=== PATIENT | female | born 1960 | race Caucasian/White ===

== ENCOUNTER 2016-12-21 09:33 | Emergency (ER) | payer OTHER, BC ==
[2016-12-21] MEDS ORDERED: IBUPROFEN 600 MG TABLET (FP) PO ONE (09:40)
[2016-12-21 09:43] VITALS: BP 149/99; PULSE 76; TEMP 98.5; BMI 41.5
--- NOTE | 2016-12-21 09:45 | PDOC ---
History of Present Illness - General Chief Complaint: Injury Stated Complaint: LEFT LEG PAIN S/P FALL X 5 DAYS AGO Time Seen by Provider: 12/21/16 09:39 History Source: Patient Exam Limitations: No Limitations - History of Present Illness Initial Comments: 12/21/16 09:47 56 year old female with past medical history of asthma presents with left knee pain x 1 week. The patient had recently been on vacation in [place]. Was walking down stairs when she missed a step. She felt onto both her knees. Denies other injuries. Pt has been ambulatory since last week. Reports pain in right knee and bruising, but that had improved. However, pt continues to report discomfort in left knee, particularly in certain twisting movements. Denies numbness, weakness. Past History - Past Medical History Allergies/Adverse Reactions: Allergies Allergy/AdvReac Type Severity Reaction Status Date / Time No Known Allergies Allergy Verified 12/21/16 09:43 Home Medications: Ambulatory Orders Budesonide/Formeterol Fumarate [SYMBICORT 80/4.5mcg -] 1 inh PO DAILY 12/21/16 Review of Systems - Review of Systems Able to Perform ROS?: Yes Comments:: 12/21/16 09:49 GENERAL/CONSTITUTIONAL: No fever, weakness. HEAD, EYES, EARS, NOSE AND THROAT: No change in vision. No ear pain or discharge. No sore throat. CARDIOVASCULAR: No chest pain or shortness of breath. RESPIRATORY: No cough, wheezing, or hemoptysis. GASTROINTESTINAL: No abdominal pain, nausea, vomiting, diarrhea, or decreased PO intolerance. GENITOURINARY: No dysuria, frequency, or change in urination. MUSCULOSKELETAL: +left knee pain SKIN: No rash NEUROLOGIC: No headache, vertigo, loss of consciousness, or change in strength/ sensation. ENDOCRINE: No increased thirst. No abnormal weight change. HEMATOLOGIC/LYMPHATIC: No anemia, easy bleeding, or history of blood clots. ALLERGIC/IMMUNOLOGIC: No hives or skin allergy. *Physical Exam - Physical Exam Comments: 12/21/16 09:49 GENERAL: Awake, alert, and fully oriented, in no acute distress. HEAD: No signs of trauma EYES: PERRLA, EOMI, sclera anicteric, conjunctiva clear ABDOMEN: Soft, nontender, normoactive bowel sounds. No guarding, no rebound. No masses EXTREMITIES: Normal range of motion, no edema. No clubbing or cyanosis. No cords, erythema, or tenderness Gait with mild antalgic gait. Sensation intact throughout. mild TTP tibial plateau region. Varus/valgus stress negative. negative anterior/posterior drawer test. Some discomfort elicited in knee with certain inversion and eversion movements of left knee NEUROLOGICAL: Cranial nerves II through XII grossly intact. Normal speech, normal gait SKIN: Warm, Dry, normal turgor, no rashes or lesions noted. ED Treatment Course - RADIOLOGY Radiology Studies Ordered: Category Date Time Status KNEE 3 POS-LEFT [RAD] Stat Radiology 12/21/16 09:39 Ordered Medical Decision Making - Medical Decision Making 12/21/16 09:50 Likely knee sprain. Knee xray to r/o fracture. Pt ambulatory for the last week. If xray negative, will RAINA wrap. RICE therapy. Weight bearing as tolerated. Follow up with orthopedics for likely PT and possible MRI as an outpatient. 12/21/16 10:26 Xray reviewed: There is some mild articular surface irregularity along the medial facet of the patella with question of small calcific fragments in this region on the sunrise view. There is also question of a small subchondral lucency in the medial trochlea. Findings may reflect osteochondral injury. I had discussed the option of a possible knee immobilizer and crutches. However, pt is concerned that she was having difficulty coordinating with a cane. Given risk of falling, and since the patient has been ambulatory for a week already, RAINA wrap was applied and patient was placed on weight bearing as tolerated. They will go make an appointment with DR. Lester office. Copy of xray report given to the patient. I discussed the physical exam findings, ancillary test results and final diagnoses with the patient. I answered all of the patient's questions. The patient was satisfied with the care received and felt comfortable with the discharge plan and treatment plan. The patient will call their primary care physician within 24 hours to arrange follow-up and will return to the Emergency Department with any new, persistant or worsening symptoms. *DC/Admit/Observation/Transfer Diagnosis at time of Disposition: Knee pain, left Qualifiers: Chronicity: acute Qualified Code(s): M25.562 - Pain in left knee - Discharge Dispostion Disposition: HOME Condition at time of disposition: Stable - Referrals Referrals: Anand Lester MD [Staff Physician] - - Patient Instructions Printed Discharge Instructions: DI for Knee Pain Additional Instructions: Take 600 mg ibuprofen every 6 to 8 hours as needed for pain. Elevate the leg as much as you can. Ice as needed. RAINA wrap. Follow up with orthopedics. Take the copy of the xray and bring it to your orthopedist.
== END 2016-12-21 10:37 | disposition home or self-care (01) ==
LOC: FER 09:33
DX: M25.562 Pain in left knee (principal); J45.909 Unspecified asthma, uncomplicated; W10.8XXA Fall (on) (from) other stairs and steps, initial encounter; Y93.89 Activity, other specified; Y92.89 Other specified places as the place of occurrence of the external cause
CPT/HCPCS: 73562-TC-LT; 99282-25

== ENCOUNTER 2017-03-02 08:05 | Day surgery (SDC) | payer OTHER, BC ==
[2017-03-01 13:54] VITALS: BMI 41.2
[2017-03-02] MEDS ORDERED: PROPOFOL 20 ML ONE ×3 (08:44)
[2017-03-02] MEDS ORDERED: LIDOCAINE HCL/PF 2% SDV 5ML VIAL ONE (08:44)
[2017-03-02] MEDS ORDERED: ALBUTEROL SO4 6.7 GM HFA INHALER IH ONE (09:02)
[2017-03-02 09:53] VITALS: TEMP 98.3
[2017-03-02 10:16] VITALS: PULSE 84
[2017-03-02 11:07] VITALS: BP 134/60
== END 2017-03-02 11:07 | disposition home or self-care (01) ==
LOC: JASU-ENDO 08:05
PROVIDERS: ATTEND Internal Medicine Gastroenterology
PROC: 0DJD8ZZ Inspection of Lower Intestinal Tract, Via Natural or Artificial Opening Endoscopic (ICD-10-PCS; principal; 2017-03-02 09:00)
DX: Z12.11 Encounter for screening for malignant neoplasm of colon (principal); K64.8 Other hemorrhoids

== ENCOUNTER 2017-03-03 05:25 | Day surgery (SDC) | payer OTHER, BC ==
[2017-02-24 19:00] VITALS: BMI 41.2
--- NOTE | 2017-02-25 11:12 | HP ---
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 History Source: Patient Limitations to Obtaining History: No Limitations - Past Medical History Pulmonary: Yes: Asthma Gastrointestinal: Yes: Other (achalasia) - Past Surgical History Past Surgical History: Yes: Hysterectomy Additional Past Surgical History: esophageal dilatation x 2 pilonidal cyst excision myomectomy - Smoking History Smoking history: Former smoker Have you smoked in the past 12 months: No If you are a former smoker, when did you quit?: 2011 - Alcohol/Substance Use Hx Alcohol Use: Yes (SOCIALLY) Home Medications - Allergies Allergies/Adverse Reactions: Allergies Allergy/AdvReac Type Severity Reaction Status Date / Time No Known Allergies Allergy Verified 12/21/16 09:43 - Home Medications Home Medications: Ambulatory Orders Budesonide/Formeterol Fumarate [SYMBICORT 80/4.5mcg -] 1 inh PO DAILY 12/21/16 Albuterol Sulfate [Proair Respiclick] 90 mcg IH PRN PRN 02/24/17 Family Disease History - Family Disease History Family Disease History: CA: Grandparent (breast cancer 60s), Father (colon cancer at 86) Other Family History: paternal GM breast cancer 50s. maternal GF colon cancer 86 Review of Systems - Review of Systems Constitutional: reports: No Symptoms Cardiovascular: reports: No Symptoms Respiratory: reports: No Symptoms Physical Examination Constitutional: Yes: Well Nourished, Calm Breast(s): Yes: Other (Ptotic D cup breasts with ecchymosis noted at core bx site. Left upper inner palpable density measuring about 2 cm. No other suspicious masses or adenopathy noted bilaterally.) Problem List - Problems (1) Breast cancer, left Code(s): C50.912 - MALIGNANT NEOPLASM OF UNSPECIFIED SITE OF LEFT FEMALE BREAST Qualifiers: Breast location: upper inner quadrant of breast Patient sex: female Assessment/Plan Plan: infusaport placement
[2017-03-03] MEDS ORDERED: PALONOSETRON HCL 0.25 MG in SODIUM CHLORIDE 50 ML IVPB ONE (10:00)
[2017-03-03] MEDS ORDERED: SODIUM CHLORIDE 500 ML IV ONE ×2 (10:00)
[2017-03-03] MEDS ORDERED: FOSAPREPITANT DIMEGLUMINE 150 MG in SODIUM CHLORIDE 150 ML IVPB ONE (10:00)
[2017-03-03] MEDS ORDERED: DEXAMETHASONE INJECTION 10 MG in SODIUM CHLORIDE 50 ML IVPB ONE (10:00)
[2017-03-03 10:08] LABS: BASOPHIL 0.7 % (0-2.0); EOSINOPHIL 3.2 % (0-4.5); MCH 28.1 pg (25.7-33.7); MCHC 33.7 g/dl (32.0-36.0); MEAN CELL VOLUME 83.5 fl (80-96); MEAN PLT VOLUME 8.7 fl (7.5-11.1); PLATELET COUNT 184 K/MM3 (134-434); RDW 14.3 % (11.6-15.6)
[2017-03-03 10:27] LABS: ALBUMIN 3.8 g/dl (3.4-5.0); ALK PHOS 73 U/L (45-117); ANION GAP 6 (8-16); BILIRUBIN,TOTAL 0.5 mg/dL (0.2-1.0); CO2 30 mmol/L (21-32); CREATININE 0.7 mg/dL (0.55-1.02); GLUCOSE,RANDOM 112 mg/dL (74-106); MAGNESIUM 2.5 mg/dL (1.8-2.4); SGOT/AST 21 U/L (15-37); SGPT/ALT 20 U/L (12-78); TOT PROT 6.9 g/dl (6.4-8.2)
[2017-03-03] MEDS ORDERED: DOXORUBICIN HCL IV ONE (10:30)
[2017-03-03] MEDS ORDERED: SODIUM CHLORIDE IV ONE (10:30)
[2017-03-03] MEDS ORDERED: CYCLOPHOSPHAMIDE IVPB ONE ×2 (10:45)
[2017-03-03] MEDS ORDERED: SODIUM CHLORIDE IVPB ONE ×2 (10:45)
[2017-03-03] MEDS ORDERED: LIDOCAINE HCL 1%, 10 MG/ML (20ML VIAL) ONE ×2 (11:07→12:56)
[2017-03-03] MEDS ORDERED: KETOROLAC TROMETHAMINE 30 MG/1 ML VIAL IVPUSH ONE (11:16)
[2017-03-03] MEDS ORDERED: ONDANSETRON 4 MG/2 ML VIAL IVPB PRN (11:16)
[2017-03-03] MEDS ORDERED: DEXTROSE 5%-0.45% SALINE 1,000 ML IV SCH (11:30)
[2017-03-03] MEDS ORDERED: MIDAZOLAM HCL 2 MG/2 ML SINGLE DOSE VIAL ONE (11:36)
[2017-03-03] MEDS ORDERED: PROPOFOL 20 ML ONE ×3 (11:36→12:33)
[2017-03-03] MEDS ORDERED: SUCCINYLCHOLINE CHLORIDE 200 MG/10 ML VIAL ONE (11:37)
[2017-03-03] MEDS ORDERED: DEXAMETHASONE SOD PHOSPHATE 4 MG/1 ML VIAL ONE (11:53)
[2017-03-03] MEDS ORDERED: ceFAZolin SODIUM 1 GM VIAL IVPB ONE (11:56)
[2017-03-03] MEDS ORDERED: SODIUM CHLORIDE 250 ML IV ONE (12:00)
[2017-03-03] MEDS ORDERED: LIDOCAINE HCL 1%, 10 MG/ML (20ML VIAL) IJ ONE (12:58)
[2017-03-03] MEDS ORDERED: KETOROLAC TROMETHAMINE 30 MG/1 ML VIAL ONE (13:58)
[2017-03-03 19:28] VITALS: TEMP 98.3
[2017-03-03 20:38] VITALS: BP 127/75; PULSE 66
--- NOTE | 2017-03-04 13:24 | OP ---
DATE OF OPERATION: 03/03/2017 PREOPERATIVE DIAGNOSIS: Left breast cancer. POSTOPERATIVE DIAGNOSIS: Left breast cancer, upper inner quadrant location. ANESTHESIA: Local with IV sedation. PRIMARY SURGEON: Paty Vivar MD SINGER SONGWRITER: CHRISTINA Mcdonough COMPLICATIONS: There were no complications. PROCEDURE: Insertion of a right internal jugular single-lumen port-a-cath for intravenous chemotherapy. DESCRIPTION OF PROCEDURE: Briefly, the patient is a 56-year-old G-1, P-1 postmenopausal white female with [place]i, Cam[place]onian, and Maltese descent. She has a family history with her maternal grandmother and paternal grandmother who had breast cancer. Her father had colon cancer. The patient was found to have a palpable mass in the upper inner aspect of the left breast, and mammography and ultrasound performed in Jan, 2017, showed a 2.1-cm highly suspicious density in the upper inner aspect of the left breast with a suspicious axillary lymph node. Core biopsy of the breast mass showed a poorly differentiated triple negative invasive duct cancer with a proliferative index of 40%. Axillary lymph node was biopsied and was positive. The patient underwent a MRI showing the mass in the left breast and suspicious lymph node. There were other bilateral densities, but directed ultrasound showed these other areas to be benign. The patient was advised to seek medical oncology evaluation and was a candidate for neoadjuvant chemotherapy. She was advised to have a port-a-cath placed to begin chemotherapy. The patient was brought in to [facility] to ambulatory surgery on March 03, 2017. She did have a slight cold and had had a colonoscopy the day before. She was felt to be afebrile and stable for the procedure, and on speaking to the medical oncologist, she wanted to start chemotherapy the same day. The patient was thus brought into the operating room after signing informed consent and site verification was made. She laid down on the OR table in the supine position. Venodynes were placed on the lower extremities. She received a gram of Ancef prior to incision. She underwent IV sedation. The right upper chest wall and neck were sterilely prepped and draped in the usual fashion. Her right arm was tucked at her side. She had a rolled sheet placed under her midline spine. Once she was properly anesthetized, 1% lidocaine was given directly underneath the right clavicle, and multiple attempts to access the right subclavian vein were unsuccessful. We used the intraoperative ultrasound, could not really see the vein well, and it is likely due to some dehydration from her being n.p.o. for her colonoscopy the day before, now for this surgery today. We were easily able to see the internal jugular vein, however, and so, we used the internal jugular vein approach, and the right internal jugular vein was accessed under ultrasound guidance, and a wire was placed into the superior vena cava under fluoroscopy. The wire was clipped to the drape. At this point, the upper right chest wall was anesthetized again with 1% lidocaine, and a 3-cm incision was made just below the right clavicle, and an infraclavicular pocket was fashioned. Hemostasis was achieved. The catheter was then tunneled from the infraclavicular pocket up to the exit side of the wire from the skin and the lower right neck. The port-a-cath chamber was placed into the infraclavicular pocket after being attached to the port-a-cath catheter and was secured in place using two separate 2-0 Prolene sutures. At this point, the introducer with the dilator was placed over the wire under fluoroscopy without difficulty, and the dilator was removed. The catheter was threaded down to the tear-away sheath, and the tear-away sheath was torn away leaving the catheter in good position in the superior vena cava. There was excellent blood return from the port-a-cath chamber. It was flushed with dilute heparin at 10 units per mL. At this point, all the wounds were closed using interrupted 3-0 deep dermal Vicryl suture and a running 4-0 subcuticular Biosyn suture to close the skin. Mastisol and Steri-Strips were applied over the wounds. The port-a-cath chamber was then accessed with the Arora needle and had good blood return and was flushed with 1.5 mL of concentrated heparin at 1000 units per mL. The patient tolerated the procedure well, was awake and alert, brought to the post-anesthesia care unit in stable condition. All sponge and needle counts were correct at the end of the case, and estimated blood loss was minimal. We did do a chest x-ray in the post-anesthesia care unit showing no pneumohemothorax and line was in good position. It can be used same day, and she will be transferred up to the outpatient oncology floor when she is fully recovered to start her first cycle of chemotherapy. The patient should follow up in the office in one week for formal wound pathology check. PATY VIVAR M.D. [id number]
== END 2017-03-03 20:47 | disposition home or self-care (01) ==
LOC: JASU-SURG 05:25 → J7W 15:05 → JASU-SURG 20:47
PROVIDERS: ATTEND Internal Medicine Hematology & Oncology
PROC: B518ZZA Fluoroscopy of Superior Vena Cava, Guidance (ICD-10-PCS; 2017-03-03)
PROC: 02HV33Z Insertion of Infusion Device into Superior Vena Cava, Percutaneous Approach (ICD-10-PCS; principal; 2017-03-03 11:30)
DX: C50.212 Malignant neoplasm of upper-inner quadrant of left female breast (principal); Z80.3 Family history of malignant neoplasm of breast
CPT/HCPCS: 36415; 71010-TC; 76000-TC; 80053; 83735; 84134; 85025; 86480; 94760; 96360; 96361; 96367; 96375; 96413; 96417; J1453; J1644; J2469; J9070

== ENCOUNTER 2017-03-04 18:19 | Day surgery (SDC) | payer OTHER, BC ==
[~2017-03-04 18:19] MED LIST: PEGFILGRASTIM 6 MG/0.6 ML DISP.SYRIN SQ ONE
[2017-03-04 18:43] VITALS: BP 132/73; PULSE 75; TEMP 98.8; BMI 40.5
== END 2017-03-04 19:09 | disposition home or self-care (01) ==
LOC: JONCNONCHE 18:19 → J7W 18:20 → JONCNONCHE 19:09
PROVIDERS: ATTEND Internal Medicine Hematology & Oncology
PROC: 3E013GC Introduction of Other Therapeutic Substance into Subcutaneous Tissue, Percutaneous Approach (ICD-10-PCS; principal; 2017-03-04)
DX: C50.212 Malignant neoplasm of upper-inner quadrant of left female breast (principal); Z80.3 Family history of malignant neoplasm of breast
CPT/HCPCS: 96372; J2505

== ENCOUNTER 2017-03-08 07:53 | Inpatient (IN) | payer OTHER, BC ==
[2017-03-08 07:58] VITALS: BMI 41.2
--- NOTE | 2017-03-08 08:18 | PDOC ---
History of Present Illness - General Chief Complaint: Shortness of Breath Stated Complaint: SOB History Source: Patient Exam Limitations: No Limitations - History of Present Illness Initial Comments: 03/08/17 10:15 This is a 56 yo F with PMH of Breast CA s/p chemo port placement and jan dose chemo on and Asthma (on daily symbicort and albuterol), who presents to ED with sob. She had uri symptoms last sat including dry cough and some nasal congestion. after her first chemo on she had 2 doses of dexamethasone and felt better but after the last dose developed increased sob, wheezing and mild throat pain. she denies f/c, chest pain h/a, dizziness, palpitations, hemoptysis , abd pain, diarrhea, constipation, n/v, melena, hematochezia. Pulse ox 93% on RA PCP Dr Song Onc: Dr Ch 03/08/17 10:34 03/08/17 10:43 Past History - Travel Traveled outside of the country in the last 30 days: No Close contact w/someone who was outside of country & ill: No - Past Medical History Allergies/Adverse Reactions: Allergies Allergy/AdvReac Type Severity Reaction Status Date / Time No Known Allergies Allergy Verified 03/08/17 07:58 Home Medications: Ambulatory Orders Budesonide/Formeterol Fumarate [SYMBICORT 80/4.5mcg -] 1 inh PO DAILY 12/21/16 Loratadine [Claritin] 10 mg PO DAILY 03/01/17 Albuterol Sulfate [Proventil HFA Inhaler -] 1 - 2 inh PO TID PRN 03/03/17 Anemia: No Asthma: Yes Cancer: Yes (BREAST) Cardiac Disorders: No CVA: No COPD: No CHF: No Dementia: No Diabetes: No GI Disorders: Yes (ACCHALASIA) Disorders: No HTN: No Hypercholesterolemia: No Liver Disease: No Seizures: No Thyroid Disease: No - Surgical History Abdominal Surgery: Yes (ESOPHAGEAL DIALATATION) Appendectomy: No Cardiac Surgery: No Cholecystectomy: No Lung Surgery: No Neurologic Surgery: No Orthopedic Surgery: No - Psycho/Social/Smoking Cessation Hx Anxiety: No Suicidal Ideation: No Smoking History: Former smoker Have you smoked in the past 12 months: No If you are a former smoker, when did you quit?: 15 YEARS AGO Information on smoking cessation initiated: No Hx Alcohol Use: No Drug/Substance Use Hx: No Substance Use Type: None Hx Substance Use Treatment: No Review of Systems - Review of Systems Able to Perform ROS?: Yes Is the patient limited Nauruan proficient: No Constitutional: No: Chills, Fever HEENTM: Yes: Nose Congestion, Throat Pain. No: Blurred Vision Respiratory: Yes: Cough, Shortness of Breath, Wheezing. No: Productive cough Cardiac (ROS): No: Chest Pain, Edema, Lightheadedness, Palpitations, Syncope, Chest Tightness ABD/GI: No: Constipated, Diarrhea, Nausea, Vomiting, Abdominal cramping, Tarry Stools : No: Dysuria, Flank Pain Musculoskeletal: No: Back Pain, Joint Pain Integumentary: No: Bruising, Pruritus, Rash Neurological: No: Headache, Numbness, Paresthesia Psychiatric: No: Anxiety, Depression Endocrine: No: Excessive Sweating, Increased Urine, Change in Weight Hematologic/Lymphatic: No: Anemia, Blood Clots, Easy Bleeding, Easy Bruising All Other Systems: Reviewed and Negative *Physical Exam - Vital Signs Last Vital Signs Temp Pulse Resp BP Pulse Ox 98.1 F 71 18 133/79 93 L 03/08/17 07:54 03/08/17 07:54 03/08/17 07:54 03/08/17 07:54 03/08/17 07:54 - Physical Exam Comments: 03/08/17 10:35 GENERAL: NAD AAOx3 HEENT: PERRLA EOMI sclera anicteric, conjunctiva clear. CV: RRR s1s2 PULM diffuse wheezes L>R, restricted air entry GI: nondistended, soft, nontender, no mass, normoactive bowel sounds NEURO: CN grossly intact SKIN: no lesions Heart Score/ECG Review #1 General ECG Interpretation: Sinus Rhythm, Normal Rate, Normal Intervals, No acute ischemic changes ED Treatment Course - LABORATORY CBC & Chemistry Diagram: 03/08/17 09:10 03/08/17 09:10 Medical Decision Making - Medical Decision Making 03/08/17 10:36 Patient presents with clinical picture most consistent with asthma exacerbation , r/o PNA, bronchitis, acute chest with neutopenia. PE unlikley given no chest pain and no tachycardia sepsis workup initiated per conversation with Dr Ch CXR ordered, EKG Started on 2L NC, diuonebs, symbicort, 125 IV solumedrol 03/08/17 10:39 WBC 13.5 Neutrophils 93.5 Started on Levaquin 03/08/17 10:[address] Song, will place patient in obs. 03/08/17 10:52 03/08/17 11:35 CXR no change from prior 03/08/17 11:35 cmp unremarkable. UA 1+ leuk est *DC/Admit/Observation/Transfer Diagnosis at time of Disposition: Breast cancer, left, Asthma exacerbation - Discharge Dispostion Admit: Yes - Referrals
[2017-03-08] MEDS ORDERED: BUDESONIDE/FORMETEROL FUMARATE 160/4.5 mcg INHALER IH ONE (08:34)
[2017-03-08] MEDS ORDERED: ALBUTEROL SO4 2.5/IPRATROPIUM 0.5 INH SOL 3 ML VIAL.NEB. NEB ONE ×2 (08:34→08:45)
[2017-03-08] MEDS ORDERED: SODIUM CHLORIDE 1,000 ML IV ONE (08:46)
--- NOTE | 2017-03-08 09:07 | PDOC ---
Attending Attestation - Resident Resident Name: Michelle Little - ED Attending Attestation I have performed the following: I have examined & evaluated the patient, The case was reviewed & discussed with the resident, I agree w/resident's findings & plan, Exceptions are as noted - HPI HPI: 03/08/17 09:03 56-year-old female with history of mild intermittent asthma, breast cancer status post first round of chemotherapy 5 days ago presents with persistent/ worsening of upper respiratory infectious symptoms. URI symptoms of dry cough and congestion began about one week ago, had her chemotherapy 5 days ago and feels that since then her chest congestion has slightly worsened, her cough has become more persistent, so she presents for evaluation after speaking with Dr. Ch. MAXIMUM TEMPERATURE 99.5 at home, distant smoking history quitting 15 years ago, no baseline anemia. - Physicial Exam PE: 03/08/17 09:06 O2 sat 93% on room air, afebrile. Generally well-appearing, speaking full sentences, in no acute general or respiratory distress Bibasilar rhonchi with inspiratory and expiratory wheezing, otherwise good air entry bilaterally - Medical Decision Making 03/08/17 09:06 Patient seen and evaluated with the resident. I agree with the overall evaluation, assessment, and management with the following summary of visit: 56-year-old female status post first round of chemotherapy for breast cancer, history of asthma presents with worsening URI symptoms. Presentation seems most consistent with asthma exacerbation, possible underlying pneumonia. Rule out neutropenia, lower suspicion for PE. Case discussed with Dr. Ch sepsis workup initiated nebulizers, cxr Per Dr. Ch, will likely start on abx Will discuss dispo with Dr. Flynn 03/08/17 10:44 Not neutropenic. Feels better after nebs. Received abx, admitted to Dr. Flynn with Dr. Ch consulting.
[2017-03-08 09:51] LABS: VENOUS BLOOD GAS HCO3 29.1 meq/L (19-25); VENOUS PH 7.46 (7.32-7.42)
[2017-03-08 09:59] LABS: URINE APPEARANCE CLEAR; URINE BILIRUBIN NEGATIVE (NEGATIVE); URINE BLOOD NEGATIVE (NEGATIVE); URINE COLOR LTYELLOW; URINE GLUCOSE (UA) NEGATIVE (NEGATIVE); URINE KETONE NEGATIVE (NEGATIVE); URINE NITRITE NEGATIVE (NEGATIVE); URINE PROTEIN NEGATIVE (NEGATIVE); URINE UROBILINOGEN NEGATIVE E.U./dl (0.2-1.0)
[2017-03-08 10:01] LABS: BASOPHIL 0.2 % (0-2.0); EOSINOPHIL 0.4 % (0-4.5); MCHC 33.4 g/dl (32.0-36.0); MEAN CELL VOLUME 83.7 fl (80-96); MEAN PLT VOLUME 8.9 fl (7.5-11.1); NEUTROPHILS 93.5 % (42.8-82.8); PLATELET COUNT 160 K/MM3 (134-434); WHITE BLOOD COUNT 13.5 K/mm3 (4.0-10.0)
[2017-03-08 10:02] LABS: URINE LEUK ESTERASE 1+ (NEGATIVE)
[2017-03-08] MEDS ORDERED: LEVOFLOXACIN 750 MG IVPB 150 ML IVPB ONE ×2 (10:14→11:44)
[2017-03-08 10:16] LABS: URINE MUCUS RARE; URINE RBC 1 /hpf (0-3); URINE WBC 3 /hpf (3-5)
[2017-03-08 10:17] LABS: ALBUMIN 3.8 g/dl (3.4-5.0); ANION GAP 10 (8-16); BILIRUBIN,TOTAL 0.8 mg/dL (0.2-1.0); CALCIUM 8.3 mg/dL (8.5-10.1); CO2 27 mmol/L (21-32); COCKROFT - GAULT 185.9205; CREATININE 0.6 mg/dL (0.55-1.02); GLUCOSE,RANDOM 97 mg/dL (74-106); SGOT/AST 12 U/L (15-37); SGPT/ALT 22 U/L (12-78); TOT PROT 6.8 g/dl (6.4-8.2)
[2017-03-08 10:18] LABS: ALK PHOS 91 U/L (45-117)
[2017-03-08 10:20] LABS: TROPONIN I < 0.02 ng/ml (0.00-0.05)
[2017-03-08] MEDS ORDERED: methylPREDNISolone NA SUCC 125 MG/2 ML VIAL IVPB ONE (10:42)
--- NOTE | 2017-03-08 10:47 | EKG ---
Test Reason : Blood Pressure : / mmHG Vent. Rate : 075 BPM Atrial Rate : 075 BPM P-R Int : 158 ms QRS Dur : 090 ms QT Int : 418 ms P-R-T Axes : 053 001 022 degrees QTc Int : 466 ms NORMAL SINUS RHYTHM NORMAL ECG WHEN COMPARED WITH ECG OF 24-FEB-2017 17:39, NO SIGNIFICANT CHANGE WAS FOUND Confirmed by GIRISH TREJO MD ([id number]) on 03/08/2017 10:47:22 AM Referred By: Confirmed By:GIRISH TREJO MD
[2017-03-08 11:08] LABS: INR 0.99 (0.82-1.09); PROTHROMBIN TIME (PATIENT) 10.9 SEC (9.98-11.88)
[2017-03-08 11:10] LABS: ACTIVATED PTT 28.5 SECONDS (26.9-34.4)
[2017-03-08] MEDS ORDERED: ACETAMINOPHEN 325 MG TABLET (FP) PO PRN (14:13)
--- NOTE | 2017-03-08 14:14 | HP ---
Admitting History and Physical - Primary Care Physician PCP: Quentin Gibson - Admission Chief Complaint: shortness of breath History of Present Illness: 56yo female with h/o asthma, breast ca s/p 1st chemotherapy session on Mar 03 who presents with worsening shortness of breath x 1 day. She had been placed on decadron along with her chemotherapy but the decadron was discontinued 2 days ago. She reports increasing shortness of breath, chest tightness, wheezing typical of her asthma. She has been hospitalized in the past for her asthma but never intubated. Her best peak flow is around 400. No fevers, chills or sweats. She does report sick contacts at home but denies any recent travel. History Source: Patient, Medical Record Limitations to Obtaining History: No Limitations - Past Medical History Pulmonary: Yes: Asthma Gastrointestinal: Yes: Other (achalasia) - Past Surgical History Past Surgical History: Yes: Hysterectomy Additional Past Surgical History: port placement - Smoking History Smoking history: Former smoker Have you smoked in the past 12 months: No If you are a former smoker, when did you quit?: 15 YEARS AGO - Alcohol/Substance Use Hx Alcohol Use: No Home Medications - Allergies Allergies/Adverse Reactions: Allergies Allergy/AdvReac Type Severity Reaction Status Date / Time No Known Allergies Allergy Verified 03/08/17 07:58 - Home Medications Home Medications: Ambulatory Orders Budesonide/Formeterol Fumarate [SYMBICORT 80/4.5mcg -] 1 inh PO DAILY 12/21/16 Loratadine [Claritin] 10 mg PO DAILY 03/01/17 Albuterol Sulfate [Proventil HFA Inhaler -] 1 - 2 inh PO TID PRN 03/03/17 Family Disease History - Family Disease History Family Disease History: CA: Grandparent (breast cancer 60s), Father (colon cancer at 86) Review of Systems - Review of Systems Constitutional: denies: Chills, Fever Eyes: denies: Recent Change in Vision HENT: denies: Nasal Congestion, Throat Pain Neck: denies: Stiffness, Tenderness Cardiovascular: reports: Shortness of Breath. denies: Chest Pain, Edema, Palpitations Respiratory: reports: Cough, SOB on Exertion, Wheezing. denies: Hemoptysis Gastrointestinal: denies: Abdominal Pain, Nausea, Vomiting Genitourinary: denies: Dysuria, Hematuria Neurological: denies: Dizziness, Headache Endocrine: denies: Unexplained Weight Loss Physical Examination Vital Signs: Vital Signs Temperature 98.1 F 03/08/17 07:54 Pulse Rate 75 03/08/17 08:50 Respiratory Rate 18 03/08/17 07:54 Blood Pressure 133/79 03/08/17 07:54 O2 Sat by Pulse Oximetry (%) 97 03/08/17 08:50 Constitutional: Yes: Calm Eyes: Yes: Conjunctiva Clear, EOM Intact HENT: Yes: Atraumatic, Normocephalic Neck: Yes: Supple, Trachea Midline Cardiovascular: Yes: Regular Rate and Rhythm Respiratory: Yes: Diminished (distant), Wheezes (scattered) Gastrointestinal: Yes: Normal Bowel Sounds, Soft. No: Tenderness Edema: No Neurological: Yes: Alert, Oriented Imaging - Results Chest X-ray: Report Reviewed, Image Reviewed Problem List - Problems (1) Asthma exacerbation Code(s): J45.901 - UNSPECIFIED ASTHMA WITH (ACUTE) EXACERBATION (2) Breast cancer, left Code(s): C50.912 - MALIGNANT NEOPLASM OF UNSPECIFIED SITE OF LEFT FEMALE BREAST Assessment/Plan Acute Asthma Exacerbation Breast Ca s/p recent chemotherapy - IV medrol - inhaled bronchodilators standing and PRN - O2 as needed - monitor peak flow - empiric antibiotics - DVT prophylaxis - will place in observation Rohith Bright MD
[2017-03-08] MEDS ORDERED: ALBUTEROL SO4 0.083% IH SOL 2.5 MG/3 ML VIAL.NEB. NEB PRN (14:23)
[2017-03-08] MEDS ORDERED: PNEUMOC 13-VAL CONJ-DIP CRM/PF 0.5 ML DISP.SYRIN IM ONE (15:45)
[2017-03-08] MEDS: methylPREDNISolone NA SUCC 40 MG/1 ML VIAL IVPB SCH (17:43)
[2017-03-08] MEDS: ALBUTEROL SO4 2.5/IPRATROPIUM 0.5 INH SOL 3 ML VIAL.NEB. NEB SCH ×2 (18:31→23:30)
[2017-03-09] MEDS: methylPREDNISolone NA SUCC 40 MG/1 ML VIAL IVPB SCH ×3 (02:11→18:02)
[2017-03-09] MEDS: ALBUTEROL SO4 2.5/IPRATROPIUM 0.5 INH SOL 3 ML VIAL.NEB. NEB SCH ×3 (06:40→17:38)
[2017-03-09 08:43] LABS: MCH 28.1 pg (25.7-33.7); MCHC 33.7 g/dl (32.0-36.0); MEAN CELL VOLUME 83.4 fl (80-96); MEAN PLT VOLUME 9.3 fl (7.5-11.1); NEUTROPHILS 95.5 % (42.8-82.8); PLATELET COUNT 152 K/MM3 (134-434); RDW 13.9 % (11.6-15.6); WHITE BLOOD COUNT 5.5 K/mm3 (4.0-10.0)
[2017-03-09 09:03] LABS: CALCIUM 8.3 mg/dL (8.5-10.1); CREATININE 0.5 mg/dL (0.55-1.02); MAGNESIUM 2.4 mg/dL (1.8-2.4); PHOSPHOROUS 2.6 mg/dL (2.5-4.9)
[2017-03-09] MEDS ORDERED: LEVOFLOXACIN 500 MG IVPB 100 ML IVPB ONE (10:00)
[2017-03-09] MEDS: LORATADINE 10 MG TABLET PO SCH (11:13)
[2017-03-09] MEDS: BUDESONIDE/FORMETEROL FUMARATE 80/4.5 mcg INHALER IH SCH (11:19)
--- NOTE | 2017-03-09 13:39 | PN ---
Progress Note (short form) - Note Progress Note: PULMONARY VSS ANICTERIC LEFT BASE CRACKLES S1S2 BS+ NO EDEMA LABS/MEDS/NOTES/IMAGING REVIEWED A/E BRONCHIAL ASTHMA NEWLY DIAGNOSED BREAST CA CONTINUE CURRENT TREATMENT/PLAN CHECK CBC CRYSTAL NOVOA MD
[2017-03-09] MEDS: PANTOPRAZOLE 40 MG TABLET (FP) PO SCH (16:00)
--- NOTE | 2017-03-09 21:33 | CONSULT ---
Consult - text type - Consultation Consultation Note: Patient seen and examined This is a 56 yo F with history of Breast CA stage II, s/p chemo port placement and first dose AC on 03/03, neulasta 03/04, and Asthma (on daily symbicort and albuterol), who presented with sob. She had uri symptoms last sat including dry cough and some nasal congestion. after her first chemo on she had 3 days of dexamethasone and felt better but after the last dose developed increased sob, wheezing and mild throat pain. she denies f/c, chest pain h/a, dizziness, palpitations, hemoptysis, abd pain, diarrhea, constipation , n/v, melena, hematochezia. - Past Medical History Asthma breast cancer --triple perianal fistula Allergies/Adverse Reactions: Allergies Allergy/AdvReac Type Severity Reaction Status Date / Time No Known Allergies Allergy Verified 03/08/17 07:58 Home Medications: Ambulatory Orders Budesonide/Formeterol Fumarate [SYMBICORT 80/4.5mcg -] 1 inh PO DAILY 12/21/16 Loratadine [Claritin] 10 mg PO DAILY 03/01/17 Albuterol Sulfate [Proventil HFA Inhaler -] 1 - 2 inh PO TID PRN 03/03/17 Active Medications Generic Name Dose Route Start Last Admin Trade Name Freq PRN Reason Stop Dose Admin Acetaminophen 650 mg 03/08/17 14:13 Tylenol - PO Q6H PRN FEVER OR PAIN Albuterol Sulfate 1 amp 03/08/17 14:23 Ventolin 0.083% Nebulizer Soln - NEB Q4H PRN SHORT OF BREATH/WHEEZING Albuterol/Ipratropium 1 amp 03/08/17 18:00 03/10/17 12:20 Duoneb - NEB 1 amp QIDR [facility] Administration Budesonide/Formoterol Fumarate 1 puff 03/09/17 10:00 03/10/17 10:13 Symbicort 80/4.5mcg - IH 1 puff DAILY [facility]O Administration Docusate Sodium 100 mg 03/09/17 15:33 03/09/17 21:39 Colace - PO 100 mg BID PRN Administration CONSTIPATION Levofloxacin 100 mls @ 100 mls/hr 03/10/17 10:00 03/10/17 09:57 Levaquin 500 Mg Premixed Ivpb - IVPB 100 mls/hr DAILY [facility] Administration Loratadine 10 mg 03/09/17 10:00 03/10/17 09:57 Claritin - PO 10 mg DAILY [facility] Administration Methylprednisolone Sodium Succinate 30 mg 03/10/17 22:00 Solu-Medrol - IVPB BID C[facility]O Pantoprazole Sodium 40 mg 03/09/17 15:45 03/10/17 09:56 Protonix - PO 40 mg DAILY [facility] Administration Senna 2 tab 03/09/17 15:30 03/09/17 21:39 Senna - PO 2 tab HS PRN Administration CONSTIPATION Zolpidem Tartrate 5 mg 03/09/17 16:04 03/09/17 21:39 Ambien - PO 5 mg HS PRN Administration INSOMNIA - Surgical History Abdominal Surgery: Yes (ESOPHAGEAL DIALATATION) - Psycho/Social/Smoking Cessation Hx Smoking History: Former smoker - Vital Signs Last Vital Signs Temp Pulse Resp BP Pulse Ox 98.1 F 71 18 133/79 93 L 03/08/17 07:54 03/08/17 07:54 03/08/17 07:54 03/08/17 07:54 03/08/17 07:54 - Physical Exam GENERAL: NAD AAOx3 HEENT: PERRLA EOMI sclera anicteric, conjunctiva clear. CV: RRR s1s2 PULM --good air entry. Lt. > rt. base crackles GI: nondistended, soft, nontender, no mass, normoactive bowel sounds NEURO: CN grossly intact SKIN: no lesions A/P 56 y/o patient with h/o triple negative breast cance, stge II, node+, getting neoadjuvant chemotherapy started AC -- C1 D7. s/p neulasta on 03/04 admitted with asthma exacerbation On levaquin/steroids Ramon ANC expected D7-10. currently nl WBC continuing current treatment ambien prn protonix
[2017-03-09] MEDS: ZOLPIDEM TARTRATE 5 MG TABLET PO PRN (21:39)
[2017-03-09] MEDS: DOCUSATE SODIUM 100 MG CAPSULE (FP) PO PRN (21:39)
[2017-03-09] MEDS: SENNOSIDES 8.6MG TABLET (FP) PO PRN (21:39)
[2017-03-10] MEDS: ALBUTEROL SO4 2.5/IPRATROPIUM 0.5 INH SOL 3 ML VIAL.NEB. NEB SCH ×5 (00:04→23:06)
[2017-03-10] MEDS: methylPREDNISolone NA SUCC 40 MG/1 ML VIAL IVPB SCH ×3 (01:05→21:23)
[2017-03-10 08:02] LABS: BASOPHIL 0.1 % (0-2.0); EOSINOPHIL 0.3 % (0-4.5); MCH 27.9 pg (25.7-33.7); MCHC 33.5 g/dl (32.0-36.0); MEAN CELL VOLUME 83.3 fl (80-96); PLATELET COUNT 150 K/MM3 (134-434); RDW 13.9 % (11.6-15.6); WHITE BLOOD COUNT 2.5 K/mm3 (4.0-10.0)
[2017-03-10 08:49] LABS: ALBUMIN 3.6 g/dl (3.4-5.0); ALK PHOS 81 U/L (45-117); ANION GAP 8 (8-16); BILIRUBIN,TOTAL 0.5 mg/dL (0.2-1.0); CALCIUM 8.6 mg/dL (8.5-10.1); CO2 27 mmol/L (21-32); COCKROFT - GAULT 185.9205; CREATININE 0.6 mg/dL (0.55-1.02); GLUCOSE,RANDOM 179 mg/dL (74-106); SGOT/AST 10 U/L (15-37); SGPT/ALT 23 U/L (12-78); TOT PROT 6.7 g/dl (6.4-8.2)
[2017-03-10] MEDS: PANTOPRAZOLE 40 MG TABLET (FP) PO SCH (09:56)
[2017-03-10] MEDS: LORATADINE 10 MG TABLET PO SCH (09:57)
[2017-03-10] MEDS: LEVOFLOXACIN 500 MG IVPB 100 ML IVPB SCH (09:57)
[2017-03-10] MEDS ORDERED: PT OWN MED DRAWER 7, Y5N ONE (10:12)
[2017-03-10] MEDS: BUDESONIDE/FORMETEROL FUMARATE 80/4.5 mcg INHALER IH SCH (10:13)
--- NOTE | 2017-03-10 10:16 | PN ---
Progress Note (short form) - Note Progress Note: Breathing feels better today. Dry cough. No CP. Intake & Output 03/07/17 03/08/17 03/09/17 03/10/17 23:59 23:59 23:59 23:59 Intake Total 890 990 0 Balance 890 990 0 Weight 248 lb Last Vital Signs Temp Pulse Resp BP Pulse Ox 97.8 F 88 20 145/81 96 03/10/17 09:20 03/10/17 09:20 03/10/17 09:20 03/10/17 09:20 03/10/17 03:00 Active Medications Acetaminophen (Tylenol -) 650 mg PO Q6H PRN PRN Reason: FEVER OR PAIN Albuterol Sulfate (Ventolin 0.083% Nebulizer Soln -) 1 amp NEB Q4H PRN PRN Reason: SHORT OF BREATH/WHEEZING Albuterol/Ipratropium (Duoneb -) 1 amp NEB QIDR [facility] Last Admin: 03/10/17 07:01 Dose: 1 amp Budesonide/Formoterol Fumarate (Symbicort 80/4.5mcg -) 1 puff IH DAILY [facility] Last Admin: 03/10/17 10:13 Dose: 1 puff Docusate Sodium (Colace -) 100 mg PO BID PRN PRN Reason: CONSTIPATION Last Admin: 03/09/17 21:39 Dose: 100 mg Levofloxacin (Levaquin 500 Mg Premixed Ivpb -) 100 mls @ 100 mls/hr IVPB DAILY [facility] Last Admin: 03/10/17 09:57 Dose: 100 mls/hr Loratadine (Claritin -) 10 mg PO DAILY [facility] Last Admin: 03/10/17 09:57 Dose: 10 mg Methylprednisolone Sodium Succinate (Solu-Medrol -) 40 mg IVPB Q8H-IV [facility] Last Admin: 03/10/17 09:56 Dose: 40 mg Pantoprazole Sodium (Protonix -) 40 mg PO DAILY [facility] Last Admin: 03/10/17 09:56 Dose: 40 mg Senna (Senna -) 2 tab PO HS PRN PRN Reason: CONSTIPATION Last Admin: 03/09/17 21:39 Dose: 2 tab Zolpidem Tartrate (Ambien -) 5 mg PO HS PRN PRN Reason: INSOMNIA Last Admin: 03/09/17 21:39 Dose: 5 mg Constitutional: Yes: NAD Eyes: Yes: Conjunctiva Clear, EOM Intact HENT: Yes: Atraumatic, Normocephalic Neck: Yes: Supple, Trachea Midline Cardiovascular: Yes: Regular Rate and Rhythm Respiratory: Yes: Few scattered expiratory Wheezes Gastrointestinal: Yes: Normal Bowel Sounds, Soft. No: Tenderness Edema: No Neurological: Yes: Alert, Oriented Laboratory Results - last 24 hr 03/10/17 03/10/17 07:30 07:30 WBC 2.5 L D RBC 4.60 Hgb 12.8 Hct 38.3 MCV 83.3 MCHC 33.5 RDW 13.9 Plt Count 150 MPV 9.0 Neutrophils % 91.0 H Lymphocytes % 7.2 L D Monocytes % 1.4 L D Eosinophils % 0.3 D Basophils % 0.1 D Sodium 138 Potassium 4.5 Chloride 103 Carbon Dioxide 27 Anion Gap 8 BUN 13 Creatinine 0.6 Creat Clearance w eGFR > 60 Random Glucose 179 H Calcium 8.6 Total Bilirubin 0.5 D AST 10 L ALT 23 Alkaline Phosphatase 81 Total Protein 6.7 Albumin 3.6 Problem List - Problems (1) Asthma exacerbation Code(s): J45.901 - UNSPECIFIED ASTHMA WITH (ACUTE) EXACERBATION (2) Breast cancer, left Code(s): C50.912 - MALIGNANT NEOPLASM OF UNSPECIFIED SITE OF LEFT FEMALE BREAST Assessment/Plan Acute Asthma Exacerbation Breast Ca s/p recent chemotherapy - Decrease IV medrol - inhaled bronchodilators standing and PRN - O2 as needed - monitor peak flow - Levaquin - DVT prophylaxis - Likely D/C in AM Dr Tijerina
--- NOTE | 2017-03-10 14:54 | PN ---
Progress Note (short form) - Note Progress Note: Patient seen and examined Feels better Last Vital Signs Temp Pulse Resp BP Pulse Ox 97.5 F L 89 21 147/80 96 03/10/17 14:00 03/10/17 14:00 03/10/17 14:00 03/10/17 14:00 03/10/17 11:00 Cor: RSR, No murmurs, No gallops Lungs: scattered crackles at bases Abd: Soft, Normal bowel sounds, No organomegaly Ext:No significant edema Skin: No rashes, Integument intact Abnormal Lab Results 03/10/17 03/10/17 07:30 07:30 WBC 2.5 L D Neutrophils % 91.0 H Lymphocytes % 7.2 L D Monocytes % 1.4 L D Random Glucose 179 H AST 10 L Active Medications Generic Name Dose Route Start Last Admin Trade Name Freq PRN Reason Stop Dose Admin Acetaminophen 650 mg 03/08/17 14:13 Tylenol - PO Q6H PRN FEVER OR PAIN Albuterol Sulfate 1 amp 03/08/17 14:23 Ventolin 0.083% Nebulizer Soln - NEB Q4H PRN SHORT OF BREATH/WHEEZING Albuterol/Ipratropium 1 amp 03/08/17 18:00 03/10/17 12:20 Duoneb - NEB 1 amp QIDR [facility]IP[facility]O Administration Budesonide/Formoterol Fumarate 1 puff 03/09/17 10:00 03/10/17 10:13 Symbicort 80/4.5mcg - IH 1 puff DAILY [facility]IP[facility]O Administration Docusate Sodium 100 mg 03/09/17 15:33 03/09/17 21:39 Colace - PO 100 mg BID PRN Administration CONSTIPATION Levofloxacin 100 mls @ 100 mls/hr 03/10/17 10:00 03/10/17 09:57 Levaquin 500 Mg Premixed Ivpb - IVPB 100 mls/hr DAILY [facility] Administration Loratadine 10 mg 03/09/17 10:00 03/10/17 09:57 Claritin - PO 10 mg DAILY [facility]IP[facility]O Administration Methylprednisolone Sodium Succinate 30 mg 03/10/17 22:00 Solu-Medrol - IVPB BID C[facility]O Pantoprazole Sodium 40 mg 03/09/17 15:45 03/10/17 09:56 Protonix - PO 40 mg DAILY [facility]IP[facility]O Administration Senna 2 tab 03/09/17 15:30 03/09/17 21:39 Senna - PO 2 tab HS PRN Administration CONSTIPATION Zolpidem Tartrate 5 mg 03/09/17 16:04 03/09/17 21:39 Ambien - PO 5 mg HS PRN Administration INSOMNIA A/P 56 y/o patient with h/o triple negative breast cance, stge II, node+, getting neoadjuvant chemotherapy started AC -- C1 D8. s/p neulasta on 03/04 admitted with asthma exacerbation On levaquin/steroids Ramon ANC expected D7-10. Steroid taper per pulmonary ambien prn protonix
[2017-03-10] MEDS: ZOLPIDEM TARTRATE 5 MG TABLET PO PRN (21:22)
[2017-03-10] MEDS: DOCUSATE SODIUM 100 MG CAPSULE (FP) PO PRN (21:22)
[2017-03-10] MEDS: SENNOSIDES 8.6MG TABLET (FP) PO PRN (21:22)
[2017-03-11] MEDS: ALBUTEROL SO4 2.5/IPRATROPIUM 0.5 INH SOL 3 ML VIAL.NEB. NEB SCH ×3 (06:30→17:10)
[2017-03-11] MEDS: LEVOFLOXACIN 500 MG IVPB 100 ML IVPB SCH (09:09)
[2017-03-11] MEDS: methylPREDNISolone NA SUCC 40 MG/1 ML VIAL IVPB SCH ×2 (09:10→21:39)
[2017-03-11] MEDS: PANTOPRAZOLE 40 MG TABLET (FP) PO SCH (09:10)
[2017-03-11] MEDS: LORATADINE 10 MG TABLET PO SCH (09:11)
[2017-03-11] MEDS: BUDESONIDE/FORMETEROL FUMARATE 80/4.5 mcg INHALER IH SCH (09:12)
[2017-03-11 09:24] LABS: MCH 27.9 pg (25.7-33.7); MCHC 33.6 g/dl (32.0-36.0); MEAN CELL VOLUME 82.9 fl (80-96); MEAN PLT VOLUME 8.7 fl (7.5-11.1); PLATELET COUNT 146 K/MM3 (134-434); RDW 13.8 % (11.6-15.6)
[2017-03-11 09:25] LABS: WHITE BLOOD COUNT 1.2 K/mm3 (4.0-10.0)
[2017-03-11 09:53] LABS: ALBUMIN 3.6 g/dl (3.4-5.0); ANION GAP 10 (8-16); BILIRUBIN,TOTAL 0.6 mg/dL (0.2-1.0); CALCIUM 8.5 mg/dL (8.5-10.1); CO2 29 mmol/L (21-32); CREATININE 0.5 mg/dL (0.55-1.02); GLUCOSE,RANDOM 128 mg/dL (74-106); SGOT/AST 7 U/L (15-37); SGPT/ALT 23 U/L (12-78); TOT PROT 6.7 g/dl (6.4-8.2)
[2017-03-11 09:54] LABS: ALK PHOS 76 U/L (45-117)
[2017-03-11 11:52] LABS: PLATELET ESTIMATE ADEQUATE (NORMAL)
--- NOTE | 2017-03-11 12:33 | PN ---
Progress Note (short form) - Note Progress Note: ID Consult dictated 56 y/o female, recent dx stage II triple negative L breast ca s/pfirst cycyle AC 03/03/17 admitted with acute asthma exacerbation. WBC 1.2. Received neulasta 03/04/17. Afebrile, cultures negative Follow up CXR ordered. Continue Levaquin
--- NOTE | 2017-03-11 14:15 | PN ---
Progress Note, Physician History of Present Illness: pulmonary alert,+ cough,less dyspneic - Current Medication List Current Medications: Active Medications Acetaminophen (Tylenol -) 650 mg PO Q6H PRN PRN Reason: FEVER OR PAIN Albuterol Sulfate (Ventolin 0.083% Nebulizer Soln -) 1 amp NEB Q4H PRN PRN Reason: SHORT OF BREATH/WHEEZING Albuterol/Ipratropium (Duoneb -) 1 amp NEB QIDR [facility] Last Admin: 03/11/17 11:48 Dose: 1 amp Budesonide/Formoterol Fumarate (Symbicort 80/4.5mcg -) 1 puff IH DAILY [facility] Last Admin: 03/11/17 09:12 Dose: 1 puff Docusate Sodium (Colace -) 100 mg PO BID PRN PRN Reason: CONSTIPATION Last Admin: 03/10/17 21:22 Dose: 100 mg Levofloxacin (Levaquin 500 Mg Premixed Ivpb -) 100 mls @ 100 mls/hr IVPB DAILY [facility] Last Admin: 03/11/17 09:09 Dose: 100 mls/hr Loratadine (Claritin -) 10 mg PO DAILY [facility] Last Admin: 03/11/17 09:11 Dose: 10 mg Methylprednisolone Sodium Succinate (Solu-Medrol -) 30 mg IVPB BID [facility] Last Admin: 03/11/17 09:10 Dose: 30 mg Pantoprazole Sodium (Protonix -) 40 mg PO DAILY [facility] Last Admin: 03/11/17 09:10 Dose: 40 mg Senna (Senna -) 2 tab PO HS PRN PRN Reason: CONSTIPATION Last Admin: 03/10/17 21:22 Dose: 2 tab Zolpidem Tartrate (Ambien -) 5 mg PO HS PRN PRN Reason: INSOMNIA Last Admin: 03/10/17 21:22 Dose: 5 mg - Objective Vital Signs: Vital Signs Temperature 98.9 F 03/11/17 10:00 Pulse Rate 67 03/11/17 11:22 Respiratory Rate 18 03/11/17 10:00 Blood Pressure 135/78 03/11/17 10:00 O2 Sat by Pulse Oximetry (%) 94 L 03/11/17 11:22 Constitutional: Yes: Well Nourished, Calm Eyes: Yes: WNL HENT: Yes: Nasal Congestion Neck: Yes: WNL Cardiovascular: Yes: Regular Rate and Rhythm, S1, S2 Respiratory: Yes: Wheezes (scatttereed keith wheezes) Gastrointestinal: Yes: Normal Bowel Sounds, Soft Extremities: Yes: WNL Edema: No Labs: CBC, BMP 03/11/17 08:50 03/11/17 08:50 INR, PTT INR 0.99 (0.82-1.09) 03/08/17 09:10 Problem List - Problems (1) Breast cancer, left Code(s): C50.912 - MALIGNANT NEOPLASM OF UNSPECIFIED SITE OF LEFT FEMALE BREAST (2) Neutropenia Code(s): D70.9 - NEUTROPENIA, UNSPECIFIED Assessment/Plan Problem List - Problems (1) Asthma exacerbation Code(s): J45.901 - UNSPECIFIED ASTHMA WITH (ACUTE) EXACERBATION (2) Breast cancer, left Code(s): C50.912 - MALIGNANT NEOPLASM OF UNSPECIFIED SITE OF LEFT FEMALE BREAST Assessment/Plan Acute Asthma Exacerbation Breast Ca s/p recent chemotherapy Neutropenia - Decrease IV medrol - inhaled bronchodilators standing and PRN - O2 as needed - monitor peak flow - Levaquin - DVT prophylaxis - monitor cbc,wbc DR VILLARREAL
--- NOTE | 2017-03-11 14:46 | CONS ---
DATE OF CONSULTATION: DATE OF DICTATION: 03/11/2017 HISTORY OF PRESENT ILLNESS: A 56-year-old female with a history of recently diagnosed stage 2 triple-negative left breast CA evaluated for bronchitis. The patient was recently diagnosed with breast CA. She had undergone her 1st cycle of chemotherapy (Adriamycin and Cytoxan) on March 03, 2017. She was admitted to the hospital on March 08, 2017, with increasing shortness of breath, chest tightness, and wheezing. She had developed a dry cough and nasal congestion a few days prior. She was admitted with a diagnosis of acute exacerbation of bronchial asthma. She was treated with inhaled bronchodilators and intravenous corticosteroids. Chest x-ray was negative for acute infiltrate. She was empirically treated with Levaquin for tracheobronchitis, possible pneumonia. Her course has now been complicated by worsening leukopenia and neutropenia. She has remained afebrile on steroids. At the present time, she reports feeling well. She has no focal complaints. She denies any chest pain, shortness of breath, cough, sputum production, or wheezing. She has occasional white sputum production. She denies any ill contacts. She is a former smoker. No recent travel. No recent hospitalizations. She received Neulasta on March 04, 2017. PAST MEDICAL HISTORY: Positive for stage 2 triple-negative left breast CA, node positive, status post 1st cycle of chemotherapy, history of COPD and asthma. PAST SURGICAL HISTORY: Status post port placement and hysterectomy. ALLERGIES: No known allergies. MEDICATIONS: Levaquin, Solu-Medrol, Tylenol, Ventolin, Symbicort, Colace, Protonix. SOCIAL HISTORY: Lives at home with family. Former smoker. SYSTEMS REVIEW: Neurologic: No loss of consciousness, seizure activity, focal weakness. Cardiac: Negative chest pain or palpitations.Respiratory: As per HPI. Gastrointestinal: Negative vomiting or diarrhea. Genitourinary: Negative for urinary tract infection. LABORATORY DATA: White count 1.2, 45 neutrophils, 36 lymphocytes, 5 monocytes, 9 eosinophils, hematocrit 38.0, platelet count 146. Liver enzymes normal. Urinalysis: 3 white cells. Chest x-ray: Negative for acute infiltrate. PHYSICAL EXAMINATION:General: She is awake and alert. She is not acutely toxic appearing. Vital Signs: Temperature 98.9, blood pressure 135/78, pulse 67, regular, respirations 18 per minute. HEENT: Sclerae anicteric. Cardiac: Heart sounds S1, S2. Lungs: Bilateral rhonchi with occasional wheeze. Abdomen: Soft. No tenderness elicited. No mass, rebound, or rigidity. Extremities: Negative for edema. Port Site: No erythema or tenderness. IMPRESSION: 1. Acute exacerbation of bronchial asthma. 2. Chemotherapy-induced leukopenia/neutropenia. 3. Possible tracheobronchitis. RECOMMENDATIONS: Patient is afebrile on steroids. Cultures negative. Suspect white count should come up now 9 days post chemotherapy. Repeat chest x-ray. No new infiltrate, may substitute oral Levaquin next 24 to 48 hours. Will reevaluate should she develop high-grade fever, shaking chills, or worsening clinical condition in the setting of persistent neutropenia. Thank you for the kind referral. KHARI HARDING M.D. [id number]
[2017-03-11] MEDS: ENOXAPARIN NA (PORCINE) 40 MG/0.4 ML DISP.SYRIN SQ SCH (17:16)
--- NOTE | 2017-03-11 19:26 | PN ---
Progress Note (short form) - Note Progress Note: Patient seen and examined Feels well Last Vital Signs Temp Pulse Resp BP Pulse Ox 98.6 F 85 18 142/80 94 L 03/11/17 15:25 03/11/17 15:25 03/11/17 10:00 03/11/17 15:25 03/11/17 11:22 Cor: RSR, No murmurs, No gallops Lungs: scattered crackles at bases Abd: Soft, Normal bowel sounds, No organomegaly Ext:No significant edema Skin: No rashes, Integument intact Abnormal Lab Results 03/11/17 03/11/17 08:50 08:50 WBC 1.2 L* D Eosinophils % 9.0 H D Creatinine 0.5 L Random Glucose 128 H D AST 7 L D Active Medications Generic Name Dose Route Start Last Admin Trade Name Freq PRN Reason Stop Dose Admin Acetaminophen 650 mg 03/08/17 14:13 Tylenol - PO Q6H PRN FEVER OR PAIN Albuterol Sulfate 1 amp 03/08/17 14:23 Ventolin 0.083% Nebulizer Soln - NEB Q4H PRN SHORT OF BREATH/WHEEZING Albuterol/Ipratropium 1 amp 03/08/17 18:00 03/11/17 17:10 Duoneb - NEB 1 amp QIDR [facility] Administration Budesonide/Formoterol Fumarate 2 puff 03/11/17 22:00 Symbicort 160/4.5mcg - IH BID [facility] Docusate Sodium 100 mg 03/09/17 15:33 03/10/17 21:22 Colace - PO 100 mg BID PRN Administration CONSTIPATION Enoxaparin Sodium 40 mg 03/11/17 16:00 03/11/17 17:16 Lovenox - SQ 40 mg DAILY [facility] Administration Levofloxacin 100 mls @ 100 mls/hr 03/10/17 10:00 03/11/17 09:09 Levaquin 500 Mg Premixed Ivpb - IVPB 100 mls/hr DAILY [facility] Administration Loratadine 10 mg 03/09/17 10:00 03/11/17 09:11 Claritin - PO 10 mg DAILY [facility] Administration Methylprednisolone Sodium Succinate 20 mg 03/11/17 14:16 Solu-Medrol - IVPB BID [facility] Pantoprazole Sodium 40 mg 03/09/17 15:45 03/11/17 09:10 Protonix - PO 40 mg DAILY [facility] Administration Senna 2 tab 03/09/17 15:30 03/10/17 21:22 Senna - PO 2 tab HS PRN Administration CONSTIPATION Zolpidem Tartrate 5 mg 03/09/17 16:04 03/10/17 21:22 Ambien - PO 5 mg HS PRN Administration INSOMNIA A/P 56 y/o patient with h/o triple negative breast cance, stge II, node+, getting neoadjuvant chemotherapy started AC -- C1 D9. s/p neulasta on 03/04 admitted with asthma exacerbation On levaquin/steroids Ramon ANC expected D7-10. Today--1.2 Continue levaqion Switch to broader spectrum if T> 100.4 or any other change in sttus discussed with ID team Steroid taper per pulmonary ambien prn protonix
[2017-03-11] MEDS: ZOLPIDEM TARTRATE 5 MG TABLET PO PRN (21:40)
[2017-03-11] MEDS: BUDESONIDE/FORMETEROL FUMARATE 160/4.5 mcg INHALER IH SCH (21:50)
[2017-03-12] MEDS: ALBUTEROL SO4 2.5/IPRATROPIUM 0.5 INH SOL 3 ML VIAL.NEB. NEB SCH ×4 (00:12→18:34)
[2017-03-12 08:11] LABS: MCH 28.1 pg (25.7-33.7); MCHC 33.7 g/dl (32.0-36.0); MEAN CELL VOLUME 83.3 fl (80-96); MEAN PLT VOLUME 8.6 fl (7.5-11.1); PLATELET COUNT 129 K/MM3 (134-434); RDW 13.5 % (11.6-15.6)
[2017-03-12 08:28] LABS: WHITE BLOOD COUNT 0.6 K/mm3 (4.0-10.0)
[2017-03-12 08:56] LABS: ALBUMIN 3.6 g/dl (3.4-5.0); ANION GAP 11 (8-16); CALCIUM 8.4 mg/dL (8.5-10.1); CO2 27 mmol/L (21-32); GLUCOSE,RANDOM 135 mg/dL (74-106)
[2017-03-12 09:00] LABS: ALK PHOS 78 U/L (45-117); BILIRUBIN,TOTAL 0.6 mg/dL (0.2-1.0); CREATININE 0.6 mg/dL (0.55-1.02); SGOT/AST 12 U/L (15-37); SGPT/ALT 29 U/L (12-78); TOT PROT 6.8 g/dl (6.4-8.2)
[2017-03-12] MEDS: PANTOPRAZOLE 40 MG TABLET (FP) PO SCH (09:29)
[2017-03-12] MEDS: ENOXAPARIN NA (PORCINE) 40 MG/0.4 ML DISP.SYRIN SQ SCH (09:29)
[2017-03-12] MEDS: LEVOFLOXACIN 500 MG IVPB 100 ML IVPB SCH (09:30)
[2017-03-12] MEDS: methylPREDNISolone NA SUCC 40 MG/1 ML VIAL IVPB SCH ×2 (09:30→21:52)
[2017-03-12] MEDS: BUDESONIDE/FORMETEROL FUMARATE 160/4.5 mcg INHALER IH SCH ×2 (09:31→21:52)
[2017-03-12 10:20] LABS: PLATELET ESTIMATE ADEQUATE (NORMAL)
--- NOTE | 2017-03-12 12:26 | PN ---
Progress Note (short form) - Note Progress Note: Oncology follow-up note S: Patient with no complaints when visited today. Does not have any pain or SOB. Last Vital Signs Temp Pulse Resp BP Pulse Ox 98.8 F 84 18 145/77 96 03/12/17 09:04 03/12/17 09:04 03/12/17 09:04 03/12/17 09:04 03/12/17 11:00 Physical exam Cor: RSR, No murmurs, No gallops Lungs: scattered crackles at bases Abd: Soft, Normal bowel sounds, No organomegaly Ext:No significant edema Skin: No rashes, Integument intact Current Medications Generic Name Dose Route Start Last Admin Trade Name Freq PRN Reason Stop Dose Admin Acetaminophen 650 mg 03/08/17 14:13 Tylenol - PO Q6H PRN FEVER OR PAIN Albuterol Sulfate 1 amp 03/08/17 14:23 Ventolin 0.083% Nebulizer Soln - NEB Q4H PRN SHORT OF BREATH/WHEEZING Albuterol/Ipratropium 1 amp 03/08/17 18:00 03/12/17 12:04 Duoneb - NEB 1 amp QIDR [facility] Administration Budesonide/Formoterol Fumarate 2 puff 03/11/17 22:00 03/12/17 09:31 Symbicort 160/4.5mcg - IH 2 puff BID [facility] Administration Docusate Sodium 100 mg 03/09/17 15:33 03/10/17 21:22 Colace - PO 100 mg BID PRN Administration CONSTIPATION Enoxaparin Sodium 40 mg 03/11/17 16:00 03/12/17 09:29 Lovenox - SQ 40 mg DAILY [facility] Administration Levofloxacin 100 mls @ 100 mls/hr 03/10/17 10:00 03/12/17 09:30 Levaquin 500 Mg Premixed Ivpb - IVPB 100 mls/hr DAILY [facility] Administration Methylprednisolone Sodium Succinate 20 mg 03/11/17 14:16 03/12/17 09:30 Solu-Medrol - IVPB 20 mg BID [facility]O Administration Pantoprazole Sodium 40 mg 03/09/17 15:45 03/12/17 09:29 Protonix - PO 40 mg DAILY [facility] Administration Senna 2 tab 03/09/17 15:30 03/10/17 21:22 Senna - PO 2 tab HS PRN Administration CONSTIPATION Zolpidem Tartrate 5 mg 03/09/17 16:04 03/11/17 21:40 Ambien - PO 5 mg HS PRN Administration INSOMNIA CBC, BMP 03/12/17 06:40 03/12/17 06:40 A/P 56 y/o patient with h/o triple negative breast cancer, stge II, node+, getting neoadjuvant chemotherapy started AC -- C1 D9. s/p neulasta on 03/04 admitted with asthma exacerbation, she is well controlled on current meds On levaquin/steroids Kenna ANC expected D7-10. Today--0.6 Explained to her that we would like to keep her through her [facility] inpatient Continue levaquin Switch to broader spectrum if T> 100.4 or any other change in vitals Steroid taper per pulmonary ambien prn protonix
--- NOTE | 2017-03-12 13:23 | PN ---
Progress Note, Physician History of Present Illness: pulmonary] alert,nad,-sob,-cough - Current Medication List Current Medications: Active Medications Acetaminophen (Tylenol -) 650 mg PO Q6H PRN PRN Reason: FEVER OR PAIN Albuterol Sulfate (Ventolin 0.083% Nebulizer Soln -) 1 amp NEB Q4H PRN PRN Reason: SHORT OF BREATH/WHEEZING Albuterol/Ipratropium (Duoneb -) 1 amp NEB QIDR [facility] Last Admin: 03/12/17 12:04 Dose: 1 amp Budesonide/Formoterol Fumarate (Symbicort 160/4.5mcg -) 2 puff IH BID [facility] Last Admin: 03/12/17 09:31 Dose: 2 puff Docusate Sodium (Colace -) 100 mg PO BID PRN PRN Reason: CONSTIPATION Last Admin: 03/10/17 21:22 Dose: 100 mg Enoxaparin Sodium (Lovenox -) 40 mg SQ DAILY [facility] Last Admin: 03/12/17 09:29 Dose: 40 mg Levofloxacin (Levaquin 500 Mg Premixed Ivpb -) 100 mls @ 100 mls/hr IVPB DAILY [facility] Last Admin: 03/12/17 09:30 Dose: 100 mls/hr Methylprednisolone Sodium Succinate (Solu-Medrol -) 20 mg IVPB BID [facility] Last Admin: 03/12/17 09:30 Dose: 20 mg Pantoprazole Sodium (Protonix -) 40 mg PO DAILY [facility] Last Admin: 03/12/17 09:29 Dose: 40 mg Senna (Senna -) 2 tab PO HS PRN PRN Reason: CONSTIPATION Last Admin: 03/10/17 21:22 Dose: 2 tab Zolpidem Tartrate (Ambien -) 5 mg PO HS PRN PRN Reason: INSOMNIA Last Admin: 03/11/17 21:40 Dose: 5 mg - Objective Vital Signs: Vital Signs Temperature 98.8 F 03/12/17 09:04 Pulse Rate 84 03/12/17 09:04 Respiratory Rate 18 03/12/17 09:04 Blood Pressure 145/77 03/12/17 09:04 O2 Sat by Pulse Oximetry (%) 96 03/12/17 11:00 Constitutional: Yes: Well Nourished, Calm Eyes: Yes: WNL HENT: Yes: WNL Neck: Yes: WNL Cardiovascular: Yes: Regular Rate and Rhythm, S1, S2 Respiratory: Yes: Rales (bibasialr crackles) Gastrointestinal: Yes: Normal Bowel Sounds, Soft Extremities: Yes: WNL Edema: No Labs: CBC, BMP 03/12/17 06:40 03/12/17 06:40 INR, PTT INR 0.99 (0.82-1.09) 03/08/17 09:10 - ....Imaging Chest X-ray: Report Reviewed, Image Reviewed (LINEAR ATELECTASIS LEFT BASE) Problem List - Problems (1) Breast cancer, left Code(s): C50.912 - MALIGNANT NEOPLASM OF UNSPECIFIED SITE OF LEFT FEMALE BREAST (2) Neutropenia Code(s): D70.9 - NEUTROPENIA, UNSPECIFIED Assessment/Plan Problem List - Problems (1) Asthma exacerbation Code(s): J45.901 - UNSPECIFIED ASTHMA WITH (ACUTE) EXACERBATION (2) Breast cancer, left Code(s): C50.912 - MALIGNANT NEOPLASM OF UNSPECIFIED SITE OF LEFT FEMALE BREAST Assessment/Plan Acute Asthma Exacerbation Breast Ca s/p recent chemotherapy Neutropenia - taper IV medrol - inhaled bronchodilators standing and PRN - O2 as needed - monitor peak flow - Levaquin - DVT prophylaxis - monitor cbc,wbc DR VILLARREAL
[2017-03-12] MEDS: ZOLPIDEM TARTRATE 5 MG TABLET PO PRN (22:23)
[2017-03-13] MEDS: ALBUTEROL SO4 2.5/IPRATROPIUM 0.5 INH SOL 3 ML VIAL.NEB. NEB SCH ×3 (00:05→11:43)
[2017-03-13 08:26] LABS: MCH 28.1 pg (25.7-33.7); MCHC 34.1 g/dl (32.0-36.0); MEAN CELL VOLUME 82.2 fl (80-96); MEAN PLT VOLUME 8.8 fl (7.5-11.1); PLATELET COUNT 135 K/MM3 (134-434); RDW 13.6 % (11.6-15.6)
[2017-03-13 08:40] LABS: WHITE BLOOD COUNT 1.1 K/mm3 (4.0-10.0)
[2017-03-13 08:42] LABS: ALBUMIN 3.5 g/dl (3.4-5.0); ANION GAP 10 (8-16); CALCIUM 8.5 mg/dL (8.5-10.1); CO2 28 mmol/L (21-32); GLUCOSE,RANDOM 113 mg/dL (74-106)
[2017-03-13 08:45] LABS: ALK PHOS 72 U/L (45-117); BILIRUBIN,TOTAL 0.7 mg/dL (0.2-1.0); CREATININE 0.5 mg/dL (0.55-1.02); SGOT/AST 14 U/L (15-37); SGPT/ALT 35 U/L (12-78); TOT PROT 6.5 g/dl (6.4-8.2)
[2017-03-13] MEDS ORDERED: PT OWN MED DRAWER 7, Y5N ONE (09:10)
[2017-03-13] MEDS: PANTOPRAZOLE 40 MG TABLET (FP) PO SCH (09:20)
[2017-03-13] MEDS: methylPREDNISolone NA SUCC 40 MG/1 ML VIAL IVPB SCH ×2 (09:21→22:27)
[2017-03-13] MEDS: BUDESONIDE/FORMETEROL FUMARATE 160/4.5 mcg INHALER IH SCH ×2 (09:23→22:28)
[2017-03-13] MEDS: LEVOFLOXACIN 500 MG IVPB 100 ML IVPB SCH (09:23)
[2017-03-13] MEDS: ENOXAPARIN NA (PORCINE) 40 MG/0.4 ML DISP.SYRIN SQ SCH (09:23)
--- NOTE | 2017-03-13 09:51 | PN ---
Progress Note, Physician Chief Complaint: ID No respiratory complaints Dysphagia but no thrush ([place]al[place]) - Current Medication List Current Medications: Active Medications Acetaminophen (Tylenol -) 650 mg PO Q6H PRN PRN Reason: FEVER OR PAIN Albuterol Sulfate (Ventolin 0.083% Nebulizer Soln -) 1 amp NEB Q4H PRN PRN Reason: SHORT OF BREATH/WHEEZING Albuterol/Ipratropium (Duoneb -) 1 amp NEB QIDR [facility] Last Admin: 03/13/17 06:58 Dose: Not Given Budesonide/Formoterol Fumarate (Symbicort 160/4.5mcg -) 2 puff IH BID [facility] Last Admin: 03/13/17 09:23 Dose: 2 puff Docusate Sodium (Colace -) 100 mg PO BID PRN PRN Reason: CONSTIPATION Last Admin: 03/10/17 21:22 Dose: 100 mg Enoxaparin Sodium (Lovenox -) 40 mg SQ DAILY [facility] Last Admin: 03/13/17 09:23 Dose: 40 mg Levofloxacin (Levaquin 500 Mg Premixed Ivpb -) 100 mls @ 100 mls/hr IVPB DAILY [facility] Last Admin: 03/13/17 09:23 Dose: 100 mls/hr Methylprednisolone Sodium Succinate (Solu-Medrol -) 15 mg IVPB BID [facility] Last Admin: 03/13/17 09:21 Dose: 15 mg Pantoprazole Sodium (Protonix -) 40 mg PO DAILY [facility] Last Admin: 03/13/17 09:20 Dose: 40 mg Senna (Senna -) 2 tab PO HS PRN PRN Reason: CONSTIPATION Last Admin: 03/10/17 21:22 Dose: 2 tab Zolpidem Tartrate (Ambien -) 5 mg PO HS PRN PRN Reason: INSOMNIA Last Admin: 03/12/17 22:23 Dose: 5 mg - Objective Vital Signs: Vital Signs Temperature 98.8 F 03/13/17 08:00 Pulse Rate 87 03/13/17 08:00 Respiratory Rate 18 03/13/17 08:00 Blood Pressure 132/85 03/13/17 08:00 O2 Sat by Pulse Oximetry (%) 96 03/12/17 11:00 Constitutional: Yes: Well Nourished, No Distress HENT: Yes: WNL, Atraumatic. No: Thrush Neck: Yes: WNL, Supple Cardiovascular: Yes: Regular Rate and Rhythm, S1, S2. No: Murmur Respiratory: Yes: WNL, Regular, CTA Bilaterally Gastrointestinal: Yes: WNL, Normal Bowel Sounds, Soft. No: Tenderness Labs: CBC, BMP 03/13/17 06:30 03/13/17 06:30 INR, PTT INR 0.99 (0.82-1.09) 03/08/17 09:10 Assessment/Plan Microbiology 03/10/17 01:10 Urine - Urine Clean Catch Urine Culture - Final 03/08/17 09:10 Blood - Peripheral Venous Blood Culture - Preliminary NO GROWTH OBTAINED AFTER 96 HOURS, INCUBATION TO CONTINUE FOR 1 DAYS. 03/08/17 09:10 Blood - Peripheral Venous Blood Culture - Preliminary NO GROWTH OBTAINED AFTER 96 HOURS, INCUBATION TO CONTINUE FOR 1 DAYS. Laboratory Tests 03/13/17 03/13/17 06:30 06:30 WBC 1.1 L* D Hgb 12.7 Hct 37.3 Plt Count 135 BUN 11 Creatinine 0.5 L Creat Clearance w eGFR > 60 Assessment Breast CA Neutropenia Asthma Plan Can stop antibiotics today Miriam MARADIAGA
[2017-03-13 10:02] LABS: PLATELET ESTIMATE ADEQUATE (NORMAL)
--- NOTE | 2017-03-13 10:55 | PN ---
Progress Note (short form) - Note Progress Note: Oncology follow-up note S: Patient with no complaints when visited today. Does not have any pain or SOB. Last Vital Signs Temp Pulse Resp BP Pulse Ox 98.8 F 89 18 132/85 94 L 03/13/17 08:00 03/13/17 09:35 03/13/17 08:00 03/13/17 08:00 03/13/17 09:35 Physical exam Cor: RSR, No murmurs, No gallops Lungs: scattered crackles at bases Abd: Soft, Normal bowel sounds, No organomegaly Ext:No significant edema Skin: No rashes, Integument intact CBC, BMP 03/13/17 06:30 03/13/17 06:30 Current Medications Generic Name Dose Route Start Last Admin Trade Name Freq PRN Reason Stop Dose Admin Acetaminophen 650 mg 03/08/17 14:13 Tylenol - PO Q6H PRN FEVER OR PAIN Albuterol Sulfate 1 amp 03/08/17 14:23 Ventolin 0.083% Nebulizer Soln - NEB Q4H PRN SHORT OF BREATH/WHEEZING Albuterol/Ipratropium 1 amp 03/08/17 18:00 03/13/17 06:58 Duoneb - NEB Not Given QIDR [facility] Budesonide/Formoterol Fumarate 2 puff 03/11/17 22:00 03/13/17 09:23 Symbicort 160/4.5mcg - IH 2 puff BID [facility] Administration Docusate Sodium 100 mg 03/09/17 15:33 03/10/17 21:22 Colace - PO 100 mg BID PRN Administration CONSTIPATION Enoxaparin Sodium 40 mg 03/11/17 16:00 03/13/17 09:23 Lovenox - SQ 40 mg DAILY [facility] Administration Methylprednisolone Sodium Succinate 15 mg 03/12/17 14:07 03/13/17 09:21 Solu-Medrol - IVPB 15 mg BID [facility] Administration Pantoprazole Sodium 40 mg 03/09/17 15:45 03/13/17 09:20 Protonix - PO 40 mg DAILY [facility] Administration Senna 2 tab 03/09/17 15:30 03/10/17 21:22 Senna - PO 2 tab HS PRN Administration CONSTIPATION Zolpidem Tartrate 5 mg 03/09/17 16:04 03/12/17 22:23 Ambien - PO 5 mg HS PRN Administration INSOMNIA A/P 56 y/o patient with h/o triple negative breast cancer, stage II, node+, getting neoadjuvant chemotherapy started AC -- C1 D9. s/p neulasta on 03/04 admitted with asthma exacerbation, she is well controlled on current meds Antibiotics stopped today, steroid taper Ramon ANC expected D7-10. Today--WBC is 1.1, counts are improving She can be discharged tomorrow if stable and counts continue to improve Steroid taper per pulmonary ambien prn protonix
--- NOTE | 2017-03-13 13:28 | PN ---
Progress Note, Physician History of Present Illness: pulmonary alert,no distress,noted to have more wheezing today,c/o throat discomfort when using nebs - Current Medication List Current Medications: Active Medications Acetaminophen (Tylenol -) 650 mg PO Q6H PRN PRN Reason: FEVER OR PAIN Albuterol Sulfate (Ventolin 0.083% Nebulizer Soln -) 1 amp NEB Q4H PRN PRN Reason: SHORT OF BREATH/WHEEZING Albuterol/Ipratropium (Duoneb -) 1 amp NEB QIDR [facility] Last Admin: 03/13/17 11:43 Dose: Not Given Budesonide/Formoterol Fumarate (Symbicort 160/4.5mcg -) 2 puff IH BID [facility] Last Admin: 03/13/17 09:23 Dose: 2 puff Docusate Sodium (Colace -) 100 mg PO BID PRN PRN Reason: CONSTIPATION Last Admin: 03/10/17 21:22 Dose: 100 mg Enoxaparin Sodium (Lovenox -) 40 mg SQ DAILY [facility] Last Admin: 03/13/17 09:23 Dose: 40 mg Methylprednisolone Sodium Succinate (Solu-Medrol -) 15 mg IVPB BID [facility] Last Admin: 03/13/17 09:21 Dose: 15 mg Pantoprazole Sodium (Protonix -) 40 mg PO DAILY [facility] Last Admin: 03/13/17 09:20 Dose: 40 mg Senna (Senna -) 2 tab PO HS PRN PRN Reason: CONSTIPATION Last Admin: 03/10/17 21:22 Dose: 2 tab Zolpidem Tartrate (Ambien -) 5 mg PO HS PRN PRN Reason: INSOMNIA Last Admin: 03/12/17 22:23 Dose: 5 mg - Objective Vital Signs: Vital Signs Temperature 98.8 F 03/13/17 08:00 Pulse Rate 89 03/13/17 09:35 Respiratory Rate 18 03/13/17 08:00 Blood Pressure 132/85 03/13/17 08:00 O2 Sat by Pulse Oximetry (%) 95 03/13/17 10:00 Constitutional: Yes: Well Nourished, Calm Eyes: Yes: WNL HENT: Yes: WNL Neck: Yes: WNL Cardiovascular: Yes: Regular Rate and Rhythm, S1, S2 Respiratory: Yes: Rales (bilateral crackles 1/3 up,increased bilateral wheezes) , Wheezes Gastrointestinal: Yes: Normal Bowel Sounds, Soft Extremities: Yes: WNL Edema: No Labs: CBC, BMP 03/13/17 06:30 03/13/17 06:30 INR, PTT INR 0.99 (0.82-1.09) 03/08/17 09:10 Problem List - Problems (1) Breast cancer, left Code(s): C50.912 - MALIGNANT NEOPLASM OF UNSPECIFIED SITE OF LEFT FEMALE BREAST (2) Neutropenia Code(s): D70.9 - NEUTROPENIA, UNSPECIFIED Assessment/Plan Problem List - Problems (1) Asthma exacerbation Code(s): J45.901 - UNSPECIFIED ASTHMA WITH (ACUTE) EXACERBATION (2) Breast cancer, left Code(s): C50.912 - MALIGNANT NEOPLASM OF UNSPECIFIED SITE OF LEFT FEMALE BREAST Assessment/Plan Acute Asthma Exacerbation Breast Ca s/p recent chemotherapy Neutropenia - IV medrol - inhaled bronchodilators standing and PRN - O2 as needed - monitor peak flow - DVT prophylaxis - monitor cbc,wbc DR VILLARREAL
[2017-03-13] MEDS ORDERED: ALBUTEROL SO4 6.7 GM HFA INHALER IH PRN (13:29)
[2017-03-13] MEDS: TIOTROPIUM BROMIDE 18 MCG/INH (DEVICE W/ 5 CAPSULES) IH SCH (16:21)
[2017-03-13] MEDS: ZOLPIDEM TARTRATE 5 MG TABLET PO PRN (22:28)
[2017-03-14 09:58] LABS: MCHC 34.1 g/dl (32.0-36.0); MEAN CELL VOLUME 82.1 fl (80-96); MEAN PLT VOLUME 8.1 fl (7.5-11.1); PLATELET COUNT 138 K/MM3 (134-434); RDW 13.5 % (11.6-15.6)
[2017-03-14 10:03] LABS: WHITE BLOOD COUNT 1.7 K/mm3 (4.0-10.0)
[2017-03-14] MEDS ORDERED: PT OWN MED DRAWER 7, Y5N ONE (10:19)
[2017-03-14] MEDS: ENOXAPARIN NA (PORCINE) 40 MG/0.4 ML DISP.SYRIN SQ SCH (10:23)
[2017-03-14] MEDS: PANTOPRAZOLE 40 MG TABLET (FP) PO SCH (10:23)
[2017-03-14] MEDS: methylPREDNISolone NA SUCC 40 MG/1 ML VIAL IVPB SCH (10:24)
[2017-03-14] MEDS: BUDESONIDE/FORMETEROL FUMARATE 160/4.5 mcg INHALER IH SCH (10:24)
[2017-03-14] MEDS: TIOTROPIUM BROMIDE 18 MCG/INH (DEVICE W/ 5 CAPSULES) IH SCH (10:25)
[2017-03-14 10:26] LABS: ALBUMIN 3.4 g/dl (3.4-5.0); ALK PHOS 79 U/L (45-117); ANION GAP 11 (8-16); BILIRUBIN,TOTAL 0.5 mg/dL (0.2-1.0); CALCIUM 8.5 mg/dL (8.5-10.1); CO2 29 mmol/L (21-32); CREATININE 0.7 mg/dL (0.55-1.02); GLUCOSE,RANDOM 160 mg/dL (74-106); SGOT/AST 17 U/L (15-37); SGPT/ALT 50 U/L (12-78); TOT PROT 6.7 g/dl (6.4-8.2)
[2017-03-14 14:19] LABS: PLATELET COMMENT2 NO CLOTTING DETECTED; PLATELET ESTIMATE SLT DECREASED (NORMAL)
[2017-03-14] MEDS ORDERED: LEVOFLOXACIN 500 MG TABLET (FP) PO ONE ×2 (14:45→15:45)
[2017-03-14 14:47] VITALS: BP 118/73; PULSE 75; TEMP 98.7
--- NOTE | 2017-03-14 14:50 | PN ---
Progress Note (short form) - Note Progress Note: Patient seen and examined Feels well Last Vital Signs Temp Pulse Resp BP Pulse Ox 98.7 F 75 18 118/73 94 L 03/14/17 14:46 03/14/17 14:46 03/14/17 09:00 03/14/17 14:46 03/14/17 11:25 Cor: RSR, No murmurs, No gallops Lungs: scattered crackles at bases Abd: Soft, Normal bowel sounds, No organomegaly Ext:No significant edema Skin: No rashes, Integument intact Abnormal Lab Results 03/14/17 03/14/17 09:40 09:40 WBC 1.7 L* D Neutrophils % 29.0 L D Monocytes % 16.0 H Band Neutrophils 12.0 H D Chloride 97 L Random Glucose 160 H D Active Medications Generic Name Dose Route Start Last Admin Trade Name Freq PRN Reason Stop Dose Admin Acetaminophen 650 mg 03/08/17 14:13 Tylenol - PO Q6H PRN FEVER OR PAIN Albuterol Sulfate 1 amp 03/08/17 14:23 Ventolin 0.083% Nebulizer Soln - NEB Q4H PRN SHORT OF BREATH/WHEEZING Albuterol Sulfate 2 puff 03/13/17 13:29 Ventolin Hfa Inhaler - IH Q4H PRN SHORT OF BREATH/WHEEZING Budesonide/Formoterol Fumarate 2 puff 03/11/17 22:00 03/14/17 10:24 Symbicort 160/4.5mcg - IH 2 puff BID [facility] Administration Docusate Sodium 100 mg 03/09/17 15:33 03/10/17 21:22 Colace - PO 100 mg BID PRN Administration CONSTIPATION Enoxaparin Sodium 40 mg 03/11/17 16:00 03/14/17 10:23 Lovenox - SQ 40 mg DAILY [facility] Administration Levofloxacin 500 mg 03/14/17 14:45 Levaquin - PO 03/14/17 14:46 ONCE ONE Methylprednisolone Sodium Succinate 15 mg 03/12/17 14:07 03/14/17 10:24 Solu-Medrol - IVPB 15 mg BID [facility] Administration Pantoprazole Sodium 40 mg 03/09/17 15:45 03/14/17 10:23 Protonix - PO 40 mg DAILY [facility] Administration Senna 2 tab 03/09/17 15:30 03/10/17 21:22 Senna - PO 2 tab HS PRN Administration CONSTIPATION Tiotropium [place] 1 puff 03/13/17 13:30 03/14/17 10:25 Spiriva - IH 1 puff DAILY [facility] Administration Zolpidem Tartrate 5 mg 03/09/17 16:04 03/13/17 22:28 Ambien - PO 5 mg HS PRN Administration INSOMNIA A/P 56 y/o patient with h/o triple negative breast cance, stge II, node+, getting neoadjuvant chemotherapy started AC -- C1 D12. s/p neulasta on 03/04 admitted with asthma exacerbation On levaquin/steroids Ramon ANC was 0.6 Today--1.7 WBC is increasing --- ANC today is > 500 ---- 697 Pulmonary f/u regarding steroid taper ID team to f/u , also regarding indeterminate PPD d/c planning
--- NOTE | 2017-03-14 15:24 | PN ---
Progress Note, Physician History of Present Illness: Feeling well Occasional cough No c/o dyspnea or chest pain Afebrile WBC 1.7 29N 12B ANC approx 700 - Current Medication List Current Medications: Active Medications Acetaminophen (Tylenol -) 650 mg PO Q6H PRN PRN Reason: FEVER OR PAIN Albuterol Sulfate (Ventolin 0.083% Nebulizer Soln -) 1 amp NEB Q4H PRN PRN Reason: SHORT OF BREATH/WHEEZING Albuterol Sulfate (Ventolin Hfa Inhaler -) 2 puff IH Q4H PRN PRN Reason: SHORT OF BREATH/WHEEZING Budesonide/Formoterol Fumarate (Symbicort 160/4.5mcg -) 2 puff IH BID [facility] Last Admin: 03/14/17 10:24 Dose: 2 puff Docusate Sodium (Colace -) 100 mg PO BID PRN PRN Reason: CONSTIPATION Last Admin: 03/10/17 21:22 Dose: 100 mg Enoxaparin Sodium (Lovenox -) 40 mg SQ DAILY [facility] Last Admin: 03/14/17 10:23 Dose: 40 mg Methylprednisolone Sodium Succinate (Solu-Medrol -) 15 mg IVPB BID [facility] Last Admin: 03/14/17 10:24 Dose: 15 mg Pantoprazole Sodium (Protonix -) 40 mg PO DAILY [facility] Last Admin: 03/14/17 10:23 Dose: 40 mg Senna (Senna -) 2 tab PO HS PRN PRN Reason: CONSTIPATION Last Admin: 03/10/17 21:22 Dose: 2 tab Tiotropium [place] (Spiriva -) 1 puff IH DAILY [facility] Last Admin: 03/14/17 10:25 Dose: 1 puff Zolpidem Tartrate (Ambien -) 5 mg PO HS PRN PRN Reason: INSOMNIA Last Admin: 03/13/17 22:28 Dose: 5 mg - Objective Vital Signs: Vital Signs Temperature 98.7 F 03/14/17 14:46 Pulse Rate 75 03/14/17 14:46 Respiratory Rate 18 03/14/17 09:00 Blood Pressure 118/73 03/14/17 14:46 O2 Sat by Pulse Oximetry (%) 94 L 03/14/17 11:25 Constitutional: Yes: No Distress Eyes: Yes: Conjunctiva Clear Cardiovascular: Yes: Regular Rate and Rhythm, S1, S2 Respiratory: Yes: CTA Bilaterally Gastrointestinal: Yes: Normal Bowel Sounds, Soft. No: Tenderness Labs: CBC, BMP 03/14/17 09:40 03/14/17 09:40 INR, PTT INR 0.99 (0.82-1.09) 03/08/17 09:10 Assessment/Plan Acute exacerbation Asthma- improved Chemotherapy-induced neutropenia Day #7 levaquin OK for discharge on po levaquin x 3d
--- NOTE | 2017-03-14 15:54 | PN ---
Progress Note (short form) - Note Progress Note: PULMONARY VSS ANICTERIC LEFT BASE CRACKLES S1S2 BS+ NO EDEMA LABS/MEDS/NOTES/IMAGING REVIEWED A/E BRONCHIAL ASTHMA NEWLY DIAGNOSED BREAST CA WILL CONTINUE ANTIBIOTICS AN OUTPATIENT Amari NOVOA MD
== END 2017-03-14 18:19 | disposition home or self-care (01) | DRG 203 ==
LOC: JER 07:53 → JERBED 10:45 → J6S 14:54 → OBSVTOIN 03-09 14:44 → J6S 03-12 11:38
PROVIDERS: ADMIT Specialist; ATTEND Specialist
DX: J45.901 Unspecified asthma with (acute) exacerbation (principal); K22.8 Other specified diseases of esophagus; C50.912 Malignant neoplasm of unspecified site of left female breast; Z87.891 Personal history of nicotine dependence; D70.2 Other drug-induced agranulocytosis; T45.1X5A Adverse effect of antineoplastic and immunosuppressive drugs, initial encounter
CPT/HCPCS: 36415; 71010-TC; 71020-TC; 80048; 80053; 81003; 81015; 82550; 82803; 83605; 83735; 84100; 84484; 85025; 85610; 85730; 86850; 86900; 86901; 87040; 87086; 90670; 93005; 93010; 94010; 94150; 94640; 99285-25; G0378

== ENCOUNTER 2017-03-24 07:53 | Day surgery (SDC) | payer OTHER, BC ==
[~2017-03-24 07:53] MED LIST changes: +CYCLOPHOSPHAMIDE IVPB ONE; +DEXAMETHASONE INJECTION 10 MG in SODIUM CHLORIDE 50 ML IVPB ONE; +DOXORUBICIN HCL IV ONE; +FOSAPREPITANT DIMEGLUMINE 150 MG in SODIUM CHLORIDE 150 ML IVPB ONE; +PALONOSETRON HCL 0.25 MG in SODIUM CHLORIDE 50 ML IVPB ONE; -PEGFILGRASTIM 6 MG/0.6 ML DISP.SYRIN SQ ONE; +SODIUM CHLORIDE 250 ML IV ONE; +SODIUM CHLORIDE 500 ML IV ONE; +SODIUM CHLORIDE IV ONE; +SODIUM CHLORIDE IVPB ONE
[2017-03-24] MEDS ORDERED: PALONOSETRON HCL 0.25 MG in SODIUM CHLORIDE 50 ML IVPB ONE (10:00)
[2017-03-24] MEDS ORDERED: SODIUM CHLORIDE 500 ML IV ONE (10:00)
[2017-03-24] MEDS ORDERED: DEXAMETHASONE INJECTION 10 MG in SODIUM CHLORIDE 50 ML IVPB ONE (10:00)
[2017-03-24] MEDS ORDERED: FOSAPREPITANT DIMEGLUMINE 150 MG in SODIUM CHLORIDE 150 ML IVPB ONE (10:00)
[2017-03-24] MEDS ORDERED: SODIUM CHLORIDE IV ONE (10:30)
[2017-03-24] MEDS ORDERED: DOXORUBICIN HCL IV ONE (10:30)
[2017-03-24 10:35] LABS: MCH 27.9 pg (25.7-33.7); MCHC 33.2 g/dl (32.0-36.0); MEAN CELL VOLUME 84.1 fl (80-96); MEAN PLT VOLUME 7.9 fl (7.5-11.1); PLATELET COUNT 296 K/MM3 (134-434); RDW 14.2 % (11.6-15.6); WHITE BLOOD COUNT 8.1 K/mm3 (4.0-10.0)
[2017-03-24] MEDS ORDERED: SODIUM CHLORIDE IVPB ONE (10:45)
[2017-03-24] MEDS ORDERED: CYCLOPHOSPHAMIDE IVPB ONE ×2 (10:45→12:30)
[2017-03-24 10:59] LABS: ALBUMIN 3.4 g/dl (3.4-5.0); ALK PHOS 83 U/L (45-117); ANION GAP 9 (8-16); BILIRUBIN,DIRECT 0.1 mg/dL (0.0-0.2); BILIRUBIN,TOTAL 0.3 mg/dL (0.2-1.0); CALCIUM 8.9 mg/dL (8.5-10.1); CO2 31 mmol/L (21-32); CREATININE 0.5 mg/dL (0.55-1.02); GLUCOSE,RANDOM 136 mg/dL (74-106); MAGNESIUM 2.1 mg/dL (1.8-2.4); SGOT/AST 16 U/L (15-37); SGPT/ALT 42 U/L (12-78); TOT PROT 6.2 g/dl (6.4-8.2)
[2017-03-24 11:14] LABS: METAMYELOCYTE 2 % (0-2); PLATELET ESTIMATE ADEQUATE (NORMAL)
[2017-03-24] MEDS ORDERED: SODIUM CHLORIDE 250 ML IV ONE (11:15)
[2017-03-24] MEDS ORDERED: PORTA CATH FLUSH 10 ML IVPUSH ONE (12:07)
[2017-03-24] MEDS ORDERED: [UNRECOGNIZED DRUG - OTHER] IVPB ONE (12:30)
[2017-03-24 16:43] VITALS: TEMP 98.8
[2017-03-24 18:00] VITALS: BP 134/75; PULSE 85
== END 2017-03-24 18:33 | disposition home or self-care (01) ==
LOC: JONCCHEMO 07:53 → J7W 11:43 → JONCCHEMO 18:33
PROVIDERS: ATTEND Internal Medicine Hematology & Oncology
PROC: 3E04305 Introduction of Other Antineoplastic into Central Vein, Percutaneous Approach (ICD-10-PCS; principal; 2017-03-24)
PROC: 3E043GC Introduction of Other Therapeutic Substance into Central Vein, Percutaneous Approach (ICD-10-PCS; 2017-03-24)
PROC: 3E0437Z Introduction of Electrolytic and Water Balance Substance into Central Vein, Percutaneous Approach (ICD-10-PCS; 2017-03-24)
DX: Z51.11 Encounter for antineoplastic chemotherapy (principal); C50.212 Malignant neoplasm of upper-inner quadrant of left female breast; J45.909 Unspecified asthma, uncomplicated; E66.9 Obesity, unspecified; Z68.41 Body mass index [BMI] 40.0-44.9, adult
CPT/HCPCS: 96361; 96367; 96375; 96413; 96417; J9000; J9070; 36415; 80053; 80076; 83735; 85025; J1453; J2469

== ENCOUNTER 2017-03-25 16:58 | Day surgery (SDC) | payer OTHER, BC ==
[~2017-03-25 16:58] MED LIST changes: -CYCLOPHOSPHAMIDE IVPB ONE; -DEXAMETHASONE INJECTION 10 MG in SODIUM CHLORIDE 50 ML IVPB ONE; -DOXORUBICIN HCL IV ONE; -FOSAPREPITANT DIMEGLUMINE 150 MG in SODIUM CHLORIDE 150 ML IVPB ONE; -PALONOSETRON HCL 0.25 MG in SODIUM CHLORIDE 50 ML IVPB ONE; +PEGFILGRASTIM 6 MG/0.6 ML DISP.SYRIN SQ ONE; -SODIUM CHLORIDE 250 ML IV ONE; -SODIUM CHLORIDE 500 ML IV ONE; -SODIUM CHLORIDE IV ONE; -SODIUM CHLORIDE IVPB ONE
[2017-03-25 17:16] VITALS: BP 124/66; PULSE 84; TEMP 98.6
== END 2017-03-25 17:57 | disposition home or self-care (01) ==
LOC: JONCNONCHE 16:58 → J7W 16:58 → JONCNONCHE 17:57
PROVIDERS: ATTEND Internal Medicine Hematology & Oncology
PROC: 3E013GC Introduction of Other Therapeutic Substance into Subcutaneous Tissue, Percutaneous Approach (ICD-10-PCS; principal; 2017-03-25)
DX: C50.919 Malignant neoplasm of unspecified site of unspecified female breast (principal)
CPT/HCPCS: 96372; 96401; J2505

== ENCOUNTER 2017-04-07 07:22 | Day surgery (SDC) | payer OTHER ==
[2017-04-07] MEDS ORDERED: SODIUM CHLORIDE 500 ML IV ONE (10:00)
[2017-04-07] MEDS ORDERED: PALONOSETRON HCL 0.25 MG in SODIUM CHLORIDE 50 ML IVPB ONE (10:00)
[2017-04-07] MEDS ORDERED: FOSAPREPITANT DIMEGLUMINE 150 MG in SODIUM CHLORIDE 150 ML IVPB ONE (10:00)
[2017-04-07] MEDS ORDERED: DEXAMETHASONE INJECTION 10 MG in SODIUM CHLORIDE 50 ML IVPB ONE (10:00)
[2017-04-07] MEDS ORDERED: SODIUM CHLORIDE IV ONE ×2 (10:30→14:30)
[2017-04-07] MEDS ORDERED: DOXORUBICIN HCL IV ONE ×2 (10:30→14:30)
[2017-04-07] MEDS ORDERED: CYCLOPHOSPHAMIDE IVPB ONE ×2 (10:45→15:00)
[2017-04-07] MEDS ORDERED: SODIUM CHLORIDE IVPB ONE ×2 (10:45→15:00)
[2017-04-07] MEDS ORDERED: SODIUM CHLORIDE 250 ML IV ONE (11:15)
[2017-04-07] MEDS ORDERED: PORTA CATH FLUSH 10 ML IVPUSH ONE (12:19)
[2017-04-07 17:17] VITALS: BP 144/89; PULSE 83; TEMP 98.2
== END 2017-04-07 18:29 | disposition home or self-care (01) ==
LOC: JONCCHEMO 07:22 → J7W 11:57 → JONCCHEMO 18:29
PROVIDERS: ATTEND Internal Medicine Hematology & Oncology
PROC: 3E04305 Introduction of Other Antineoplastic into Central Vein, Percutaneous Approach (ICD-10-PCS; principal; 2017-04-07)
PROC: 3E043GC Introduction of Other Therapeutic Substance into Central Vein, Percutaneous Approach (ICD-10-PCS; 2017-04-07)
PROC: 3E0437Z Introduction of Electrolytic and Water Balance Substance into Central Vein, Percutaneous Approach (ICD-10-PCS; 2017-04-07)
DX: Z51.11 Encounter for antineoplastic chemotherapy (principal); C50.919 Malignant neoplasm of unspecified site of unspecified female breast
CPT/HCPCS: 96367; 96375; 96413; 96417; J9000; J9070; J1453; J2469

== ENCOUNTER 2017-04-09 07:19 | Day surgery (SDC) | payer OTHER ==
[~2017-04-09 07:19] MED LIST changes: +SODIUM CHLORIDE 250 ML IV STA
[2017-04-09] MEDS ORDERED: amLODIPine BESYLATE 5 MG TABLET (FP) PO PRN (07:55)
[2017-04-09] MEDS ORDERED: PEGFILGRASTIM 6 MG/0.6 ML DISP.SYRIN SQ ONE (08:30)
[2017-04-09 09:08] VITALS: BP 133/78; PULSE 65; TEMP 98.1
== END 2017-04-09 10:42 | disposition home or self-care (01) ==
LOC: JONCNONCHE 07:19 → J7W 07:20 → JONCNONCHE 10:42
PROVIDERS: ATTEND Internal Medicine Hematology & Oncology
PROC: 3E013GC Introduction of Other Therapeutic Substance into Subcutaneous Tissue, Percutaneous Approach (ICD-10-PCS; principal; 2017-04-09)
DX: C50.919 Malignant neoplasm of unspecified site of unspecified female breast (principal)
CPT/HCPCS: 96372; 96401; J2505

== ENCOUNTER 2017-04-21 07:46 | Day surgery (SDC) | payer OTHER, BC ==
[2017-04-21] MEDS ORDERED: SODIUM CHLORIDE 250 ML IV ONE ×2 (08:00→10:30)
[2017-04-21] MEDS ORDERED: PALONOSETRON HCL 0.25 MG in SODIUM CHLORIDE 50 ML IVPB ONE (08:30)
[2017-04-21] MEDS ORDERED: FOSAPREPITANT DIMEGLUMINE 150 MG in SODIUM CHLORIDE 145 ML IVPB ONE (08:30)
[2017-04-21] MEDS ORDERED: DEXAMETHASONE INJECTION 10 MG in SODIUM CHLORIDE 50 ML IVPB ONE (08:30)
[2017-04-21] MEDS ORDERED: SODIUM CHLORIDE IV ONE (09:00)
[2017-04-21] MEDS ORDERED: DOXORUBICIN HCL IV ONE (09:00)
[2017-04-21] MEDS ORDERED: CYCLOPHOSPHAMIDE IVPB ONE (10:00)
[2017-04-21] MEDS ORDERED: SODIUM CHLORIDE IVPB ONE (10:00)
[2017-04-21 10:11] VITALS: BP 120/84; PULSE 98; TEMP 98.5
== END 2017-04-21 19:54 | disposition home or self-care (01) ==
LOC: JONCCHEMO 07:46 → J7W 11:28 → JONCCHEMO 19:54
PROVIDERS: ATTEND Internal Medicine Hematology & Oncology
DX: Z51.11 Encounter for antineoplastic chemotherapy (principal); C50.919 Malignant neoplasm of unspecified site of unspecified female breast
CPT/HCPCS: 96361; 96367; 96375; 96413; 96417; J1453; J2469; J9070

== ENCOUNTER 2017-04-22 16:21 | Day surgery (SDC) | payer OTHER ==
[~2017-04-22 16:21] MED LIST changes: -SODIUM CHLORIDE 250 ML IV STA
[2017-04-22 17:15] VITALS: BP 140/85; PULSE 99; TEMP 98.9
== END 2017-04-22 18:55 | disposition home or self-care (01) ==
LOC: JONCNONCHE 16:21 → J7W 16:23 → JONCNONCHE 18:55
PROVIDERS: ATTEND Internal Medicine Hematology & Oncology
PROC: 3E013GC Introduction of Other Therapeutic Substance into Subcutaneous Tissue, Percutaneous Approach (ICD-10-PCS; principal; 2017-04-22)
DX: C50.919 Malignant neoplasm of unspecified site of unspecified female breast (principal)
CPT/HCPCS: 96372; 96401; J2505

== ENCOUNTER 2017-05-05 07:43 | Day surgery (SDC) | payer OTHER, BC ==
[2017-05-05] MEDS ORDERED: DIPHENHYDRAMINE IVPB ONE (10:00)
[2017-05-05] MEDS ORDERED: ONDANSETRON IVPB ONE (10:00)
[2017-05-05] MEDS ORDERED: RANITIDINE IVPB ONE (10:00)
[2017-05-05] MEDS ORDERED: [UNRECOGNIZED DRUG - OTHER] IVPB ONE (10:00)
[2017-05-05] MEDS ORDERED: SODIUM CHLORIDE 500 ML IV ONE (10:00)
[2017-05-05] MEDS ORDERED: DEXAMETHASONE INJECTION 20 MG in SODIUM CHLORIDE 50 ML IVPB ONE (10:00)
[2017-05-05 10:23] LABS: BASOPHIL 0.5 % (0-2.0); EOSINOPHIL 0.1 % (0-4.5); MCH 28.7 pg (25.7-33.7); MEAN CELL VOLUME 84.6 fl (80-96); MEAN PLT VOLUME 8.8 fl (7.5-11.1); NEUTROPHILS 65.1 % (42.8-82.8); PLATELET COUNT 210 K/MM3 (134-434); RDW 17.4 % (11.6-15.6); WHITE BLOOD COUNT 4.5 K/mm3 (4.0-10.0)
[2017-05-05] MEDS ORDERED: SODIUM CHLORIDE IVPB ONE (10:30)
[2017-05-05] MEDS ORDERED: PACLITAXEL IVPB ONE (10:30)
[2017-05-05 10:51] LABS: ALBUMIN 3.3 g/dl (3.4-5.0); ALK PHOS 107 U/L (45-117); ANION GAP 11 (8-16); BILIRUBIN,DIRECT 0.1 mg/dL (0.0-0.2); BILIRUBIN,TOTAL 0.4 mg/dL (0.2-1.0); CALCIUM 8.7 mg/dL (8.5-10.1); CO2 26 mmol/L (21-32); CREATININE 0.5 mg/dL (0.55-1.02); GLUCOSE,RANDOM 170 mg/dL (74-106); SGOT/AST 8 U/L (15-37); SGPT/ALT 22 U/L (12-78); TOT PROT 6.3 g/dl (6.4-8.2)
[2017-05-05] MEDS ORDERED: BACITRACIN 15 GM TUBE TOPICAL OINTMENT TP SCH (12:45)
--- NOTE | 2017-05-05 13:26 | PN ---
Progress Note (short form) - Note Progress Note: ID Full note dictated and discussed Selected Entries 05/05/17 10:14 Temperature 98.1 F Pulse Rate 108 H Respiratory 18 Rate Blood Pressure 156/80 Pilonodal sinus clear anal fistula by history ALso hemmorroid no perirectal cellulitis Laboratory Tests 05/05/17 10:00 WBC 4.5 Hgb 9.6 L D Hct 28.4 L Plt Count 210 D No evidence perirectal infection Miriam MARADIAGA Problem List - Problems (1) Breast cancer, left Code(s): C50.912 - MALIGNANT NEOPLASM OF UNSPECIFIED SITE OF LEFT FEMALE BREAST (2) Anal fistula Code(s): K60.3 - ANAL FISTULA
--- NOTE | 2017-05-05 13:59 | CONS ---
DATE OF CONSULTATION: DATE OF DICTATION: 05/05/2017 HISTORY OF PRESENT ILLNESS: This is a 56-year-old female whom I am asked to see at the request of Dr. Jing Billingsley for evaluation of possible perirectal infection. Patient has a known history of breast cancer and has been treated currently with chemotherapy in anticipation ultimately of having a mastectomy. She has a long history of a pilonidal cyst which underwent surgical repair years ago. She has also been followed for some time for an anal fistula by Dr. Correa but no history of inflammatory bowel disease, diarrhea, or other systemic complaints. Most recently, in the last week or 2 she noted that she had for the 1st time a hemorrhoid which she has been treating with conservative treatment with topical corticosteroids and warm compresses. She is currently getting chemotherapy and I am asked to see her to make sure there is no active rectal/perirectal infection. She denies any fever or chills and is otherwise in her usual state of good health. PAST MEDICAL HISTORY: Includes breast cancer. Denies history of diabetes. CURRENT MEDICATIONS: Include dexamethasone. ALLERGIES: None known. SOCIAL HISTORY: . Recent travel to [place] earlier in spring. Nonsmoker. No alcohol, substance abuse. FAMILY HISTORY: Noncontributory. REVIEW OF SYSTEMS: All systems reviewed and noncontributory. PHYSICAL EXAMINATION: General: She was a pleasant woman in no acute distress. Vital Signs: Temperature 98.1, pulse 108, blood pressure 156/80, respiration 18. Neck: Supple. Chest: Symmetrical with a Port-A-Cath. Lungs: Clear. Heart: S1, S2, regular rhythm. No murmur. Abdomen: Soft, nontender. No organomegaly. Rectal: Reveals evidence of hemorrhoids, perirectal fistula with no perirectal cellulitis or abscess evident. Pilonidal cyst sinus evident in the lower spine. LABORATORY DATA: White count 4.5, hemoglobin 9.6, platelets 210,000. BUN 9, creatinine 0.5. ASSESSMENT: No evidence of active perirectal infection despite history of chronic anal fistula and recent hemorrhoids. RECOMMENDATIONS: As discussed with Dr. Billingsley, the patient requires no further intervention at this time and no indication for antibiotics at the current time. TIFFANY MACIAS M.D. [id number]
[2017-05-05 18:15] VITALS: PULSE 93
[2017-05-05 18:17] VITALS: BP 118/72; TEMP 98.8
== END 2017-05-05 18:41 | disposition home or self-care (01) ==
LOC: JONCCHEMO 07:43 → J7W 11:00 → JONCCHEMO 18:41
PROVIDERS: ATTEND Internal Medicine Hematology & Oncology
PROC: 3E04305 Introduction of Other Antineoplastic into Central Vein, Percutaneous Approach (ICD-10-PCS; principal; 2017-05-05)
PROC: 3E043GC Introduction of Other Therapeutic Substance into Central Vein, Percutaneous Approach (ICD-10-PCS; 2017-05-05)
PROC: 3E0437Z Introduction of Electrolytic and Water Balance Substance into Central Vein, Percutaneous Approach (ICD-10-PCS; 2017-05-05)
DX: Z51.11 Encounter for antineoplastic chemotherapy (principal); C50.919 Malignant neoplasm of unspecified site of unspecified female breast; E66.9 Obesity, unspecified; Z68.41 Body mass index [BMI] 40.0-44.9, adult
CPT/HCPCS: 96367; 96375; 96413; 96415; J9267; 36415; 80053; 80076; 83735; 85025

== ENCOUNTER 2017-05-12 08:00 | Inpatient (IN) | payer OTHER, BC ==
[2017-05-12] MEDS ORDERED: SODIUM CHLORIDE 500 ML IV ONE (10:00)
[2017-05-12] MEDS ORDERED: RANITIDINE IVPB ONE (10:00)
[2017-05-12] MEDS ORDERED: ONDANSETRON IVPB ONE (10:00)
[2017-05-12] MEDS ORDERED: DEXAMETHASONE INJECTION 20 MG in SODIUM CHLORIDE 50 ML IVPB ONE (10:00)
[2017-05-12] MEDS ORDERED: DIPHENHYDRAMINE IVPB ONE (10:00)
[2017-05-12] MEDS ORDERED: [UNRECOGNIZED DRUG - OTHER] IVPB ONE (10:00)
[2017-05-12] MEDS ORDERED: PACLITAXEL IVPB ONE (10:30)
[2017-05-12] MEDS ORDERED: SODIUM CHLORIDE IVPB ONE (10:30)
[2017-05-12 10:44] LABS: MCH 28.9 pg (25.7-33.7); MCHC 34.2 g/dl (32.0-36.0); MEAN CELL VOLUME 84.5 fl (80-96); MEAN PLT VOLUME 8.3 fl (7.5-11.1); PLATELET COUNT 349 K/MM3 (134-434); RDW 18.4 % (11.6-15.6)
[2017-05-12 10:55] LABS: URINE APPEARANCE CLEAR; URINE BILIRUBIN NEGATIVE (NEGATIVE); URINE BLOOD NEGATIVE (NEGATIVE); URINE COLOR COLORLESS; URINE GLUCOSE (UA) NEGATIVE (NEGATIVE); URINE KETONE NEGATIVE (NEGATIVE); URINE LEUK ESTERASE NEGATIVE (NEGATIVE); URINE NITRITE NEGATIVE (NEGATIVE); URINE PROTEIN NEGATIVE (NEGATIVE); URINE UROBILINOGEN NEGATIVE mg/dL (0.2-1.0)
[2017-05-12 11:12] LABS: ALBUMIN 3.4 g/dl (3.4-5.0); ALK PHOS 84 U/L (45-117); ANION GAP 10 (8-16); BILIRUBIN,DIRECT 0.2 mg/dL (0.0-0.2); BILIRUBIN,TOTAL 0.5 mg/dL (0.2-1.0); CALCIUM 8.7 mg/dL (8.5-10.1); CO2 26 mmol/L (21-32); CREATININE 0.7 mg/dL (0.55-1.02); GLUCOSE,RANDOM 190 mg/dL (74-106); MAGNESIUM 1.8 mg/dL (1.8-2.4); SGOT/AST 15 U/L (15-37); SGPT/ALT 27 U/L (12-78); TOT PROT 6.3 g/dl (6.4-8.2)
[2017-05-12] MEDS ORDERED: SODIUM CHLORIDE 1,000 ML IV SCH ×2 (12:00→14:28)
[2017-05-12] MEDS ORDERED: TBO-FILGRASTIM 480 MCG/0.8 ML DISP.SYRIN SQ ONE (12:30)
[2017-05-12] MEDS ORDERED: PIPERACILLIN/TAZOB 4.5 GM/100 ML PRE-DOCKED IVPB ONE (12:30)
[2017-05-12] MEDS ORDERED: PIPERACILLIN/TAZOB 4.5 GM 4.5 GM in DEXTROSE 5%-WATER 100 ML IVPB ONE (12:50)
[2017-05-12] MEDS ORDERED: PIPERACILLIN/TAZOBACTAM 4.5 GM VIAL IVPB ONE ×2 (13:01→17:53)
[2017-05-12] MEDS ORDERED: DEXTROSE 5%-WATER 100 ML IVPB ONE ×2 (13:02→17:53)
--- NOTE | 2017-05-12 13:58 | CONSULT ---
Consultation: REQUESTING PROVIDER: CONSULT REQUEST: ID consult HISTORY OF PRESENT ILLNESS: Patient is 56 yo F with left sided breast cancer ( diagnosed in January), was sent by her oncologist prior to receiving her 3rd dose of chemotherapy at [facility]. Her lab work revealed a white blood cell count of 2. She complains of urinary urgency and increased urinary frequency since yesterday without a burning sensation. She had one episode of dark colored urine last night with some chills. She denies dysuria, fever, abdominal pain, diarrhea, headache, n/v, and weight loss. She traveled to [place] this past November. PMH: -Asthma -Obesity -Achalasia -Left sided Breast Cancer Allergies: NKDA Meds: Symbicort BID, Protonix Surgeries: Pilonidal cyst excision, anal fistula repair, hysterectomy, oopherectomy FH: Father- colon cancer Maternal grandmother breast cancer Maternal grandfather- colon cancer SH: denies smoking (quit 15 years ago), denies drinking REVIEW OF SYSTEMS: CONSTITUTIONAL: chills Absent: fever, diaphoresis, generalized weakness, malaise, loss of appetite, weight change HEENT: Absent: rhinorrhea, nasal congestion, throat pain, throat swelling, difficulty swallowing, mouth swelling, ear pain, eye pain, visual changes CARDIOVASCULAR: Absent: chest pain, syncope, palpitations, irregular heart rate, lightheadedness , peripheral edema RESPIRATORY: cough Absent: shortness of breath, dyspnea with exertion, orthopnea, wheezing, stridor , hemoptysis GASTROINTESTINAL: Absent: abdominal pain, abdominal distension, nausea, vomiting, diarrhea, constipation, melena, hematochezia GENITOURINARY: urgency, hesitancy, frequency Absent: dysuria, hematuria, flank pain, genital pain MUSCULOSKELETAL: Absent: myalgia, arthralgia, joint swelling, back pain, neck pain SKIN: Absent: rash, itching, pallor HEMATOLOGIC/IMMUNOLOGIC: Absent: easy bleeding, easy bruising, lymphadenopathy, frequent infections ENDOCRINE: Absent: unexplained weight gain, unexplained weight loss, heat intolerance, cold intolerance NEUROLOGIC: Absent: headache, focal weakness or paresthesias, dizziness, unsteady gait, seizure, mental status changes, bladder or bowel incontinence PSYCHIATRIC: Absent: anxiety, depression, suicidal or homicidal ideation, hallucinations. PHYSICAL EXAMINATION Vital Signs - 24 hr 05/12/17 10:12 Temperature 99.1 F Pulse Rate 101 H Respiratory 16 Rate Blood Pressure 130/72 GENERAL: Awake, alert, and fully oriented, in no acute distress. HEAD: Normal with no signs of trauma. EYES: Pupils equal, round and reactive to light, extraocular movements intact, sclera anicteric, conjunctiva clear. No lid lag. EARS, NOSE, THROAT: Ears normal, nares patent, oropharynx clear without exudates. Moist mucous membranes. NECK: Normal range of motion, supple without lymphadenopathy, JVD, or masses. LUNGS: Breath sounds equal, clear to auscultation bilaterally. No wheezes, and no crackles. No accessory muscle use. HEART: Regular rate and rhythm, normal S1 and S2 without murmur, rub or gallop. ABDOMEN: Soft, nontender, not distended UPPER EXTREMITIES: 2+ pulses, warm, well-perfused. No cyanosis. No clubbing. Cap refill <2 seconds. No peripheral edema. LOWER EXTREMITIES: 2+ pulses, warm, well-perfused. No calf tenderness. B/L Pitting Edema. PSYCHIATRIC: Cooperative. Good eye contact. Appropriate mood and affect. SKIN: Warm, dry, normal turgor, no rashes or lesions noted. Laboratory Results - last 24 hr 05/12/17 05/12/17 05/12/17 10:15 10:15 10:15 WBC 2.0 L D RBC 3.12 L Hgb 9.0 L Hct 26.4 L MCV 84.5 MCH 28.9 MCHC 34.2 RDW 18.4 H Plt Count 349 D MPV 8.3 Neutrophils % Y Lymphocytes % Y Sodium 138 Potassium 3.5 Chloride 102 Carbon Dioxide 26 Anion Gap 10 BUN 5 L D Creatinine 0.7 D Creat Clearance w eGFR > 60 Random Glucose 190 H Calcium 8.7 Magnesium 1.8 Total Bilirubin 0.5 D Direct Bilirubin 0.2 D AST 15 D ALT 27 D Alkaline Phosphatase 84 D Total Protein 6.3 L Albumin 3.4 Urine Color Colorless Urine Appearance Clear Urine pH 6.0 D Urine Protein Negative Urine Glucose (UA) Negative Urine Ketones Negative Urine Blood Negative Urine Nitrite Negative Urine Bilirubin Negative Urine Urobilinogen Negative Ur Leukocyte Esterase Negative Active Medications Generic Name Dose Route Start Last Admin Trade Name Freq PRN Reason Stop Dose Admin Sodium Chloride 1,000 mls @ 75 mls/hr 05/12/17 12:00 05/12/17 13:00 Normal Saline - IV 75 mls/hr ASDIR CIPRIANO Administration Piperacillin Sod/Tazobactam Sod 4.5 gm 05/12/17 18:00 Zosyn 4.5gm Ivpb (Pre-Docked) IVPB Q8H-IV CIPRIANO ASSESSMENT/PLAN: Patient is 56 yo F with left sided breast cancer was sent by her oncologist and admitted because of a white blood cell count of 2, low-grade fever, urinary urgency and increased urinary frequency. 1) Neutropenia/Low Grade fever -suspected UTI -pending blood and urine cultures -Continue IV Antibiotics: Zosyn 4.5gm Q8 Dispo: We will continue to follow the patient. Thank you for this consultative opportunity. Visit type - Emergency Visit Emergency Visit: No - New Patient This patient is new to me today: Yes Date on this admission: 05/12/17 - Critical Care Critical Care patient: No
--- NOTE | 2017-05-12 14:26 | HP ---
Admitting History and Physical - Primary Care Physician PCP: Quentin Gibson - Admission Chief Complaint: fever History of Present Illness: HPI: This is a 56 year old female with pmhx asthma (never intubated) breast ca diagnosed 01/2017 s/p 1st chemotherapy session on Mar 03, completed 4 weeks before taxol. Today she was due for her third round of chemo at 3pm, she went in for labs to Dr. Ch's office and was found to have wbc of 2.0. She was sent to hospital. The patient reported that last night she had an episode of dark colored urine, dysuria, frequency, and chills. She felt a bladder infection was coming and began to increase her PO intake. Currently, she denies symptoms, chest pain, sob, fever, chills. Left Breast cancer, with excision biopsy from Left axillary lymph node. History Source: Patient Limitations to Obtaining History: No Limitations - Past Medical History Pulmonary: Yes: Asthma Gastrointestinal: Yes: Other (achalasia) - Past Surgical History Past Surgical History: Yes: Hysterectomy - Smoking History Smoking history: Former smoker Have you smoked in the past 12 months: No If you are a former smoker, when did you quit?: 15 YEARS AGO - Alcohol/Substance Use Hx Alcohol Use: No History of Substance Use: reports: None - Social History Usual Living Arrangement: Yes: With Spouse ADL: Independent History of Recent Travel: No Home Medications - Allergies Allergies/Adverse Reactions: Allergies Allergy/AdvReac Type Severity Reaction Status Date / Time No Known Allergies Allergy Verified 03/08/17 07:58 - Home Medications Home Medications: Ambulatory Orders Budesonide/Formeterol Fumarate [SYMBICORT 80/4.5mcg -] 1 inh PO DAILY 12/21/16 Loratadine [Claritin] 10 mg PO DAILY 03/01/17 Albuterol Sulfate [Proventil HFA Inhaler -] 1 - 2 inh PO TID PRN 03/03/17 Albuterol 0.083% Nebulizer Kacey [Ventolin 0.083% Nebulizer Soln -] 1 amp NEB Q4H PRN #0 amp 03/14/17 Albuterol 2.5/Ipratropium 0.5 [Duoneb -] 1 amp NEB QIDR amp 03/14/17 Albuterol Sulfate Inhaler - [Ventolin HFA Inhaler -] 2 puff IH Q4H PRN #0 inhaler 03/14/17 Budesonide/Formeterol Fumarate [SYMBICORT 160/4.5mcg -] 2 puff IH BID inhaler 03/14/17 Levofloxacin 500 mg Ivpb [Levaquin 500 mg Premixed Ivpb -] 100 ml IVPB DAILY bag 03/14/17 Sennosides [Senna -] 2 tab PO HS PRN #0 tablet 03/14/17 Tiotropium [place] [Spiriva] 1 puff IH DAILY inh 03/14/17 Compazine 04/09/17 Family Disease History - Family Disease History Family Disease History: CA: Grandparent (breast cancer 60s), Father (colon cancer at 86) Review of Systems - Review of Systems Constitutional: reports: Chills Eyes: reports: No Symptoms HENT: reports: No Symptoms Neck: reports: No Symptoms Cardiovascular: reports: No Symptoms Respiratory: reports: No Symptoms Gastrointestinal: reports: No Symptoms Genitourinary: reports: Dysuria, Frequency Musculoskeletal: reports: No Symptoms Integumentary: reports: No Symptoms Neurological: reports: No Symptoms Endocrine: reports: No Symptoms Hematology/Lymphatic: reports: No Symptoms Psychiatric: reports: No Symptoms Physical Examination Vital Signs: Vital Signs Temperature 99.1 F 05/12/17 10:12 Pulse Rate 101 H 05/12/17 10:12 Respiratory Rate 16 05/12/17 10:12 Blood Pressure 130/72 05/12/17 10:12 O2 Sat by Pulse Oximetry (%) Constitutional: Yes: Well Nourished Eyes: Yes: WNL HENT: Yes: WNL Neck: Yes: WNL Cardiovascular: Yes: Regular Rate and Rhythm, S1, S2, Other (RCW chemo port- CDI ) Respiratory: Yes: Regular, CTA Bilaterally Gastrointestinal: Yes: Normal Bowel Sounds, Soft Renal/: Yes: WNL Labs: CBC, BMP 05/12/17 10:15 05/12/17 10:15 Problem List - Problems (1) Breast cancer, left Code(s): C50.912 - MALIGNANT NEOPLASM OF UNSPECIFIED SITE OF LEFT FEMALE BREAST (2) Neutropenia Code(s): D70.9 - NEUTROPENIA, UNSPECIFIED Assessment/Plan Assessment: 56 year old female with asthma, left breast CA s/p chemo admitted with neutropenic fever. Plan: 1. Sepsis d/t likely UTI as source - Urine and blood cx pending - Stat lactic acid - Increase fluids 100cc/hr - Abx per ID, given x1 dose zosyn, possible cefepime - d/w ID 2. Neutropenic fever - Due to breast CA s/p chemo - X1 dose granix - Oncology seeing 3. Asthma - Symbicort HS - Duonebs prn 4. L breast CA - Chemo on hold 5. DVTppx - Lovenox 40mg daily Visit type - Emergency Visit Emergency Visit: Yes ED Registration Date: 05/12/17 Care time: The patient presented to the Emergency Department on the above date and was hospitalized for further evaluation of their emergent condition. - New Patient This patient is new to me today: Yes Date on this admission: 05/12/17 - Critical Care Critical Care patient: No
[2017-05-12] MEDS ORDERED: ALBUTEROL SO4 2.5/IPRATROPIUM 0.5 INH SOL 3 ML VIAL.NEB. NEB PRN (14:33)
[2017-05-12 14:39] LABS: BASOPHIL (MANUAL) 2 % (0-2.0); NUCLEATED RED BLOOD CELL 1 % (0-0); PLATELET ESTIMATE ADEQUATE
[2017-05-12] MEDS ORDERED: ACETAMINOPHEN 325 MG TABLET (FP) PO PRN (15:42)
[2017-05-12] MEDS ORDERED: ALBUTEROL SO4 6.7 GM HFA INHALER IH PRN ×2 (16:16→16:49)
[2017-05-12] MEDS ORDERED: VANCOMYCIN 1 GRAM (PRE-DOCKED) 250 ML IVPB ONE (16:35)
[2017-05-12] MEDS: ACETAMINOPHEN 325 MG TABLET (FP) PO PRN (16:43)
[2017-05-12] MEDS ORDERED: PIPERACILLIN/TAZOB 4.5 GM/100 ML PRE-DOCKED IVPB SCH (18:00)
[2017-05-12] MEDS: PIPERACILLIN/TAZOB 4.5 GM 4.5 GM in DEXTROSE 5%-WATER 100 ML IVPB SCH (18:24)
--- NOTE | 2017-05-12 19:08 | PN ---
Teaching Attending Note Name of Resident: Johnny Reich ATTENDING PHYSICIAN STATEMENT I saw and evaluated the patient. I reviewed the resident's note and discussed the case with the resident. I agree with the resident's findings and plan as documented. SUBJECTIVE: admitted with urinary urgency, chills last night, and low grade temp of 99 no other complaints recent chemo wbc 2000, diff pending OBJECTIVE: Vital Signs Period Temp Pulse Resp BP Sys/Lerner Pulse Ox Last 24 Hr 99.1 F 101 16 130/72 no thrush no rash port site nontender, no erythema cor-rrr lungs clear abd soft,nt no suprapubic or cvat perirectal area, small hemorrhoid,no erythema or tenderness ext no edema wbc 2000 diff pending ASSESSMENT AND PLAN: neutropenia s/p chemo low grade temp ?UTI check cxray cultures zosyn ordered d/w dr palmer
[2017-05-12 20:15] VITALS: BMI 40.4
[2017-05-12] MEDS: SODIUM CHLORIDE 1,000 ML IV SCH (22:19)
[2017-05-12] MEDS: BUDESONIDE/FORMETEROL FUMARATE 160/4.5 mcg INHALER IH SCH (22:19)
[2017-05-13] MEDS ORDERED: PIPERACILLIN/TAZOBACTAM 4.5 GM VIAL IVPB ONE (00:50)
[2017-05-13] MEDS: ACETAMINOPHEN 325 MG TABLET (FP) PO PRN ×3 (00:55→18:56)
[2017-05-13] MEDS: PIPERACILLIN/TAZOB 4.5 GM 4.5 GM in DEXTROSE 5%-WATER 100 ML IVPB SCH (01:02)
[2017-05-13] MEDS: MEROPENEM 1 GM in DEXTROSE 5%-WATER 100 ML IVPB SCH ×3 (04:43→17:27)
[2017-05-13] MEDS: VANCOMYCIN 1,250 MG in DEXTROSE 5%-WATER - 250 ML IVPB SCH ×2 (06:03→17:30)
[2017-05-13 07:47] LABS: MCH 29.2 pg (25.7-33.7); MCHC 34.7 g/dl (32.0-36.0); MEAN CELL VOLUME 84.2 fl (80-96); MEAN PLT VOLUME 8.3 fl (7.5-11.1); PLATELET COUNT 246 K/MM3 (134-434); RDW 18.8 % (11.6-15.6); WHITE BLOOD COUNT 2.4 K/mm3 (4.0-10.0)
[2017-05-13 08:12] LABS: ALBUMIN 2.9 g/dl (3.4-5.0); ANION GAP 11 (8-16); CO2 26 mmol/L (21-32); CREATININE 0.5 mg/dL (0.55-1.02); GLUCOSE,RANDOM 140 mg/dL (74-106); MAGNESIUM 1.9 mg/dL (1.8-2.4); PHOSPHOROUS 3.4 mg/dL (2.5-4.9); SGOT/AST 9 U/L (15-37); SGPT/ALT 21 U/L (12-78)
[2017-05-13 08:14] LABS: ALK PHOS 68 U/L (45-117); BILIRUBIN,TOTAL 0.6 mg/dL (0.2-1.0); TOT PROT 5.5 g/dl (6.4-8.2)
[2017-05-13] MEDS ORDERED: SODIUM CHLORIDE 500 ML IV STA (09:47)
[2017-05-13] MEDS ORDERED: PT OWN MED DRAWER 7, Y5N ONE (10:08)
[2017-05-13] MEDS: ENOXAPARIN NA (PORCINE) 40 MG/0.4 ML DISP.SYRIN SQ SCH (10:10)
[2017-05-13] MEDS: PANTOPRAZOLE 40 MG TABLET (FP) PO SCH (10:10)
[2017-05-13] MEDS: BUDESONIDE/FORMETEROL FUMARATE 160/4.5 mcg INHALER IH SCH (10:10)
--- NOTE | 2017-05-13 10:29 | PN ---
Physical Exam: SUBJECTIVE: Patient seen and examined. Last night she had a temp of 101.4. She has no new complaints today. She denies cough, diarrhea, abdominal pain, dizziness and SOB. OBJECTIVE: Vital Signs Period Temp Pulse Resp BP Sys/Lerner Pulse Ox Last 24 Hr 99.2 F-101.4 F 93-118 18-20 139-152/79-87 98 GENERAL: The patient is awake, alert, and fully oriented, in no acute distress. HEAD: Normal with no signs of trauma. EYES: PERRL, extraocular movements intact, sclera anicteric, conjunctiva clear. No ptosis. ENT: Ears normal, nares patent, oropharynx clear without exudates, moist mucous membranes. NECK: supple. LUNGS: Breath sounds equal, clear to auscultation bilaterally, no wheezes, no crackles, no accessory muscle use. Heart: Regular rate and rhythm, S1, S2 without murmur, rub or gallop. ABDOMEN: Soft, nontender, nondistended, normoactive bowel sounds, no guarding, no rebound, no hepatosplenomegaly, no masses. EXTREMITIES: 2+ pulses, warm, well-perfused, B/L LE peripheral edema. PSYCH: Normal mood, normal affect. SKIN: Warm, dry, normal turgor, no rashes or lesions noted Laboratory Results - last 24 hr 05/12/17 05/12/17 05/12/17 10:15 10:15 10:15 WBC 2.0 L D RBC 3.12 L Hgb 9.0 L Hct 26.4 L MCV 84.5 MCH 28.9 MCHC 34.2 RDW 18.4 H Plt Count 349 D MPV 8.3 Neutrophils % Y Neutrophils % (Manual) 3 L Band Neuts % (Manual) No Result Required. Lymphocytes % Y Lymphocytes % (Manual) 40 Monocytes % (Manual) 50 H* Eosinophils % (Manual) 1 Basophils % (Manual) 2 Nucleated RBC % 1 H Platelet Estimate Adequate Sodium 138 Potassium 3.5 Chloride 102 Carbon Dioxide 26 Anion Gap 10 BUN 5 L D Creatinine 0.7 D Creat Clearance w eGFR > 60 Random Glucose 190 H Lactic Acid Calcium 8.7 Phosphorus Magnesium 1.8 Total Bilirubin 0.5 D Direct Bilirubin 0.2 D AST 15 D ALT 27 D Alkaline Phosphatase 84 D Total Protein 6.3 L Albumin 3.4 Urine Color Colorless Urine Appearance Clear Urine pH 6.0 D Ur Specific [place] <= 1.005 Urine Protein Negative Urine Glucose (UA) Negative Urine Ketones Negative Urine Blood Negative Urine Nitrite Negative Urine Bilirubin Negative Urine Urobilinogen Negative Ur Leukocyte Esterase Negative 05/12/17 05/12/17 05/13/17 15:30 21:30 06:00 WBC 2.4 L RBC 2.75 L Hgb 8.0 L D Hct 23.2 L MCV 84.2 MCH 29.2 MCHC 34.7 RDW 18.8 H Plt Count 246 D MPV 8.3 Neutrophils % Y Neutrophils % (Manual) Band Neuts % (Manual) Lymphocytes % Y Lymphocytes % (Manual) Monocytes % (Manual) Eosinophils % (Manual) Basophils % (Manual) Nucleated RBC % Platelet Estimate Sodium Potassium Chloride Carbon Dioxide Anion Gap BUN Creatinine Creat Clearance w eGFR Random Glucose Lactic Acid 2.2 H* 1.5 Calcium Phosphorus Magnesium Total Bilirubin Direct Bilirubin AST ALT Alkaline Phosphatase Total Protein Albumin Urine Color Urine Appearance Urine pH Ur Specific [place] Urine Protein Urine Glucose (UA) Urine Ketones Urine Blood Urine Nitrite Urine Bilirubin Urine Urobilinogen Ur Leukocyte Esterase 05/13/17 05/13/17 06:00 06:00 WBC RBC Hgb Hct MCV MCH MCHC RDW Plt Count MPV Neutrophils % Neutrophils % (Manual) Band Neuts % (Manual) Lymphocytes % Lymphocytes % (Manual) Monocytes % (Manual) Eosinophils % (Manual) Basophils % (Manual) Nucleated RBC % Platelet Estimate Sodium 139 Potassium 3.7 Chloride 102 Carbon Dioxide 26 Anion Gap 11 BUN 5 L Creatinine 0.5 L D Creat Clearance w eGFR > 60 Random Glucose 140 H D Lactic Acid 2.1 H* Calcium 8.0 L Phosphorus 3.4 D Magnesium 1.9 Total Bilirubin 0.6 Direct Bilirubin AST 9 L D ALT 21 D Alkaline Phosphatase 68 Total Protein 5.5 L Albumin 2.9 L Urine Color Urine Appearance Urine pH Ur Specific [place] Urine Protein Urine Glucose (UA) Urine Ketones Urine Blood Urine Nitrite Urine Bilirubin Urine Urobilinogen Ur Leukocyte Esterase Active Medications Generic Name Dose Route Start Last Admin Trade Name Freq PRN Reason Stop Dose Admin Acetaminophen 650 mg 05/12/17 16:10 05/13/17 00:55 Tylenol - PO 650 mg Q6H PRN Administration FEVER OR PAIN Albuterol Sulfate 2 puff 05/12/17 16:49 Ventolin Hfa Inhaler - IH Q4H PRN SHORT OF BREATH/WHEEZING Budesonide/Formoterol Fumarate 1 puff 05/12/17 22:00 05/13/17 10:10 Symbicort 160/4.5mcg - IH 1 inhaler BID CIPRIANO Administration Enoxaparin Sodium 40 mg 05/13/17 10:00 05/13/17 10:10 Lovenox - SQ 40 mg DAILY CIPRIANO Administration Sodium Chloride 1,000 mls @ 125 mls/hr 05/12/17 18:48 05/12/17 22:19 Normal Saline - IV 125 mls/hr ASDIR CIPRIANO Administration Vancomycin HCl 1,250 mg/ 250 mls @ 250 mls/hr 05/13/17 06:00 05/13/17 06:03 Dextrose IVPB 250 mls/hr BID@ CIPRIANO Administration Meropenem 1 gm/ Dextrose 100 mls @ 200 mls/hr 05/13/17 03:00 05/13/17 10:10 IVPB 200 mls/hr Q8H-IV CIPRIANO Administration Sodium Chloride 500 mls @ 500 mls/hr 05/13/17 09:47 05/13/17 10:04 Normal Saline - IV 05/13/17 10:46 500 mls/hr ASDIR STA Administration Pantoprazole Sodium 40 mg 05/13/17 10:00 05/13/17 10:10 Protonix - PO 40 mg DAILY CIPRIANO Administration ASSESSMENT/PLAN: Patient is 56 yo F with left sided breast cancer was sent by her oncologist and admitted because of a white blood cell count of 2, low-grade fever, urinary urgency and increased urinary frequency. 1) Neutropenia/Low Grade fever s/p chemo -pending cultures -Continue IV Antibiotics: Meropenem 1 gm (day 1) -Continue Vancomycin - Starting granix daily tomorrow - Oncology seeing Visit type - Emergency Visit Emergency Visit: Yes ED Registration Date: 05/12/17 Care time: The patient presented to the Emergency Department on the above date and was hospitalized for further evaluation of their emergent condition. - New Patient This patient is new to me today: No - Critical Care Critical Care patient: No
[2017-05-13 10:58] LABS: BASOPHIL (MANUAL) 1 % (0-2.0)
[2017-05-13 10:59] LABS: NUCLEATED RED BLOOD CELL 2 % (0-0); PLATELET ESTIMATE ADEQUATE
[2017-05-13] MEDS: SODIUM CHLORIDE 1,000 ML IV SCH ×2 (11:28→19:15)
--- NOTE | 2017-05-13 11:38 | PN ---
Progress Note (short form) - Note Progress Note: Patient seen and examined 56 year old female undergoing chemotherapy with dose dense AC ( adriamycin/ cytoxan) and now receiving taxol therapy. Presents with febrile neutropenia. Remains with chills and fevers. Currently on antibiotics per I.D. Last Vital Signs Temp Pulse Resp BP Pulse Ox 99.5 F 101 H 18 144/87 98 05/13/17 09:00 05/13/17 09:00 05/13/17 09:00 05/13/17 09:00 05/12/17 21:00 ROS -- left sided occipital headache intermittently, no diplopia, epistaxis, dysphagia, chest pain, SOB, dyspnea, cough, GI complaints of nausea, emesis, diarrhea, constipation, no dysuria, hematuria, pyuria, no vaginal bleeding, no calf pain or tenderness, appetite fair. HEENT: AIXA, EOM Intact Oropharynx: No thrush, No mucositis Neck: Supple Nodes: Without adenopathy Breasts: Without masses Cor: RSR, No murmurs, No gallops Lungs: Clear to P&A Abd: Soft, Normal bowel sounds, No organomegaly Ext:No significant edema Skin: No rashes, Integument intact CBC, BMP 05/13/17 06:00 05/13/17 06:00 Current Medications Generic Name Dose Route Start Last Admin Trade Name Freq PRN Reason Stop Dose Admin Acetaminophen 650 mg 05/12/17 16:10 05/13/17 00:55 Tylenol - PO 650 mg Q6H PRN Administration FEVER OR PAIN Albuterol Sulfate 2 puff 05/12/17 16:49 Ventolin Hfa Inhaler - IH Q4H PRN SHORT OF BREATH/WHEEZING Budesonide/Formoterol Fumarate 1 puff 05/12/17 22:00 05/13/17 10:10 Symbicort 160/4.5mcg - IH 1 inhaler BID CIPRIANO Administration Enoxaparin Sodium 40 mg 05/13/17 10:00 05/13/17 10:10 Lovenox - SQ 40 mg DAILY CIPRIANO Administration Sodium Chloride 1,000 mls @ 125 mls/hr 05/12/17 18:48 05/13/17 11:28 Normal Saline - IV 125 mls/hr ASDIR CIPRIANO Administration Vancomycin HCl 1,250 mg/ 250 mls @ 250 mls/hr 05/13/17 06:00 05/13/17 06:03 Dextrose IVPB 250 mls/hr BID@ CIPRIANO Administration Meropenem 1 gm/ Dextrose 100 mls @ 200 mls/hr 05/13/17 03:00 05/13/17 10:10 IVPB 200 mls/hr Q8H-IV CIPRIANO Administration Pantoprazole Sodium 40 mg 05/13/17 10:00 05/13/17 10:10 Protonix - PO 40 mg DAILY CIPRIANO Administration Microbiology 05/12/17 10:15 Urine - Urine Clean Catch Urine Culture - Final NO GROWTH OBTAINED Impression: Febrile neutropenia - Meropenem and vancomycin per I.D. Still with no appreciable PMN's but increase monos noted. Monos ordinarily precede bone marrow production of PMN's . In addition, they are also phagocytic. Anemia- if further fall, will require transfusion therapy . Transfuse for Hb < 8.0 gm Neutropenia - continue with growth factor support Breast ca -under therapy
--- NOTE | 2017-05-13 14:08 | PN ---
Physical Exam: SUBJECTIVE: Patient seen and examined. She has subjective chills or diaphoresis. She has no acute complaints. Events: - Febrile overnight and now OBJECTIVE: Vital Signs Period Temp Pulse Resp BP Sys/Lerner Pulse Ox Last 24 Hr 99.5 F-102.9 F 93-118 18-20 139-157/79-87 98 PE Neuro: alert, awake, cn 2-12intact HEENT: no thrush Pulm: CTAB CV: s1 s2 rrr no mrg Abd: s nt nd +bs Ext: warm, no le edema CBCD WBC 2.4 K/mm3 (4.0-10.0) L 05/13/17 06:00 RBC 2.75 M/mm3 (3.60-5.2) L 05/13/17 06:00 Hgb 8.0 GM/dL (10.7-15.3) L D 05/13/17 06:00 Hct 23.2 % (32.4-45.2) L 05/13/17 06:00 MCV 84.2 fl (80-96) 05/13/17 06:00 MCHC 34.7 g/dl (32.0-36.0) 05/13/17 06:00 RDW 18.8 % (11.6-15.6) H 05/13/17 06:00 Plt Count 246 K/MM3 (134-434) D 05/13/17 06:00 MPV 8.3 fl (7.5-11.1) 05/13/17 06:00 CMP Sodium 139 mmol/L (136-145) 05/13/17 06:00 Potassium 3.7 mmol/L (3.5-5.1) 05/13/17 06:00 Chloride 102 mmol/L (98-107) 05/13/17 06:00 Carbon Dioxide 26 mmol/L (21-32) 05/13/17 06:00 Anion Gap 11 (8-16) 05/13/17 06:00 BUN 5 mg/dL (7-18) L 05/13/17 06:00 Creatinine 0.5 mg/dL (0.55-1.02) L D 05/13/17 06:00 Creat Clearance w eGFR > 60 (>60) 05/13/17 06:00 Calcium 8.0 mg/dL (8.5-10.1) L 05/13/17 06:00 Total Bilirubin 0.6 mg/dL (0.2-1.0) 05/13/17 06:00 AST 9 U/L (15-37) L D 05/13/17 06:00 ALT 21 U/L (12-78) D 05/13/17 06:00 Alkaline Phosphatase 68 U/L (45-117) 05/13/17 06:00 Total Protein 5.5 g/dl (6.4-8.2) L 05/13/17 06:00 Albumin 2.9 g/dl (3.4-5.0) L 05/13/17 06:00 05/13/17 06:00 Lactic Acid 2.1 H* Active Medications Generic Name Dose Route Start Last Admin Trade Name Freq PRN Reason Stop Dose Admin Acetaminophen 650 mg 05/12/17 16:10 05/13/17 13:05 Tylenol - PO 650 mg Q6H PRN Administration FEVER OR PAIN Albuterol Sulfate 2 puff 05/12/17 16:49 Ventolin Hfa Inhaler - IH Q4H PRN SHORT OF BREATH/WHEEZING Budesonide/Formoterol Fumarate 1 puff 05/12/17 22:00 05/13/17 10:10 Symbicort 160/4.5mcg - IH 1 inhaler BID CIPRIANO Administration Enoxaparin Sodium 40 mg 05/13/17 10:00 05/13/17 10:10 Lovenox - SQ 40 mg DAILY CIPRIANO Administration Sodium Chloride 1,000 mls @ 125 mls/hr 05/12/17 18:48 05/13/17 11:28 Normal Saline - IV 125 mls/hr ASDIR CIPRIANO Administration Vancomycin HCl 1,250 mg/ 250 mls @ 250 mls/hr 05/13/17 06:00 05/13/17 06:03 Dextrose IVPB 250 mls/hr BID@ CIPRIANO Administration Meropenem 1 gm/ Dextrose 100 mls @ 200 mls/hr 05/13/17 03:00 05/13/17 10:10 IVPB 200 mls/hr Q8H-IV CIPRIANO Administration Pantoprazole Sodium 40 mg 05/13/17 10:00 05/13/17 10:10 Protonix - PO 40 mg DAILY CIPRIANO Administration Tbo-Filgrastim 480 mcg 05/14/17 10:00 Granix - SQ DAILY CIPRIANO Microbiology 05/12/17 12:15 Blood - Eva Cath Blood Culture - Preliminary NO GROWTH OBTAINED AFTER 24 HOURS, INCUBATION TO CONTINUE FOR 4 DAYS. 05/12/17 12:10 Blood - Peripheral Venous Blood Culture - Preliminary NO GROWTH OBTAINED AFTER 24 HOURS, INCUBATION TO CONTINUE FOR 4 DAYS. 05/12/17 10:15 Urine - Urine Clean Catch Urine Culture - Final NO GROWTH OBTAINED Assessment: 56 year old female with asthma, left breast CA s/p chemo admitted with neutropenic fever. Plan: 1. Sepsis d/t likely UTI as source - Urine and blood cx NGTD - Elevated lactate - Give 500mL bolus now - Run NS 125cc bag open until complete - Repeat LA @1530 - Stop zosyn - Start Meropenem 1gm q8 - Continue vanco 2. Lactic acidosis - See above 2. Neutropenic fever - Due to breast CA s/p chemo - Start granix daily starting tomorrow - Oncology seeing 3. Asthma - Symbicort HS 4. L breast CA - Chemo on hold 5. DVT ppx - Lovenox 40mg daily Problem List - Problems (1) Breast cancer, left Code(s): C50.912 - MALIGNANT NEOPLASM OF UNSPECIFIED SITE OF LEFT FEMALE BREAST (2) Neutropenia Code(s): D70.9 - NEUTROPENIA, UNSPECIFIED Visit type - Emergency Visit Emergency Visit: Yes ED Registration Date: 05/12/17 Care time: The patient presented to the Emergency Department on the above date and was hospitalized for further evaluation of their emergent condition. - New Patient This patient is new to me today: No - Critical Care Critical Care patient: No
--- NOTE | 2017-05-13 16:04 | PN ---
Teaching Attending Note Name of Resident: Johnny Reich ATTENDING PHYSICIAN STATEMENT I saw and evaluated the patient. I reviewed the resident's note and discussed the case with the resident. I agree with the resident's findings and plan as documented. SUBJECTIVE: started having high grade fevers yesterday afternoon- given concern for possible UTI and very low anc- meropenem and vancomycin were started she continues to have fevers no appetite no cough OBJECTIVE: Vital Signs Period Temp Pulse Resp BP Sys/Lerner Pulse Ox Last 24 Hr 99.5 F-102.9 F 93-118 18-20 139-157/79-87 98 no oral lesions cor-rrr lungs clear no rash abd soft,nt no perirectal erythema or discharge ext no edema CBC, BMP 05/13/17 06:00 05/13/17 06:00 anc 24 cxray clear Microbiology 05/12/17 12:15 Blood - Eva Cath Blood Culture - Preliminary NO GROWTH OBTAINED AFTER 24 HOURS, INCUBATION TO CONTINUE FOR 4 DAYS. 05/12/17 12:10 Blood - Peripheral Venous Blood Culture - Preliminary NO GROWTH OBTAINED AFTER 24 HOURS, INCUBATION TO CONTINUE FOR 4 DAYS. 05/12/17 10:15 Urine - Urine Clean Catch Urine Culture - Final NO GROWTH OBTAINED ASSESSMENT AND PLAN: neutropenic fevers-s/p chemo continue vancomycin and meropenem on neupogen f/u labs and cultures in am
[2017-05-13] MEDS: TBO-FILGRASTIM 480 MCG/0.8 ML DISP.SYRIN SQ SCH (18:57)
[2017-05-13] MEDS ORDERED: IBUPROFEN 600 MG TABLET (FP) PO ONE (19:00)
[2017-05-13] MEDS: NYSTATIN POWDER 100,000 UNITS/GM - 15 GM TOPICAL POWDER TP SCH (19:15)
[2017-05-13] MEDS ORDERED: oxyCODONE HCL 5 MG TABLET PO ONE (23:34)
[2017-05-14] MEDS: MEROPENEM 1 GM in DEXTROSE 5%-WATER 100 ML IVPB SCH ×3 (01:07→18:10)
[2017-05-14] MEDS: SODIUM CHLORIDE 1,000 ML IV SCH (04:00)
[2017-05-14] MEDS: VANCOMYCIN 1,250 MG in DEXTROSE 5%-WATER - 250 ML IVPB SCH ×2 (06:36→18:13)
[2017-05-14] MEDS: ACETAMINOPHEN 325 MG TABLET (FP) PO PRN ×3 (07:08→20:28)
[2017-05-14 07:22] LABS: MCH 28.7 pg (25.7-33.7); MCHC 34.4 g/dl (32.0-36.0); MEAN CELL VOLUME 83.5 fl (80-96); MEAN PLT VOLUME 8.7 fl (7.5-11.1); PLATELET COUNT 250 K/MM3 (134-434); RDW 17.9 % (11.6-15.6); WHITE BLOOD COUNT 2.8 K/mm3 (4.0-10.0)
[2017-05-14 07:48] LABS: ALBUMIN 2.8 g/dl (3.4-5.0); ANION GAP 9 (8-16); CALCIUM 8.4 mg/dL (8.5-10.1); CO2 26 mmol/L (21-32); CREATININE 0.5 mg/dL (0.55-1.02); GLUCOSE,RANDOM 168 mg/dL (74-106); MAGNESIUM 1.7 mg/dL (1.8-2.4); SGOT/AST 10 U/L (15-37)
[2017-05-14 07:59] LABS: ALK PHOS 66 U/L (45-117); BILIRUBIN,TOTAL 0.9 mg/dL (0.2-1.0); SGPT/ALT 20 U/L (12-78); TOT PROT 5.6 g/dl (6.4-8.2)
[2017-05-14] MEDS: PANTOPRAZOLE 40 MG TABLET (FP) PO SCH (09:53)
[2017-05-14] MEDS: ENOXAPARIN NA (PORCINE) 40 MG/0.4 ML DISP.SYRIN SQ SCH (09:53)
[2017-05-14] MEDS: TBO-FILGRASTIM 480 MCG/0.8 ML DISP.SYRIN SQ SCH (09:53)
[2017-05-14] MEDS: NYSTATIN POWDER 100,000 UNITS/GM - 15 GM TOPICAL POWDER TP SCH (09:55)
[2017-05-14] MEDS ORDERED: TBO-FILGRASTIM 480 MCG/0.8 ML DISP.SYRIN SQ SCH (10:00)
[2017-05-14] MEDS ORDERED: BUDESONIDE/FORMETEROL FUMARATE 160/4.5 mcg INHALER IH SCH (10:00)
[2017-05-14 11:16] LABS: PLATELET COMMENT2 MOD PLT CLUMPING
[2017-05-14 11:17] LABS: BLAST 2 % (0-0); PLATELET COMMENT3 MOD GIANT PLTS; TOTAL CELLS COUNTED 100
[2017-05-14 11:18] LABS: MICROCYTOSIS 1+; NUCLEATED RED BLOOD CELL 2 % (0-0); POLYCHROMASIA 2+
[2017-05-14 11:19] LABS: TOTAL CELLS COUNTED 100
[2017-05-14] MEDS ORDERED: MAGNESIUM SULF 50% (8.12 MEQ/2 ML-1 GM VIAL) IVPB ONE (13:00)
--- NOTE | 2017-05-14 13:11 | PN ---
Progress Note (short form) - Note Progress Note: PAtient seen and examined feels weak, tired has loss of appetite no urgency/frequency had small bowel movement today Last Vital Signs Temp Pulse Resp BP Pulse Ox 100.1 F H 105 H 18 140/93 98 05/14/17 02:00 05/14/17 02:00 05/14/17 02:00 05/14/17 02:00 05/13/17 21:00 Cor: RSR, No murmurs, No gallops Lungs: Clear to P&A Abd: Soft, Normal bowel sounds, No organomegaly Ext:No significant edema Skin: No rashes, Integument intact Abnormal Lab Results 05/14/17 05/14/17 06:30 06:30 WBC 2.8 L RBC 2.84 L Hgb 8.2 L Hct 23.7 L RDW 17.9 H Neutrophils % (Manual) 2 L Lymphocytes % (Manual) 76 H* D Monocytes % (Manual) 20 H* Blast Cells % (Manual) 2 H Nucleated RBC % 2 H BUN 4 L Creatinine 0.5 L Random Glucose 168 H Calcium 8.4 L Magnesium 1.7 L AST 10 L Total Protein 5.6 L Albumin 2.8 L A/P 56 y/o patient with triple negative, node + breast cancer , s/p ACx4 dose dense , started weekly taxol 05/05, comes in with severe neutropenia, fevers Chemotherapy induced anemia: Transfuse PRBCs given symptomatic anemia Febrile neutropenia --D10 after weekly taxol ANC still low on neupogen On meropenem, vanco decrease IV fluids will follow
[2017-05-14] MEDS ORDERED: SODIUM CHLORIDE 1,000 ML IV SCH (13:27)
--- NOTE | 2017-05-14 16:32 | PN ---
Progress Note (short form) - Note Progress Note: intermittent fevers headache when she has temp small bm earlier today no rectal pain no cold sores Vital Signs Period Temp Pulse Resp BP Sys/Lerner Pulse Ox Last 24 Hr 99.0 F-102.9 F 95-114 18-20 115-145/71-93 98 no oral lesions cor-rrr lungs clear abd soft,nt ext some lesions on inner thighs that are healed skin abscesses per patienet ( old) CBC, BMP 05/14/17 06:30 05/14/17 06:30 Microbiology 05/12/17 12:15 Blood - Eva Cath Blood Culture - Preliminary NO GROWTH OBTAINED AFTER 48 HOURS, INCUBATION TO CONTINUE FOR 3 DAYS. 05/12/17 12:10 Blood - Peripheral Venous Blood Culture - Preliminary NO GROWTH OBTAINED AFTER 48 HOURS, INCUBATION TO CONTINUE FOR 3 DAYS. 05/12/17 10:15 Urine - Urine Clean Catch Urine Culture - Final NO GROWTH OBTAINED a/p profound neutropenia s/p chemo breast cancer continue vanco and meropenem skin lesions and perirectal fissures d/w Dr Ch check vancomycin trough hopefully wbc will recover soon
--- NOTE | 2017-05-14 17:39 | PN ---
Physical Exam: SUBJECTIVE: Patient seen and examined. She complains of fatigue and sinus pain/ BROWNLEE when her fever comes. Also dyspnea on exertion to the bathroom OBJECTIVE: Vital Signs Period Temp Pulse Resp BP Sys/Lerner Pulse Ox Last 24 Hr 99.0 F-102.9 F 95-114 18-20 115-145/71-93 98 PE Neuro: alert, awake, cn 2-12intact Pulm: CTAB CV: s1 s2 rrr nomrg Abd: s nt nd +bs : + hemorrhoids, no bleeding, anal fissure open, no draining, pilonidal cyst removed- non infectious appearing Ext: +1 pitting le edema Laboratory Results - last 24 hr 05/14/17 05/14/17 05/14/17 06:30 06:30 06:30 WBC 2.8 L RBC 2.84 L Hgb 8.2 L Hct 23.7 L MCV 83.5 MCH 28.7 MCHC 34.4 RDW 17.9 H Plt Count 250 MPV 8.7 Neutrophils % Y Neutrophils % (Manual) 2 L Lymphocytes % Y Lymphocytes % (Manual) 76 H* D Monocytes % (Manual) 20 H* Blast Cells % (Manual) 2 H Nucleated RBC % 2 H Platelet Comment Mod plt clumping RBC Morphology Y Polychromasia 2+ Microcytosis 1+ Rouleaux 2+ Sodium 136 Potassium 3.6 Chloride 101 Carbon Dioxide 26 Anion Gap 9 BUN 4 L Creatinine 0.5 L Creat Clearance w eGFR > 60 Random Glucose 168 H Lactic Acid 1.3 Calcium 8.4 L Magnesium 1.7 L Total Bilirubin 0.9 D AST 10 L ALT 20 Alkaline Phosphatase 66 Total Protein 5.6 L Albumin 2.8 L Blood Type Antibody Screen Crossmatch Active Medications Generic Name Dose Route Start Last Admin Trade Name Freq PRN Reason Stop Dose Admin Acetaminophen 650 mg 05/12/17 16:10 05/14/17 13:51 Tylenol - PO 650 mg Q6H PRN Administration FEVER OR PAIN Albuterol Sulfate 2 puff 05/12/17 16:49 Ventolin Hfa Inhaler - IH Q4H PRN SHORT OF BREATH/WHEEZING Budesonide/Formoterol Fumarate 1 puff 05/14/17 10:00 05/14/17 09:55 Symbicort 160/4.5mcg - IH 1 puff DAILY CIP[facility]ANO Administration Enoxaparin Sodium 40 mg 05/13/17 10:00 05/14/17 09:53 Lovenox - SQ 40 mg DAILY C[facility]ANO Administration Vancomycin HCl 1,250 mg/ 250 mls @ 250 mls/hr 05/13/17 06:00 05/14/17 06:36 Dextrose IVPB 250 mls/hr BID@,18 C[facility]ANO Administration Meropenem 1 gm/ Dextrose 100 mls @ 200 mls/hr 05/13/17 03:00 05/14/17 09:53 IVPB 200 mls/hr Q8H-IV CIPRIANO Administration Sodium Chloride 1,000 mls @ 75 mls/hr 05/14/17 13:27 05/14/17 13:44 Normal Saline - IV 75 mls/hr ASDIR C[facility]ANO Administration Nystatin 1 applic 05/13/17 17:00 05/14/17 09:55 Nystop Powder - TP 1 applic DAILY [facility]O Administration Pantoprazole Sodium 40 mg 05/13/17 10:00 05/14/17 09:53 Protonix - PO 40 mg DAILY CIPRIANO Administration Microbiology 05/12/17 12:15 Blood Culture - Preliminary Blood - Eva Cath NO GROWTH OBTAINED AFTER 48 HOURS, INCUBATION TO CONTINUE FOR 3 DAYS. 05/12/17 12:10 Blood Culture - Preliminary Blood - Peripheral Venous NO GROWTH OBTAINED AFTER 48 HOURS, INCUBATION TO CONTINUE FOR 3 DAYS. Assessment: 56 year old female with asthma, left breast CA s/p chemo admitted with neutropenic fever. Plan: 1. Sepsis d/t likely UTI as source - Lactate wnl - Decrease fluids 75cc/hr - Continue vanco, check trough - Continue nadya - ID seeing 2. Lactic acidosis - Resolved 3. Anemia - Transfuse 1uprbc 4. Neutropenic fever - Due to breast CA s/p chemo - Granix daily - Oncology seeing 5. Asthma - Symbicort HS 6. L breast CA - Chemo on hold 7. DVT ppx - Lovenox 40mg daily Problem List - Problems (1) Breast cancer, left Code(s): C50.912 - MALIGNANT NEOPLASM OF UNSPECIFIED SITE OF LEFT FEMALE BREAST (2) Neutropenia Code(s): D70.9 - NEUTROPENIA, UNSPECIFIED Visit type - Emergency Visit Emergency Visit: Yes ED Registration Date: 05/12/17 Care time: The patient presented to the Emergency Department on the above date and was hospitalized for further evaluation of their emergent condition. - New Patient This patient is new to me today: No - Critical Care Critical Care patient: No
[2017-05-14] MEDS ORDERED: PT OWN MED DRAWER 7, Y5N ONE (17:58)
[2017-05-15] MEDS ORDERED: PT OWN MED DRAWER 7, Y5N ONE ×3 (01:02→16:53)
[2017-05-15] MEDS: MEROPENEM 1 GM in DEXTROSE 5%-WATER 100 ML IVPB SCH (01:05)
[2017-05-15] MEDS: ACETAMINOPHEN 325 MG TABLET (FP) PO PRN ×2 (01:22→19:42)
[2017-05-15] MEDS ORDERED: ACETAMINOPHEN 325 MG TABLET (FP) PO ONE (01:30)
[2017-05-15] MEDS ORDERED: dilTIAZem HCL 30 MG TABLET (FP) PO ONE (03:20)
[2017-05-15] MEDS ORDERED: dilTIAZem HCL 50 MG/10 ML - 10 ML VIAL IVPUSH ONE ×2 (05:19→05:54)
--- NOTE | 2017-05-15 05:51 | HOSP ---
Subjective - Review of Symptoms Events since last encounter: Hospitalist Encounter Notified by RN, that the patient's HR [address] Jones, who assessed the patient, she ordered cardizem po, attempted carotid massage, had patient do valsava maneuver, with little improvement, CE ordered and drawn Order placed to transfer patient to Tele Cardiac Consult ordered Patient transferred to Tele, received call from RN, HR 150's, Cardizem IV ordered Will reassess patient, and inform Day Team Cardiovascular: Yes: Chest Pain, Palpitations Physical Examination Vital Signs: Vital Signs Temperature 100.2 F H 05/15/17 04:26 Pulse Rate 166 H 05/15/17 04:26 Respiratory Rate 20 05/15/17 04:26 Blood Pressure 115/77 05/15/17 04:26 O2 Sat by Pulse Oximetry (%) 98 05/13/17 21:00 Labs: CBC, BMP 05/14/17 06:30 05/14/17 06:30
[2017-05-15] MEDS ORDERED: DIGOXIN 0.5 MG/2 ML AMPUL ONE (06:00)
[2017-05-15] MEDS ORDERED: METOPROLOL TARTRATE 5 MG/5 ML VIAL ONE (06:00)
[2017-05-15] MEDS: METOPROLOL TARTRATE 25 MG TABLET (FP) PO SCH ×2 (06:30→21:07)
[2017-05-15] MEDS ORDERED: METOPROLOL TARTRATE 5 MG/5 ML VIAL IVPB ONE (06:30)
[2017-05-15 06:34] LABS: MCH 28.5 pg (25.7-33.7); MCHC 34.3 g/dl (32.0-36.0); MEAN PLT VOLUME 9.1 fl (7.5-11.1); PLATELET COUNT 218 K/MM3 (134-434); RDW 18.4 % (11.6-15.6); WHITE BLOOD COUNT 3.2 K/mm3 (4.0-10.0)
[2017-05-15] MEDS ORDERED: ENOXAPARIN NA (PORCINE) 100 MG/1 ML DISP.SYRIN SQ ONE (06:45)
[2017-05-15] MEDS ORDERED: IBUPROFEN 600 MG TABLET (FP) PO ONE (06:45)
[2017-05-15] MEDS ORDERED: DIGOXIN 0.5 MG/2 ML AMPUL IVPUSH ONE (06:45)
[2017-05-15 06:50] LABS: ALBUMIN 2.6 g/dl (3.4-5.0); ANION GAP 8 (8-16); BILIRUBIN,TOTAL 0.7 mg/dL (0.2-1.0); CALCIUM 7.9 mg/dL (8.5-10.1); CO2 27 mmol/L (21-32); CREATININE 0.4 mg/dL (0.55-1.02); GLUCOSE,RANDOM 172 mg/dL (74-106); SGOT/AST 19 U/L (15-37); SGPT/ALT 17 U/L (12-78); TOT PROT 5.4 g/dl (6.4-8.2)
[2017-05-15 06:51] LABS: ALK PHOS 67 U/L (45-117)
[2017-05-15] MEDS ORDERED: POTASSIUM CHLORIDE ORAL LIQUID 20 MEQ/15 ML PO ONE ×2 (07:32→17:43)
[2017-05-15 07:53] LABS: BASOPHIL (MANUAL) 2 % (0-2.0); METAMYELOCYTE 1 % (0-2); MYELOCYTE 1 % (0-2); TOTAL CELLS COUNTED 100
[2017-05-15 07:54] LABS: PLATELET ESTIMATE ADEQUATE
[2017-05-15] MEDS ORDERED: ALBUTEROL SO4 6.7 GM HFA INHALER IH PRN (08:25)
[2017-05-15] MEDS ORDERED: HYDROCORTISONE SOD SUCCINATE 100 MG/2 ML VIAL IVPB PRN (08:47)
--- NOTE | 2017-05-15 09:31 | PN ---
Progress Note (short form) - Note Progress Note: PULMONARY/CCM Pt seen and examined in the ICU. Transferred down for episode of SVT then atrial flutter/fibrillation, started on cardizem gtt now in sinus rhythm. Denies chest pain, shortness of breath. Remains febrile. Last Vital Signs Temp Pulse Resp BP Pulse Ox 99.1 F 71 20 110/61 99 05/15/17 08:00 05/15/17 08:00 05/15/17 08:00 05/15/17 08:00 05/15/17 08:50 Intake & Output 05/12/17 05/13/17 05/14/17 05/15/17 23:59 23:59 23:59 23:59 Intake Total 1430 64085 3737.5 Output Total 200 3 Balance 1230 67497 3734.5 Weight 243 lb Gen: mildly diaphoretic Heart: RRR Lung: decreased breath sounds at the bases Abd: soft, nontender Ext: no edema CBC, BMP 05/15/17 05:40 05/15/17 05:40 Active Medications Acetaminophen (Tylenol -) 650 mg PO Q6H PRN PRN Reason: FEVER OR PAIN Albuterol Sulfate (Ventolin Hfa Inhaler -) 2 puff IH Q4H PRN PRN Reason: SHORT OF BREATH/WHEEZING Budesonide/Formoterol Fumarate (Symbicort 160/4.5mcg -) 1 puff IH DAILY [facility] Enoxaparin Sodium (Lovenox -) 40 mg SQ DAILY [facility] Hydrocortisone Sodium Succinate (Solu-Cortef -) 50 mg IVPB Q6H PRN PRN Reason: FEVER > 101.6 Diltiazem HCl 125 mg/ Dextrose 125 mls @ 5 mls/hr IVPB TITR CIPRIANO; 5 MG/HR PRN Reason: Protocol Last Admin: 05/15/17 06:55 Dose: 10 mls/hr Meropenem 1 gm/ Dextrose 100 mls @ 200 mls/hr IVPB Q8H-IV CIP[facility]O Sodium Chloride (Normal Saline -) 1,000 mls @ 75 mls/hr IV ASDIR [facility] Vancomycin HCl 1,250 mg/ (Dextrose) 250 mls @ 250 mls/hr IVPB BID@06,18 [facility]O Metoprolol Tartrate (Lopressor -) 25 mg PO BID [facility]O Last Admin: 08/20/17 06:30 Dose: 25 mg Nystatin (Nystop Powder -) 1 applic TP DAILY [facility]O Pantoprazole Sodium (Protonix -) 40 mg PO DAILY CIPRIANO A/P SVT Neutropenic Sepsis Breast Ca Lactic Acidosis resolved Anemia Asthma - continue antibiotics per ID - f/u cultures - IVF - replete lytes - continue metoprolol - taper off cardizem gtt - continue hydrocortisone - monitor CBC - filgrastim per oncology - DVT prophylaxis
[2017-05-15] MEDS: SODIUM CHLORIDE 1,000 ML IV SCH ×2 (09:43→17:08)
[2017-05-15] MEDS: MEROPENEM 1 GM in DEXTROSE 5%-WATER - 100 ML IVPB SCH ×2 (09:45→17:03)
[2017-05-15] MEDS: VANCOMYCIN 1,250 MG in DEXTROSE 5%-WATER - 250 ML IVPB SCH ×2 (09:46→15:19)
[2017-05-15] MEDS: PANTOPRAZOLE 40 MG TABLET (FP) PO SCH (09:47)
[2017-05-15] MEDS: ENOXAPARIN NA (PORCINE) 40 MG/0.4 ML DISP.SYRIN SQ SCH (09:51)
[2017-05-15] MEDS ORDERED: MAGNESIUM OXIDE 400 MG TABLET (FP) PO ONE (10:30)
--- NOTE | 2017-05-15 10:44 | PN ---
Progress Note (short form) - Note Progress Note: intermittent fevers headache when she has temp no rectal pain, no cold sores no abd pain no cough no sob had tachycardia last pm-svt afib now in ICU, improved denies prior viral illnes, no time outdoors, no tick or mosquito bites Vital Signs Period Temp Pulse Resp BP Sys/Lerner Pulse Ox Last 24 Hr 99.1 F-103.1 F 71-168 18-20 110-157/61-88 99 alert no thrush, no oral sores cor-rrr lungs slear port no erythema abd soft,nt prior skin abscesses inner thighs noted unchanged no fungal rash perirctal area unchanged, no drainage, small ext hemorrhoid ext no edema CBC, BMP 05/15/17 05:40 05/15/17 05:40 Microbiology 05/12/17 12:15 Blood - Eva Cath Blood Culture - Preliminary NO GROWTH OBTAINED AFTER 48 HOURS, INCUBATION TO CONTINUE FOR 3 DAYS. 05/12/17 12:10 Blood - Peripheral Venous Blood Culture - Preliminary NO GROWTH OBTAINED AFTER 48 HOURS, INCUBATION TO CONTINUE FOR 3 DAYS. 05/12/17 10:15 Urine - Urine Clean Catch Urine Culture - Final NO GROWTH OBTAINED a/p profound neutropenia s/p chemo breast cancer continue meropenem day #3 d/c vancomycin blood cultures are negative reculture today consider adding empiric cancidas in am if fevers persist no active skin lesions no perirectal erythema or drainage noted d/w Dr Ch
[2017-05-15] MEDS ORDERED: POTASSIUM CHLORIDE TABS 20 MEQ TABLET.ER (FP) PO ONE (11:00)
--- NOTE | 2017-05-15 11:07 | CONSULT ---
Consult - text type - Consultation Consultation Note: Cardiology fever, palp this am; currently asymptomatic PE: normal cardio-pulmonary exam abdomen soft no leg edema Impression: atrial flutter episode, changed to NSR with cardizem CI, digoxin, metoprolol IVP stable NSR currently profound neutropenia s/p chemo breast cancer meropenem day #3 anemia, low K, asthma Rec: cardizem 30 mg BID, after stopping infusion this evem if she stays in NSR.
[2017-05-15] MEDS: BUDESONIDE/FORMETEROL FUMARATE 160/4.5 mcg INHALER IH SCH (12:33)
[2017-05-15] MEDS: NYSTATIN POWDER 100,000 UNITS/GM - 15 GM TOPICAL POWDER TP SCH (12:34)
--- NOTE | 2017-05-15 12:49 | EKG ---
Test Reason : Blood Pressure : / mmHG Vent. Rate : 169 BPM Atrial Rate : 170 BPM P-R Int : 000 ms QRS Dur : 096 ms QT Int : 234 ms P-R-T Axes : 000 -15 138 degrees QTc Int : 392 ms SUPRAVENTRICULAR TACHYCARDIA NONSPECIFIC ST AND T WAVE ABNORMALITY ABNORMAL ECG WHEN COMPARED WITH ECG OF 08-MAR-2017 09:50, VENT. RATE HAS INCREASED BY 94 BPM NON-SPECIFIC CHANGE IN ST SEGMENT IN INFERIOR LEADS ST NOW DEPRESSED IN LATERAL LEADS INVERTED T WAVES HAVE REPLACED NONSPECIFIC T WAVE ABNORMALITY IN INFERIOR LEADS T WAVE INVERSION NOW EVIDENT IN LATERAL LEADS Confirmed by ALISHA DEL ROSARIO MD ([id number]) on 05/15/2017 12:49:20 PM Referred By: Confirmed By:ALISHA DEL ROSARIO MD
--- NOTE | 2017-05-15 14:38 | PN ---
Progress Note (short form) - Note Progress Note: PAtient seen and examined events overnight reviewed feels more energetic Last Vital Signs Temp Pulse Resp BP Pulse Ox 100.1 F H 105 H 18 140/93 98 05/14/17 02:00 05/14/17 02:00 05/14/17 02:00 05/14/17 02:00 05/13/17 21:00 Cor: RSR, No murmurs, No gallops Lungs: Clear to P&A Abd: Soft, Normal bowel sounds, No organomegaly Ext:No significant edema Abnormal Lab Results 05/14/17 05/14/17 06:30 06:30 WBC 2.8 L RBC 2.84 L Hgb 8.2 L Hct 23.7 L RDW 17.9 H Neutrophils % (Manual) 2 L Lymphocytes % (Manual) 76 H* D Monocytes % (Manual) 20 H* Blast Cells % (Manual) 2 H Nucleated RBC % 2 H BUN 4 L Creatinine 0.5 L Random Glucose 168 H Calcium 8.4 L Magnesium 1.7 L AST 10 L Total Protein 5.6 L Albumin 2.8 L A/P 56 y/o patient with triple negative, node + breast cancer , s/p ACx4 dose dense , started weekly taxol 05/05, comes in with severe neutropenia, fevers Chemotherapy induced anemia: Transfuse PRBCs given symptomatic anemia Febrile neutropenia --D11 after weekly taxol ANC still low--early band, myelocyte, metamyelocyte On meropenem, discussed with ID team No obvious infectious source ? cytokine fevers related to GCSF. will hold GCSF reculture maintenance IV fluids replete potasium
[2017-05-15] MEDS: dilTIAZem HCL 30 MG TABLET (FP) PO SCH (17:03)
--- NOTE | 2017-05-15 17:45 | PN ---
Physical Exam: SUBJECTIVE: Patient seen and examined in ICU. She feels tired, but no longer with palpitations. Event: - persistent fevers - episode of svt/afib/flutter transferred to ICU, placed on cardizem gtt OBJECTIVE: Vital Signs Period Temp Pulse Resp BP Sys/Lerner Pulse Ox Last 24 Hr 98.7 F-103.1 F 71-168 15-20 83-157/48-88 99 PE Gen: tearful Neuro: alert, awake, cn 2-12intact Pulm: CTAB, chest port CDI CV: s1 s2 rrr nomrg Abd: s nt nd +bs : + hemorrhoids and anal fissure no change Ext: +1 pitting le edema Laboratory Results - last 24 hr 05/14/17 05/15/17 05/15/17 14:45 03:15 05:40 WBC RBC Hgb Hct MCV MCH MCHC RDW Plt Count MPV Neutrophils % Neutrophils % (Manual) Band Neuts % (Manual) Lymphocytes % Lymphocytes % (Manual) Monocytes % (Manual) Eosinophils % (Manual) Basophils % (Manual) Myelocytes % (Man) Platelet Estimate Sodium Potassium Chloride Carbon Dioxide Anion Gap BUN Creatinine Creat Clearance w eGFR Random Glucose Calcium Total Bilirubin AST ALT Alkaline Phosphatase Troponin I 0.09 H Total Protein Albumin Vancomycin Pre-Dose 4.035 L* Blood Type B NEGATIVE Antibody Screen Negative Crossmatch See Detail 05/15/17 05/15/17 05:40 05:40 WBC 3.2 L RBC 3.03 L Hgb 8.6 L Hct 25.1 L MCV 83.0 MCH 28.5 MCHC 34.3 RDW 18.4 H Plt Count 218 MPV 9.1 Neutrophils % Y Neutrophils % (Manual) 0 L Band Neuts % (Manual) 1 Lymphocytes % Y Lymphocytes % (Manual) 32 D Monocytes % (Manual) 61 H* Eosinophils % (Manual) 2 D Basophils % (Manual) 2 Myelocytes % (Man) 1 Platelet Estimate Adequate Sodium 136 Potassium 3.1 L Chloride 101 Carbon Dioxide 27 Anion Gap 8 BUN 3 L D Creatinine 0.4 L Creat Clearance w eGFR > 60 Random Glucose 172 H Calcium 7.9 L Total Bilirubin 0.7 D AST 19 D ALT 17 Alkaline Phosphatase 67 Troponin I Total Protein 5.4 L Albumin 2.6 L Vancomycin Pre-Dose Blood Type Antibody Screen Crossmatch Active Medications Generic Name Dose Route Start Last Admin Trade Name Freq PRN Reason Stop Dose Admin Acetaminophen 650 mg 05/15/17 08:25 Tylenol - PO Q6H PRN FEVER OR PAIN Albuterol Sulfate 2 puff 05/15/17 08:25 Ventolin Hfa Inhaler - IH Q4H PRN SHORT OF BREATH/WHEEZING Budesonide/Formoterol Fumarate 1 puff 05/15/17 10:00 05/15/17 12:33 Symbicort 160/4.5mcg - IH 1 puff DAILY CIPRIANO Administration Diltiazem HCl 30 mg 05/15/17 17:00 05/15/17 17:03 Cardizem - PO 30 mg BID CIP[facility]ANO Administration Enoxaparin Sodium 40 mg 05/15/17 10:00 05/15/17 09:51 Lovenox - SQ Not Given DAILY CIPRIANO Hydrocortisone Sodium Succinate 50 mg 05/15/17 08:47 Solu-Cortef - IVPB Q6H PRN FEVER > 101.6 Diltiazem HCl 125 mg/ Dextrose 125 mls @ 5 mls/hr 05/15/17 06:00 05/15/17 09:00 IVPB 5 mg/hr TITR CIPRIANO Titration Protocol 5 MG/HR Meropenem 1 gm/ Dextrose 100 mls @ 200 mls/hr 05/15/17 10:00 05/15/17 17:03 IVPB 200 mls/hr Q8H-IV CIPRIANO Administration Sodium Chloride 1,000 mls @ 75 mls/hr 05/15/17 08:25 05/15/17 17:08 Normal Saline - IV 75 mls/hr ASDIR CIP[facility]ANO Administration Metoprolol Tartrate 25 mg 05/15/17 06:45 05/15/17 06:30 Lopressor - PO 25 mg BID CIPRIANO Administration Nystatin 1 applic 05/15/17 10:00 05/15/17 12:34 Nystop Powder - TP 1 applic DAILY CIPRIANO Administration Pantoprazole Sodium 40 mg 05/15/17 10:00 05/15/17 09:47 Protonix - PO 40 mg DAILY CIPRIANO Administration Potassium Chloride 20 meq 05/15/17 17:43 Potassium Chloride Oral Liquid PO 05/15/17 17:44 ONCE ONE Assessment: 56 year old female with asthma, left breast CA s/p chemo admitted with neutropenic fever. Plan: 1. SVT/Afib/flutter - Converted to NSR - Cardizem gtt stopped - PO cardizem 30mg BID - ECHO in morning - Thought to be transient svt/flutter d/t persistent fevers, if echo normal tomorrow can likely discontinue cardizem and no need for AC - D/w cardiology and dr. palmer 2. Sepsis d/t likely UTI as source - Stopped vanco - Continue meropenem - ID seeing 3. Lactic acidosis - Resolved 4. Symptomatic Anemia - Transfuse 2uprbc 5. Neutropenic fever - Due to breast CA s/p chemo - Stop granix, ? cause of fevers - Repeat blood cultures - Hydrocortisone PRN for fever - d/w oncology 6. Asthma - Symbicort HS 7. L breast CA - s/p ACx4 dose dense, started weekly taxol 05/05 - chemo on hold 8. DVT ppx - Lovenox 40mg daily 9. Hypokalemia - Replete 40meq x2 today Problem List - Problems (1) Breast cancer, left Code(s): C50.912 - MALIGNANT NEOPLASM OF UNSPECIFIED SITE OF LEFT FEMALE BREAST (2) Neutropenia Code(s): D70.9 - NEUTROPENIA, UNSPECIFIED Visit type - Emergency Visit Emergency Visit: Yes ED Registration Date: 05/12/17 Care time: The patient presented to the Emergency Department on the above date and was hospitalized for further evaluation of their emergent condition. - New Patient This patient is new to me today: No - Critical Care Critical Care patient: No
[2017-05-15] MEDS ORDERED: VANCOMYCIN 1,250 MG in DEXTROSE 5%-WATER - 250 ML IVPB SCH (18:00)
[2017-05-15 20:21] LABS: TROPONIN I 0.25 ng/ml (0.00-0.05)
[2017-05-15] MEDS: IBUPROFEN 600 MG TABLET (FP) PO PRN (21:07)
[2017-05-16] MEDS ORDERED: PT OWN MED DRAWER 7, Y5N ONE ×3 (02:10→17:23)
[2017-05-16] MEDS: MEROPENEM 1 GM in DEXTROSE 5%-WATER - 100 ML IVPB SCH ×3 (02:19→17:59)
[2017-05-16 06:46] LABS: MCH 28.8 pg (25.7-33.7); MCHC 34.7 g/dl (32.0-36.0); MEAN PLT VOLUME 9.2 fl (7.5-11.1); PLATELET COUNT 167 K/MM3 (134-434); RDW 17.7 % (11.6-15.6); WHITE BLOOD COUNT 3.1 K/mm3 (4.0-10.0)
[2017-05-16 07:27] LABS: ALBUMIN 2.6 g/dl (3.4-5.0); ANION GAP 8 (8-16); CALCIUM 8.4 mg/dL (8.5-10.1); CO2 29 mmol/L (21-32); GLUCOSE,RANDOM 155 mg/dL (74-106); MAGNESIUM 2.2 mg/dL (1.8-2.4)
[2017-05-16 07:32] LABS: ALK PHOS 65 U/L (45-117); BILIRUBIN,TOTAL 0.7 mg/dL (0.2-1.0); CREATININE 0.3 mg/dL (0.55-1.02); PHOSPHOROUS 2.7 mg/dL (2.5-4.9); SGOT/AST 26 U/L (15-37); SGPT/ALT 17 U/L (12-78); TOT PROT 5.3 g/dl (6.4-8.2)
[2017-05-16 08:14] LABS: METAMYELOCYTE 5 % (0-2); MYELOCYTE 4 % (0-2); NUCLEATED RED BLOOD CELL 3 % (0-0); PLATELET ESTIMATE ADEQUATE; TOTAL CELLS COUNTED 100
[2017-05-16] MEDS: ENOXAPARIN NA (PORCINE) 40 MG/0.4 ML DISP.SYRIN SQ SCH (10:29)
[2017-05-16] MEDS: PANTOPRAZOLE 40 MG TABLET (FP) PO SCH (10:29)
--- NOTE | 2017-05-16 10:37 | PN ---
Progress Note, Physician History of Present Illness: Awake, alert Febrile overnight No focal complaint Remains profoundly neutropenic Cultures no growth - Current Medication List Current Medications: Active Medications Acetaminophen (Tylenol -) 650 mg PO Q6H PRN PRN Reason: FEVER OR PAIN Last Admin: 05/15/17 19:42 Dose: 650 mg Albuterol Sulfate (Ventolin Hfa Inhaler -) 2 puff IH Q4H PRN PRN Reason: SHORT OF BREATH/WHEEZING Budesonide/Formoterol Fumarate (Symbicort 160/4.5mcg -) 1 puff IH DAILY CIP[facility]ANO Last Admin: 05/15/17 12:33 Dose: 1 puff Diltiazem HCl (Cardizem -) 30 mg PO BID [facility]O Last Admin: 05/15/17 17:03 Dose: 30 mg Enoxaparin Sodium (Lovenox -) 40 mg SQ DAILY [facility]IP[facility]ANO Last Admin: 05/16/17 10:29 Dose: 40 mg Diltiazem HCl 125 mg/ Dextrose 125 mls @ 5 mls/hr IVPB TITR CIPRIANO; 5 MG/HR PRN Reason: Protocol Last Admin: 05/16/17 07:28 Dose: Not Given Meropenem 1 gm/ Dextrose 100 mls @ 200 mls/hr IVPB Q8H-IV [facility]IPRIANO Last Admin: 05/16/17 10:29 Dose: 200 mls/hr Sodium Chloride (Normal Saline -) 1,000 mls @ 75 mls/hr IV ASDIR [facility]IP[facility]ANO Last Admin: 05/15/17 17:08 Dose: 75 mls/hr Ibuprofen (Motrin -) 600 mg PO Q8H PRN PRN Reason: FEVER Last Admin: 05/15/17 21:07 Dose: 600 mg Metoprolol Tartrate (Lopressor -) 25 mg PO BID CIP[facility]ANO Last Admin: 05/15/17 21:07 Dose: 25 mg Nystatin (Nystop Powder -) 1 applic TP DAILY [facility]IP[facility]ANO Last Admin: 05/15/17 12:34 Dose: 1 applic Pantoprazole Sodium (Protonix -) 40 mg PO DAILY CIPRIANO Last Admin: 05/16/17 10:29 Dose: 40 mg - Objective Vital Signs: Vital Signs Temperature 97.2 F L 05/16/17 10:28 Pulse Rate 81 05/16/17 10:28 Respiratory Rate 24 05/16/17 10:28 Blood Pressure 117/70 05/16/17 10:28 O2 Sat by Pulse Oximetry (%) 99 05/15/17 21:00 Constitutional: Yes: No Distress Eyes: Yes: Conjunctiva Clear Cardiovascular: Yes: Regular Rate and Rhythm, S1 Respiratory: Yes: CTA Bilaterally Gastrointestinal: Yes: Normal Bowel Sounds, Soft. No: Tenderness Edema: No Integumentary: Yes: Other (port site no erythema) Labs: CBC, BMP 05/16/17 05:30 05/16/17 05:30 Assessment/Plan Febrile neutopenia R/O neutropenic sepsis Breast ca on chemotherapy Remains febrile on meropenem Add empiric antifungal therapy Neutropenic precautions
[2017-05-16] MEDS: BUDESONIDE/FORMETEROL FUMARATE 160/4.5 mcg INHALER IH SCH (10:49)
[2017-05-16] MEDS ORDERED: CASPOFUNGIN ACETATE 70 MG in SODIUM CHLORIDE 250 ML IVPB ONE (11:00)
--- NOTE | 2017-05-16 11:25 | EKG ---
Test Reason : Blood Pressure : / mmHG Vent. Rate : 105 BPM Atrial Rate : 105 BPM P-R Int : 158 ms QRS Dur : 082 ms QT Int : 316 ms P-R-T Axes : 053 003 047 degrees QTc Int : 417 ms SINUS TACHYCARDIA OTHERWISE NORMAL ECG WHEN COMPARED WITH ECG OF 15-MAY-2017 03:13, VENT. RATE HAS DECREASED BY 64 BPM SINUS RHYHTM HAS REPLACED SVT Confirmed by GIRISH TREJO MD ([id number]) on 05/16/2017 11:24:52 AM Referred By: Confirmed By:GIRISH TREJO MD
--- NOTE | 2017-05-16 11:33 | PN ---
Teaching Attending Note Name of Resident: Cesar Scanlon ATTENDING PHYSICIAN STATEMENT I saw and evaluated the patient. I reviewed the resident's note and discussed the case with the resident. I agree with the resident's findings and plan as documented. SUBJECTIVE: Pt seen and examined in the ICU. Febrile overnight to 102 but remains in sinus rhythm. OBJECTIVE: Last Vital Signs Temp Pulse Resp BP Pulse Ox 97.2 F L 81 24 117/70 97 05/16/17 10:28 05/16/17 10:28 05/16/17 10:28 05/16/17 10:28 05/16/17 10:25 Intake & Output 05/13/17 05/14/17 05/15/17 05/16/17 23:59 23:59 23:59 23:59 Intake Total 08093 3737.5 1490 1100 Output Total 3 1 Balance 60333 3734.5 1489 1100 Gen: NAD at rest Heart: RRR Lung: decreased breath sounds at the bases Abd: soft, nontender Ext: no edema CBC, BMP 05/16/17 05:30 05/16/17 05:30 Active Medications Acetaminophen (Tylenol -) 650 mg PO Q6H PRN PRN Reason: FEVER OR PAIN Last Admin: 05/15/17 19:42 Dose: 650 mg Albuterol Sulfate (Ventolin Hfa Inhaler -) 2 puff IH Q4H PRN PRN Reason: SHORT OF BREATH/WHEEZING Budesonide/Formoterol Fumarate (Symbicort 160/4.5mcg -) 1 puff IH DAILY CIPRIANO Last Admin: 05/16/17 10:49 Dose: 1 puff Diltiazem HCl (Cardizem -) 30 mg PO BID [facility]IP[facility]ANO Last Admin: 05/15/17 17:03 Dose: 30 mg Enoxaparin Sodium (Lovenox -) 40 mg SQ DAILY [facility]IP[facility]ANO Last Admin: 05/16/17 10:29 Dose: 40 mg Diltiazem HCl 125 mg/ Dextrose 125 mls @ 5 mls/hr IVPB TITR CIPRIANO; 5 MG/HR PRN Reason: Protocol Last Admin: 05/16/17 07:28 Dose: Not Given Meropenem 1 gm/ Dextrose 100 mls @ 200 mls/hr IVPB Q8H-IV [facility]IPRIANO Last Admin: 05/16/17 10:29 Dose: 200 mls/hr Sodium Chloride (Normal Saline -) 1,000 mls @ 75 mls/hr IV ASDIR [facility] Last Admin: 05/15/17 17:08 Dose: 75 mls/hr Caspofungin 70 mg/ Sodium (Chloride) 250 mls @ 250 mls/hr IVPB ONCE ONE Stop: 05/16/17 11:59 Caspofungin 50 mg/ Sodium (Chloride) 250 mls @ 250 mls/hr IVPB DAILY [facility] Ibuprofen (Motrin -) 600 mg PO Q8H PRN PRN Reason: FEVER Last Admin: 05/15/17 21:07 Dose: 600 mg Metoprolol Tartrate (Lopressor -) 25 mg PO BID [facility] Last Admin: 05/15/17 21:07 Dose: 25 mg Nystatin (Nystop Powder -) 1 applic TP DAILY [facility] Last Admin: 05/15/17 12:34 Dose: 1 applic Pantoprazole Sodium (Protonix -) 40 mg PO DAILY [facility] Last Admin: 05/16/17 10:29 Dose: 40 mg ASSESSMENT AND PLAN: SVT/Rapid Atrial Fibrillation/Flutter now in sinus rhythm Neutropenic Sepsis Breast Ca Lactic Acidosis resolved Anemia Asthma - continue antibiotics per ID - f/u cultures - IVF - continue metoprolol - continue hydrocortisone - monitor CBC - filgrastim per oncology - DVT prophylaxis - can monitor on telemetry
[2017-05-16] MEDS: dilTIAZem HCL 30 MG TABLET (FP) PO SCH ×2 (11:58→22:01)
[2017-05-16] MEDS: METOPROLOL TARTRATE 25 MG TABLET (FP) PO SCH ×2 (11:58→22:01)
[2017-05-16] MEDS: SODIUM CHLORIDE 1,000 ML IV SCH ×2 (12:00→22:02)
[2017-05-16] MEDS: NYSTATIN POWDER 100,000 UNITS/GM - 15 GM TOPICAL POWDER TP SCH (12:28)
[2017-05-16] MEDS: IBUPROFEN 600 MG TABLET (FP) PO PRN (15:09)
--- NOTE | 2017-05-16 15:42 | PN ---
Progress Note, Physician History of Present Illness: Patient seen and examined in the ICU. Patient feeling much better and has been afebrile in the ICU. No new complaints - Current Medication List Current Medications: Active Medications Acetaminophen (Tylenol -) 650 mg PO Q6H PRN PRN Reason: FEVER OR PAIN Last Admin: 05/15/17 19:42 Dose: 650 mg Albuterol Sulfate (Ventolin Hfa Inhaler -) 2 puff IH Q4H PRN PRN Reason: SHORT OF BREATH/WHEEZING Budesonide/Formoterol Fumarate (Symbicort 160/4.5mcg -) 1 puff IH DAILY [facility] Last Admin: 05/16/17 10:49 Dose: 1 puff Diltiazem HCl (Cardizem -) 30 mg PO BID [facility] Last Admin: 05/16/17 11:58 Dose: 30 mg Enoxaparin Sodium (Lovenox -) 40 mg SQ DAILY [facility] Last Admin: 05/16/17 10:29 Dose: 40 mg Diltiazem HCl 125 mg/ Dextrose 125 mls @ 5 mls/hr IVPB TITR CIPRIANO; 5 MG/HR PRN Reason: Protocol Last Admin: 05/16/17 07:28 Dose: Not Given Meropenem 1 gm/ Dextrose 100 mls @ 200 mls/hr IVPB Q8H-IV [facility] Last Admin: 05/16/17 10:29 Dose: 200 mls/hr Sodium Chloride (Normal Saline -) 1,000 mls @ 75 mls/hr IV ASDIR [facility] Last Admin: 05/16/17 12:00 Dose: Not Given Caspofungin 50 mg/ Sodium (Chloride) 250 mls @ 250 mls/hr IVPB DAILY [facility] Ibuprofen (Motrin -) 600 mg PO Q8H PRN PRN Reason: FEVER Last Admin: 05/16/17 15:09 Dose: 600 mg Metoprolol Tartrate (Lopressor -) 25 mg PO BID [facility] Last Admin: 05/16/17 11:58 Dose: 25 mg Nystatin (Nystop Powder -) 1 applic TP DAILY [facility] Last Admin: 05/16/17 12:28 Dose: 1 applic Pantoprazole Sodium (Protonix -) 40 mg PO DAILY [facility] Last Admin: 05/16/17 10:29 Dose: 40 mg - Objective Vital Signs: Vital Signs Temperature 99.3 F 05/16/17 14:00 Pulse Rate 95 H 05/16/17 14:00 Respiratory Rate 18 05/16/17 14:00 Blood Pressure 137/76 05/16/17 14:00 O2 Sat by Pulse Oximetry (%) 97 05/16/17 10:25 Labs: CBC, BMP 05/16/17 05:30 05/16/17 05:30 Problem List - Problems (1) Neutropenia Code(s): D70.9 - NEUTROPENIA, UNSPECIFIED Assessment/Plan 56 YO F w/ PMH breast ca s/p 2 rounds of chemo admitted for neutropenic fever. Patient transferred to the ICU w/ run of atrial flutter on the floors. Neuro: -A&Ox3 Pulmonary: -PMH asthma -standing and PRN nebs -solumedrol 50mg IVPB Q6H Cardio: -patient with run of Atrial flutter on the floors -patient converted to NSR on cardizem GTT -lopressor 25 BID PO -cardizem 30 BID Prophylaxsis: -Protonix 40mg PO daily -patient on lovenox 40mg SQ Hematology: -Neutropenic fever -meropenem 1gm Q8H -caspofungin 50 mg daily FEN: -no indication for fluids at this time -monitor lytes -neutropenic diet Dispo: -Patient is stable for transfer to telemetry floor -critical care time 35 mins
--- NOTE | 2017-05-16 17:46 | PN ---
Physical Exam: SUBJECTIVE: Patient seen and examined in ICU. States she was feeling great and more herself, slept last night and after lunch started feeling bad with fever, chills, and sweating. Events: - Elevated trop 0.25 last night - Fever tmax 103.1->ibuprofen OBJECTIVE: Vital Signs Period Temp Pulse Resp BP Sys/Lerner Pulse Ox Last 24 Hr 97.2 F-102.8 F 64-97 17-24 100-142/60-86 97-99 PE Gen: flushed appearing Neuro: alert, awake, cn 2-12intact Pulm: dyspnea with conversation, clear anteriorly, chest port CDI CV: s1 s2 tachycardia Abd: s nt nd +bs Ext: +1 pitting le edema Laboratory Results - last 24 hr 05/15/17 05/16/17 05/16/17 19:15 05:30 05:30 WBC 3.1 L RBC 3.32 L Hgb 9.6 L D Hct 27.6 L MCV 83.0 MCH 28.8 MCHC 34.7 RDW 17.7 H Plt Count 167 D MPV 9.2 Neutrophils % Y Neutrophils % (Manual) 5 L D Band Neuts % (Manual) 3 D Lymphocytes % Y Lymphocytes % (Manual) 41 H D Monocytes % (Manual) 41 H* Eosinophils % (Manual) 1 Myelocytes % (Man) 4 H D Nucleated RBC % 3 H Platelet Estimate Adequate Sodium 141 Potassium 4.2 D Chloride 104 Carbon Dioxide 29 Anion Gap 8 BUN 8 D Creatinine 0.3 L D Creat Clearance w eGFR > 60 Random Glucose 155 H Calcium 8.4 L Phosphorus 2.7 D Magnesium 2.2 D Total Bilirubin 0.7 AST 26 D ALT 17 Alkaline Phosphatase 65 Creatine Kinase 50 Troponin I 0.25 H Total Protein 5.3 L Albumin 2.6 L Active Medications Generic Name Dose Route Start Last Admin Trade Name Freq PRN Reason Stop Dose Admin Acetaminophen 650 mg 05/15/17 08:25 05/15/17 19:42 Tylenol - PO 650 mg Q6H PRN Administration FEVER OR PAIN Albuterol Sulfate 2 puff 05/15/17 08:25 Ventolin Hfa Inhaler - IH Q4H PRN SHORT OF BREATH/WHEEZING Budesonide/Formoterol Fumarate 1 puff 05/15/17 10:00 05/16/17 10:49 Symbicort 160/4.5mcg - IH 1 puff DAILY [facility] Administration Diltiazem HCl 30 mg 05/15/17 17:00 05/16/17 11:58 Cardizem - PO 30 mg BID [facility] Administration Enoxaparin Sodium 40 mg 05/15/17 10:00 05/16/17 10:29 Lovenox - SQ 40 mg DAILY [facility] Administration Diltiazem HCl 125 mg/ Dextrose 125 mls @ 5 mls/hr 05/15/17 06:00 05/16/17 07:28 IVPB Not Given TITR [facility] Protocol 5 MG/HR Meropenem 1 gm/ Dextrose 100 mls @ 200 mls/hr 05/15/17 10:00 05/16/17 10:29 IVPB 200 mls/hr Q8H-IV [facility] Administration Caspofungin 50 mg/ Sodium 250 mls @ 250 mls/hr 05/17/17 10:00 Chloride IVPB DAILY [facility] Sodium Chloride 1,000 mls @ 100 mls/hr 05/16/17 16:55 Normal Saline - IV ASDIR [facility] Ibuprofen 600 mg 05/15/17 20:07 05/16/17 15:09 Motrin - PO 600 mg Q8H PRN Administration FEVER Metoprolol Tartrate 25 mg 05/15/17 06:45 05/16/17 11:58 Lopressor - PO 25 mg BID [facility] Administration Nystatin 1 applic 05/15/17 10:00 05/16/17 12:28 Nystop Powder - TP 1 applic DAILY [facility] Administration Pantoprazole Sodium 40 mg 05/15/17 10:00 05/16/17 10:29 Protonix - PO 40 mg DAILY [facility] Administration Microbiology 05/12/17 12:15 Blood Culture - Preliminary Blood - Eva Cath NO GROWTH OBTAINED AFTER 96 HOURS, INCUBATION TO CONTINUE FOR 1 DAYS. 05/12/17 12:10 Blood Culture - Preliminary Blood - Peripheral Venous NO GROWTH OBTAINED AFTER 96 HOURS, INCUBATION TO CONTINUE FOR 1 DAYS. 05/15/17 12:16 Blood Culture - Preliminary Blood - Peripheral Venous NO GROWTH OBTAINED AFTER 24 HOURS, INCUBATION TO CONTINUE FOR 4 DAYS. 05/15/17 12:20 Blood Culture - Preliminary Blood - Peripheral Venous NO GROWTH OBTAINED AFTER 24 HOURS, INCUBATION TO CONTINUE FOR 4 DAYS. Assessment: 56 year old female with asthma, left breast CA s/p chemo admitted with neutropenic fever. Plan: 1. SVT/Afib/flutter - Remains in sinus tach - ECHO report shows: LVSF nrml, no wall motion abnormality, mod TR, ?prosthetic aortic valve- pt denies replacement - Cardizem 30mg BID - Metoprolol 25 BID - Thought to be transient svt/aflutter d/t persistent fevers, non cardiac in nature, leave rate controlling meds on until stable then d/c, no need for AC - Discussed above with Dr. Crum 2. Sepsis d/t likely UTI as source - Febrile - Increase fluids 100cc/hr - Start Caspofungin per ID - Continue meropenem 3. Lactic acidosis - Resolved 4. Symptomatic Anemia - s/p 2uprbc with appropriate rise 5. Neutropenic fever - Due to breast CA s/p chemo - Granix discontinued, ? cause of fevers, resume per oncology - Hydrocortisone PRN for fever 6. Asthma - Symbicort HS 7. L breast CA - s/p ACx4 dose dense, started weekly taxol 05/05 - 3rd chemo on hold 8. DVT ppx - Lovenox 40mg daily 9. Hypokalemia - Resolved Problem List - Problems (1) Breast cancer, left Code(s): C50.912 - MALIGNANT NEOPLASM OF UNSPECIFIED SITE OF LEFT FEMALE BREAST (2) Neutropenia Code(s): D70.9 - NEUTROPENIA, UNSPECIFIED Visit type - Emergency Visit Emergency Visit: Yes ED Registration Date: 05/12/17 Care time: The patient presented to the Emergency Department on the above date and was hospitalized for further evaluation of their emergent condition. - New Patient This patient is new to me today: No - Critical Care Critical Care patient: No
--- NOTE | 2017-05-16 18:17 | CONSULT ---
Consult - text type - Consultation Consultation Note: Cardiology currently asymptomatic, no specific symptoms PE: normal cardio-pulmonary exam abdomen soft no leg edema Impression: atrial flutter episode, changed to NSR with cardizem CI, digoxin, metoprolol IVP ; has stayed in NSR stable NSR currently profound neutropenia s/p chemo breast cancer meropenem day #3 anemia, low K, asthma Echocardiogram, I am told is unremarkably normal Rec: no need for A/C taper off cardizem and metoprolol, when general medical condition stabilizes
--- NOTE | 2017-05-16 21:11 | PN ---
Progress Note (short form) - Note Progress Note: PAtient seen and examined events overnight reviewed feels better overall but T spike this aftrnoon Febrile to 103 this afternoon Cor: RSR, No murmurs, No gallops Lungs: Clear to P&A Abd: Soft, Normal bowel sounds, No organomegaly Ext:No significant edema Abnormal Lab Results 05/16/17 05/16/17 05:30 05:30 WBC 3.1 L RBC 3.32 L Hgb 9.6 L D Hct 27.6 L RDW 17.7 H Neutrophils % (Manual) 5 L D Lymphocytes % (Manual) 41 H D Monocytes % (Manual) 41 H* Myelocytes % (Man) 4 H D Nucleated RBC % 3 H Creatinine 0.3 L D Random Glucose 155 H Calcium 8.4 L Total Protein 5.3 L Albumin 2.6 L A/P 56 y/o patient with triple negative, node + breast cancer , s/p ACx4 dose dense , started weekly taxol 05/05, comes in with severe neutropenia, fevers Chemotherapy induced anemia: Transfuse PRBCs given symptomatic anemia Febrile neutropenia --D12 after weekly taxol ANC slowly improving--now 248 On meropenem, discussed with ID team No obvious infectious source added caspofungin per ID ?? Myeloid reconstitution fevers/cytokine related maintenance IV fluids discussed with cardiology ---preliminary echo --normal incentive spirometer/DVT prophylaxis/PPI
[2017-05-17] MEDS ORDERED: PT OWN MED DRAWER 7, Y5N ONE ×3 (01:18→17:59)
[2017-05-17] MEDS: MEROPENEM 1 GM in DEXTROSE 5%-WATER - 100 ML IVPB SCH ×3 (01:22→18:00)
[2017-05-17] MEDS: IBUPROFEN 600 MG TABLET (FP) PO PRN ×2 (04:17→18:00)
[2017-05-17 06:53] LABS: MCH 28.6 pg (25.7-33.7); MCHC 34.1 g/dl (32.0-36.0); MEAN CELL VOLUME 83.8 fl (80-96); MEAN PLT VOLUME 9.3 fl (7.5-11.1); PLATELET COUNT 146 K/MM3 (134-434); RDW 18.8 % (11.6-15.6); WHITE BLOOD COUNT 4.5 K/mm3 (4.0-10.0)
[2017-05-17 07:21] LABS: ALBUMIN 2.4 g/dl (3.4-5.0); ANION GAP 9 (8-16); CALCIUM 7.6 mg/dL (8.5-10.1); CO2 28 mmol/L (21-32); GLUCOSE,RANDOM 143 mg/dL (74-106); MAGNESIUM 1.8 mg/dL (1.8-2.4)
[2017-05-17 07:26] LABS: ALK PHOS 68 U/L (45-117); BILIRUBIN,TOTAL 0.6 mg/dL (0.2-1.0); CREATININE 0.4 mg/dL (0.55-1.02); PHOSPHOROUS 2.4 mg/dL (2.5-4.9); SGOT/AST 26 U/L (15-37); SGPT/ALT 17 U/L (12-78)
[2017-05-17 09:05] LABS: BASOPHIL (MANUAL) 0 % (0-2.0); METAMYELOCYTE 10 % (0-2); MYELOCYTE 6 % (0-2); NUCLEATED RED BLOOD CELL 1 % (0-0); PLATELET ESTIMATE DECREASED (NORMAL); REACTIVE LYMPHOCYTES 4 % (0-80); SMUDGE CELLS FEW
[2017-05-17] MEDS: METOPROLOL TARTRATE 25 MG TABLET (FP) PO SCH ×2 (10:24→21:56)
[2017-05-17] MEDS: PANTOPRAZOLE 40 MG TABLET (FP) PO SCH (10:24)
[2017-05-17] MEDS: ENOXAPARIN NA (PORCINE) 40 MG/0.4 ML DISP.SYRIN SQ SCH (10:25)
[2017-05-17] MEDS: dilTIAZem HCL 30 MG TABLET (FP) PO SCH ×2 (10:28→21:56)
[2017-05-17] MEDS: BUDESONIDE/FORMETEROL FUMARATE 160/4.5 mcg INHALER IH SCH (10:30)
--- NOTE | 2017-05-17 10:52 | PN ---
Progress Note, Physician History of Present Illness: Awake, alert OOB in chair Offers no complaints Non toxic appearing Spiked temp 103 past 24hr WBC improved but still profoundly neutropenic Cultures thusfar negative on meropenem and empiric antifungal therapy - Current Medication List Current Medications: Active Medications Acetaminophen (Tylenol -) 650 mg PO Q6H PRN PRN Reason: FEVER OR PAIN Last Admin: 05/15/17 19:42 Dose: 650 mg Albuterol Sulfate (Ventolin Hfa Inhaler -) 2 puff IH Q4H PRN PRN Reason: SHORT OF BREATH/WHEEZING Budesonide/Formoterol Fumarate (Symbicort 160/4.5mcg -) 1 puff IH DAILY [facility] Last Admin: 05/17/17 10:30 Dose: 1 puff Diltiazem HCl (Cardizem -) 30 mg PO BID [facility] Last Admin: 05/17/17 10:28 Dose: 30 mg Enoxaparin Sodium (Lovenox -) 40 mg SQ DAILY [facility] Last Admin: 05/17/17 10:25 Dose: 40 mg Meropenem 1 gm/ Dextrose 100 mls @ 200 mls/hr IVPB Q8H-IV [facility] Last Admin: 05/17/17 10:24 Dose: 200 mls/hr Caspofungin 50 mg/ Sodium (Chloride) 250 mls @ 250 mls/hr IVPB DAILY [facility] Sodium Chloride (Normal Saline -) 1,000 mls @ 100 mls/hr IV ASDIR [facility] Last Admin: 05/16/17 22:02 Dose: 100 mls/hr Ibuprofen (Motrin -) 600 mg PO Q8H PRN PRN Reason: FEVER Last Admin: 05/17/17 04:17 Dose: 600 mg Metoprolol Tartrate (Lopressor -) 25 mg PO BID [facility] Last Admin: 05/17/17 10:24 Dose: 25 mg Nystatin (Nystop Powder -) 1 applic TP DAILY [facility] Last Admin: 05/16/17 12:28 Dose: 1 applic Pantoprazole Sodium (Protonix -) 40 mg PO DAILY [facility] Last Admin: 05/17/17 10:24 Dose: 40 mg - Objective Vital Signs: Vital Signs Temperature 98.8 F 05/17/17 10:00 Pulse Rate 76 05/17/17 10:00 Respiratory Rate 22 05/17/17 10:00 Blood Pressure 134/74 05/17/17 10:00 O2 Sat by Pulse Oximetry (%) 97 05/17/17 09:00 Constitutional: Yes: No Distress Eyes: Yes: Conjunctiva Clear Cardiovascular: Yes: Regular Rate and Rhythm, S1, S2 Respiratory: Yes: CTA Bilaterally Gastrointestinal: Yes: Normal Bowel Sounds, Soft. No: Tenderness Edema: No Integumentary: Yes: Other (port site no erythema) Labs: CBC, BMP 05/17/17 05:20 05/17/17 05:20 Assessment/Plan Febrile neutopenia R/O neutropenic sepsis Breast ca on chemotherapy Remains febrile on meropenem/ cancidas WBC slowly recovering Neutropenic precautions
[2017-05-17] MEDS: CASPOFUNGIN ACETATE 50 MG in SODIUM CHLORIDE 250 ML IVPB SCH (11:00)
[2017-05-17] MEDS: NYSTATIN POWDER 100,000 UNITS/GM - 15 GM TOPICAL POWDER TP SCH (11:25)
--- NOTE | 2017-05-17 12:57 | PN ---
Teaching Attending Note Name of Resident: Cesar Scanlon ATTENDING PHYSICIAN STATEMENT I saw and evaluated the patient. I reviewed the resident's note and discussed the case with the resident. I agree with the resident's findings and plan as documented. SUBJECTIVE: Pt seen and examined in the ICU. Had fever to 103 yesterday. Some shortness of breath during febrile episode but since resolved. No chest pain or palpitations. No arrhythmias noted. OBJECTIVE: Last Vital Signs Temp Pulse Resp BP Pulse Ox 98.7 F 70 19 133/74 97 05/17/17 11:00 05/17/17 12:00 05/17/17 12:00 05/17/17 12:00 05/17/17 09:00 Intake & Output 05/14/17 05/15/17 05/16/17 05/17/17 23:59 23:59 23:59 23:59 Intake Total 3737.5 1490 2650 710 Output Total 3 1 Balance 3734.5 1489 2650 710 Gen: NAD at rest Heart: RRR Lung: decreased breath sounds at the bases Abd: soft, nontender Ext: no edema CBC, BMP 05/17/17 05:20 05/17/17 05:20 Active Medications Acetaminophen (Tylenol -) 650 mg PO Q6H PRN PRN Reason: FEVER OR PAIN Last Admin: 05/15/17 19:42 Dose: 650 mg Albuterol Sulfate (Ventolin Hfa Inhaler -) 2 puff IH Q4H PRN PRN Reason: SHORT OF BREATH/WHEEZING Budesonide/Formoterol Fumarate (Symbicort 160/4.5mcg -) 1 puff IH DAILY [facility] Last Admin: 05/17/17 10:30 Dose: 1 puff Diltiazem HCl (Cardizem -) 30 mg PO BID [facility] Last Admin: 05/17/17 10:28 Dose: 30 mg Enoxaparin Sodium (Lovenox -) 40 mg SQ DAILY [facility] Last Admin: 05/17/17 10:25 Dose: 40 mg Meropenem 1 gm/ Dextrose 100 mls @ 200 mls/hr IVPB Q8H-IV [facility] Last Admin: 05/17/17 10:24 Dose: 200 mls/hr Caspofungin 50 mg/ Sodium (Chloride) 250 mls @ 250 mls/hr IVPB DAILY [facility] Last Admin: 05/17/17 11:00 Dose: 250 mls/hr Sodium Chloride (Normal Saline -) 1,000 mls @ 100 mls/hr IV ASDIR [facility] Last Admin: 05/16/17 22:02 Dose: 100 mls/hr Ibuprofen (Motrin -) 600 mg PO Q8H PRN PRN Reason: FEVER Last Admin: 05/17/17 04:17 Dose: 600 mg Metoprolol Tartrate (Lopressor -) 25 mg PO BID [facility] Last Admin: 05/17/17 10:24 Dose: 25 mg Nystatin (Nystop Powder -) 1 applic TP DAILY [facility] Last Admin: 05/17/17 11:25 Dose: 1 applic Pantoprazole Sodium (Protonix -) 40 mg PO DAILY [facility] Last Admin: 05/17/17 10:24 Dose: 40 mg ASSESSMENT AND PLAN: SVT/Rapid Atrial Fibrillation/Flutter now in sinus rhythm Neutropenic Sepsis Breast Ca Lactic Acidosis resolved Anemia Asthma - continue antibiotics per ID - f/u cultures - IVF - continue metoprolol, cardizem - continue hydrocortisone - monitor CBC - filgrastim per oncology - DVT prophylaxis - can monitor on telemetry
--- NOTE | 2017-05-17 13:00 | PN ---
Progress Note, Physician History of Present Illness: No new complaints. Patient spiked a fever to 103 this AM and experienced chills and tachycardia as well. WBC counts have improved (4.5 today). - Current Medication List Current Medications: Active Medications Acetaminophen (Tylenol -) 650 mg PO Q6H PRN PRN Reason: FEVER OR PAIN Last Admin: 05/15/17 19:42 Dose: 650 mg Albuterol Sulfate (Ventolin Hfa Inhaler -) 2 puff IH Q4H PRN PRN Reason: SHORT OF BREATH/WHEEZING Budesonide/Formoterol Fumarate (Symbicort 160/4.5mcg -) 1 puff IH DAILY [facility] Last Admin: 05/17/17 10:30 Dose: 1 puff Diltiazem HCl (Cardizem -) 30 mg PO BID [facility] Last Admin: 05/17/17 10:28 Dose: 30 mg Enoxaparin Sodium (Lovenox -) 40 mg SQ DAILY [facility] Last Admin: 05/17/17 10:25 Dose: 40 mg Meropenem 1 gm/ Dextrose 100 mls @ 200 mls/hr IVPB Q8H-IV [facility] Last Admin: 05/17/17 10:24 Dose: 200 mls/hr Caspofungin 50 mg/ Sodium (Chloride) 250 mls @ 250 mls/hr IVPB DAILY [facility] Last Admin: 05/17/17 11:00 Dose: 250 mls/hr Sodium Chloride (Normal Saline -) 1,000 mls @ 100 mls/hr IV ASDIR [facility] Last Admin: 05/16/17 22:02 Dose: 100 mls/hr Ibuprofen (Motrin -) 600 mg PO Q8H PRN PRN Reason: FEVER Last Admin: 05/17/17 04:17 Dose: 600 mg Metoprolol Tartrate (Lopressor -) 25 mg PO BID [facility] Last Admin: 05/17/17 10:24 Dose: 25 mg Nystatin (Nystop Powder -) 1 applic TP DAILY [facility] Last Admin: 05/17/17 11:25 Dose: 1 applic Pantoprazole Sodium (Protonix -) 40 mg PO DAILY [facility] Last Admin: 05/17/17 10:24 Dose: 40 mg - Objective Vital Signs: Vital Signs Temperature 98.7 F 05/17/17 11:00 Pulse Rate 70 05/17/17 12:00 Respiratory Rate 19 05/17/17 12:00 Blood Pressure 133/74 05/17/17 12:00 O2 Sat by Pulse Oximetry (%) 97 05/17/17 09:00 Constitutional: Yes: Well Nourished, No Distress, Calm HENT: Yes: Atraumatic, Normocephalic Neck: Yes: Supple, Trachea Midline Cardiovascular: Yes: Regular Rate and Rhythm Respiratory: Yes: Regular, CTA Bilaterally Gastrointestinal: Yes: Normal Bowel Sounds, Soft. No: Tenderness Neurological: Yes: Alert, Oriented, Cran Nerves II-XII Intact Psychiatric: Yes: Alert, Oriented Labs: CBC, BMP 05/17/17 05:20 05/17/17 05:20 Problem List - Problems (1) Neutropenia Code(s): D70.9 - NEUTROPENIA, UNSPECIFIED Assessment/Plan 56 YO F w/ PMH breast ca s/p 2 rounds of chemo admitted for neutropenic fever. Patient transferred to the ICU w/ run of atrial flutter on the floors. Neuro: -A&Ox3 Pulmonary: -PMH asthma -standing and PRN nebs -monitor off steroids Cardio: -patient with run of Atrial flutter on the floors -patient remains in NSR off of cardizem GTT -lopressor 25 BID PO -cardizem 30 BID Prophylaxsis: -Protonix 40mg PO daily -patient on lovenox 40mg SQ Hematology: -Neutropenic fever; counts increasing -fever this am likely 2/2 increasing white count -meropenem 1gm Q8H -caspofungin 50 mg daily FEN: -no indication for fluids at this time -phosphorous 2.4, will replete -neutropenic diet Dispo: -Patient is stable for transfer to telemetry floor -critical care time 35 mins
[2017-05-17] MEDS: NAPH,MB-DB/K PH,MBDB POWDER PACKET PO SCH ×2 (15:00→21:56)
[2017-05-17] MEDS: SODIUM CHLORIDE 1,000 ML IV SCH (16:00)
--- NOTE | 2017-05-17 16:27 | PN ---
Physical Exam: SUBJECTIVE: Patient seen and examined oob to chair. Last fever episode was yesterday afternoon. Presently feels well. OBJECTIVE: Vital Signs Period Temp Pulse Resp BP Sys/Lerner Pulse Ox Last 24 Hr 98 F-99.8 F 59-89 18- 107-146/61-83 97-97 GENERAL: The patient is awake, alert, and fully oriented, in no acute distress. HEAD: Normal with no signs of trauma. EYES: PERRL, extraocular movements intact, sclera anicteric, conjunctiva clear. No ptosis. LUNGS: Breath sounds equal, clear to auscultation bilaterally, no wheezes, no crackles, no accessory muscle use. HEART: Regular rate and rhythm, S1, S2 without murmur, rub or gallop. ABDOMEN: Soft, nontender, nondistended, normoactive bowel sounds, no guarding, no rebound EXTREMITIES: 2+ pulses, warm, well-perfused, no edema. NEUROLOGICAL: Cranial nerves II through XII grossly intact. Normal speech, gait not observed. Laboratory Results - last 24 hr 05/17/17 05/17/17 05:20 05:20 WBC 4.5 D RBC 3.15 L Hgb 9.0 L Hct 26.3 L MCV 83.8 MCH 28.6 MCHC 34.1 RDW 18.8 H Plt Count 146 MPV 9.3 Neutrophils % (Manual) 3 L Band Neuts % (Manual) 15 H D Lymphocytes % (Manual) 40 Monocytes % (Manual) 19 H* Eosinophils % (Manual) 3 D Basophils % (Manual) 0 Myelocytes % (Man) 6 H D Nucleated RBC % 1 H Smudge Cells Few Platelet Estimate Decreased Sodium 140 Potassium 3.6 Chloride 103 Carbon Dioxide 28 Anion Gap 9 BUN 6 L D Creatinine 0.4 L D Creat Clearance w eGFR > 60 Random Glucose 143 H Calcium 7.6 L Phosphorus 2.4 L Magnesium 1.8 Total Bilirubin 0.6 AST 26 ALT 17 Alkaline Phosphatase 68 Total Protein 5.0 L Albumin 2.4 L Active Medications Generic Name Dose Route Start Last Admin Trade Name Freq PRN Reason Stop Dose Admin Acetaminophen 650 mg 05/15/17 08:25 05/15/17 19:42 Tylenol - PO 650 mg Q6H PRN Administration FEVER OR PAIN Albuterol Sulfate 2 puff 05/15/17 08:25 Ventolin Hfa Inhaler - IH Q4H PRN SHORT OF BREATH/WHEEZING Budesonide/Formoterol Fumarate 1 puff 05/15/17 10:00 05/17/17 10:30 Symbicort 160/4.5mcg - IH 1 puff DAILY [facility] Administration Diltiazem HCl 30 mg 05/15/17 17:00 05/17/17 10:28 Cardizem - PO 30 mg BID [facility] Administration Enoxaparin Sodium 40 mg 05/15/17 10:00 05/17/17 10:25 Lovenox - SQ 40 mg DAILY [facility] Administration Meropenem 1 gm/ Dextrose 100 mls @ 200 mls/hr 05/15/17 10:00 05/17/17 10:24 IVPB 200 mls/hr Q8H-IV [facility] Administration Caspofungin 50 mg/ Sodium 250 mls @ 250 mls/hr 05/17/17 10:00 05/17/17 11:00 Chloride IVPB 250 mls/hr DAILY [facility] Administration Sodium Chloride 1,000 mls @ 100 mls/hr 05/16/17 16:55 05/16/17 22:02 Normal Saline - IV 100 mls/hr ASD[facility] Administration Ibuprofen 600 mg 05/15/17 20:07 05/17/17 04:17 Motrin - PO 600 mg Q8H PRN Administration FEVER Metoprolol Tartrate 25 mg 05/15/17 06:45 05/17/17 10:24 Lopressor - PO 25 mg BID [facility] Administration Nystatin 1 applic 05/15/17 10:00 05/17/17 11:25 Nystop Powder - TP 1 applic DAILY [facility] Administration Pantoprazole Sodium 40 mg 05/15/17 10:00 05/17/17 10:24 Protonix - PO 40 mg DAILY [facility] Administration Potassium Phos/Sodium Phos 1 packet 05/17/17 14:00 05/17/17 15:00 Phos-Nak Packet - PO 1 packet TID [facility] Administration ASSESSMENT/PLAN 56 year-old female with a significant PMH of left breast cancer (01/2017) s/p dose-dense adriamycin/cytoxan, started weekly taxol 05/05. Admitted with febrile neutropenia. Hospital course complicated by episode of SVT/afib/aflutter. Left breast cancer --on taxol therapy Febrile neutropenia --WBC improved to 4.5k; ANC 810 today --last fever spike 24 hours ago --continue meropenem, caspofungin --oncology and ID following Anemia --chemotherapy-induced --transfused 2U PRBC on 05/15 --h/h stable SVT/afib/aflutter --presently in sinus rhythm --no events overnight on telemetry --continue metoprolol, diltiazem F/E/N Fluids: NS @ 100mL/hr Electrolytes: replete as indicated Nutrition: neutropenic diet with Ensure Enlive DVT prophylaxis: lovenox, oob, ambulation Dispo: continues to require ICU level care. Full Code. Visit type - Emergency Visit Emergency Visit: Yes ED Registration Date: 05/12/17 Care time: The patient presented to the Emergency Department on the above date and was hospitalized for further evaluation of their emergent condition. - New Patient This patient is new to me today: Yes Date on this admission: 05/17/17 - Critical Care Critical Care patient: Yes Total Critical Care Time (in minutes): 35 Critical Care Statement: The care of this patient involved high complexity decision making to prevent further life threatening deterioration of the patient 's condition and/or to evaluate & treat vital organ system(s) failure or risk of failure.
--- NOTE | 2017-05-17 19:49 | PN ---
Progress Note (short form) - Note Progress Note: Patient seen and examined Febrile to 101.2 with associated chills. ANC 800+. Showing signs of bone marrow recovery. ROS- some headaches, no diplopia, epistasis, dysphagia, chest pain, some SOB on exertion, no GI complaints, some discomfort left lateral thigh, no dysuria Last Vital Signs Temp Pulse Resp BP Pulse Ox 99.6 F 87 16 144/70 98 05/17/17 19:00 05/17/17 19:00 05/17/17 19:00 05/17/17 19:00 05/17/17 18:16 HEENT: AIXA, EOM Intact Oropharynx: No thrush, No mucositis Neck: Supple Cor: RSR, No murmurs, No gallops Lungs: Clear to P&A Abd: Soft, Normal bowel sounds, No organomegaly Ext:No significant edema, SCD Skin: No rashes, Integument intact CBC, BMP 05/17/17 05:20 05/17/17 05:20 Current Medications Generic Name Dose Route Start Last Admin Trade Name Freq PRN Reason Stop Dose Admin Acetaminophen 650 mg 05/15/17 08:25 05/15/17 19:42 Tylenol - PO 650 mg Q6H PRN Administration FEVER OR PAIN Albuterol Sulfate 2 puff 05/15/17 08:25 Ventolin Hfa Inhaler - IH Q4H PRN SHORT OF BREATH/WHEEZING Budesonide/Formoterol Fumarate 1 puff 05/15/17 10:00 05/17/17 10:30 Symbicort 160/4.5mcg - IH 1 puff DAILY [facility] Administration Diltiazem HCl 30 mg 05/15/17 17:00 05/17/17 10:28 Cardizem - PO 30 mg BID [facility] Administration Enoxaparin Sodium 40 mg 05/15/17 10:00 05/17/17 10:25 Lovenox - SQ 40 mg DAILY [facility] Administration Meropenem 1 gm/ Dextrose 100 mls @ 200 mls/hr 05/15/17 10:00 05/17/17 18:00 IVPB 200 mls/hr Q8H-IV [facility] Administration Caspofungin 50 mg/ Sodium 250 mls @ 250 mls/hr 05/17/17 10:00 05/17/17 11:00 Chloride IVPB 250 mls/hr DAILY [facility] Administration Sodium Chloride 1,000 mls @ 100 mls/hr 05/16/17 16:55 05/17/17 16:00 Normal Saline - IV 100 mls/hr ASD[facility] Administration Ibuprofen 600 mg 05/15/17 20:07 05/17/17 18:00 Motrin - PO 600 mg Q8H PRN Administration FEVER Metoprolol Tartrate 25 mg 05/15/17 06:45 05/17/17 10:24 Lopressor - PO 25 mg BID [facility] Administration Nystatin 1 applic 05/15/17 10:00 05/17/17 11:25 Nystop Powder - TP 1 applic DAILY [facility] Administration Pantoprazole Sodium 40 mg 05/15/17 10:00 05/17/17 10:24 Protonix - PO 40 mg DAILY [facility] Administration Potassium Phos/Sodium Phos 1 packet 05/17/17 14:00 05/17/17 15:00 Phos-Nak Packet - PO 1 packet TID [facility] Administration Impression: Febrile neutropenia secondary to taxol chemotherapy. Signs of BM recovery ANC about 800 Anemia Plan: antibiotics per I.D. / antifungals per I.D. Continued monitoring of CBC
[2017-05-18 07:27] LABS: MCHC 33.2 g/dl (32.0-36.0); MEAN CELL VOLUME 84.4 fl (80-96); MEAN PLT VOLUME 9.1 fl (7.5-11.1); PLATELET COUNT 119 K/MM3 (134-434); WHITE BLOOD COUNT 7.8 K/mm3 (4.0-10.0)
[2017-05-18 07:28] LABS: ALBUMIN 2.4 g/dl (3.4-5.0); ALK PHOS 77 U/L (45-117); ANION GAP 7 (8-16); BILIRUBIN,TOTAL 0.5 mg/dL (0.2-1.0); CALCIUM 7.9 mg/dL (8.5-10.1); CO2 31 mmol/L (21-32); CREATININE 0.4 mg/dL (0.55-1.02); GLUCOSE,RANDOM 147 mg/dL (74-106); LDH 430 U/L (84-246); SGOT/AST 29 U/L (15-37); SGPT/ALT 25 U/L (12-78); TOT PROT 5.2 g/dl (6.4-8.2)
[2017-05-18 07:28] LABS: ACTIVATED PTT 24.3 SECONDS (26.9-34.4); INR 1.09 (0.82-1.09)
--- NOTE | 2017-05-18 09:09 | PN ---
Teaching Attending Note Name of Resident: Johnny Reich ATTENDING PHYSICIAN STATEMENT I saw and evaluated the patient. I reviewed the resident's note and discussed the case with the resident. I agree with the resident's findings and plan as documented. SUBJECTIVE: feels well, low grade fever this am no complaints OBJECTIVE: Vital Signs Period Temp Pulse Resp BP Sys/Lerner Pulse Ox Last 24 Hr 98.7 F-101.2 F 63-87 16-23 112-146/63-83 97-98 no thrush no rash no oral lesions cor-rrr lungs clear abd soft,nt ext no edema CBC, BMP 05/18/17 06:00 05/18/17 05:00 Microbiology 05/12/17 12:15 Blood - Eva Cath Blood Culture - Final NO GROWTH AFTER 5 DAYS INCUBATION 05/12/17 12:10 Blood - Peripheral Venous Blood Culture - Final NO GROWTH AFTER 5 DAYS INCUBATION 05/15/17 12:16 Blood - Peripheral Venous Blood Culture - Preliminary NO GROWTH OBTAINED AFTER 48 HOURS, INCUBATION TO CONTINUE FOR 3 DAYS. 05/15/17 12:20 Blood - Peripheral Venous Blood Culture - Preliminary NO GROWTH OBTAINED AFTER 48 HOURS, INCUBATION TO CONTINUE FOR 3 DAYS. 05/15/17 16:55 Urine - Urine Clean Catch Urine Culture - Final NO GROWTH OBTAINED 05/12/17 10:15 Urine - Urine Clean Catch Urine Culture - Final NO GROWTH OBTAINED cxray no infiltrate ASSESSMENT AND PLAN: neutropenic fevers- neutropenia improved s/p chemo for breast cancer blood cultures negative continue cancidas, de-escalate meropenem to levaquin ANC- svt/afib
[2017-05-18] MEDS ORDERED: PT OWN MED DRAWER 7, Y5N ONE (09:16)
[2017-05-18] MEDS: MEROPENEM 1 GM in DEXTROSE 5%-WATER - 100 ML IVPB SCH (09:19)
[2017-05-18] MEDS: dilTIAZem HCL 30 MG TABLET (FP) PO SCH ×2 (09:20→21:24)
[2017-05-18] MEDS: METOPROLOL TARTRATE 25 MG TABLET (FP) PO SCH ×2 (09:20→21:23)
[2017-05-18] MEDS: ENOXAPARIN NA (PORCINE) 40 MG/0.4 ML DISP.SYRIN SQ SCH (09:21)
[2017-05-18] MEDS: PANTOPRAZOLE 40 MG TABLET (FP) PO SCH (09:21)
[2017-05-18] MEDS: IBUPROFEN 600 MG TABLET (FP) PO PRN (09:21)
[2017-05-18 09:25] LABS: MYELOCYTE 3 % (0-2); NUCLEATED RED BLOOD CELL 1 % (0-0); PLATELET ESTIMATE DECREASED (NORMAL); TOTAL CELLS COUNTED 100
--- NOTE | 2017-05-18 09:52 | PN ---
Physical Exam: SUBJECTIVE: Patient seen and examined. Feels like she has a fever, chills, mild headache. OBJECTIVE: Vital Signs Period Temp Pulse Resp BP Sys/Lerner Pulse Ox Last 24 Hr 98.7 F-101.2 F 63-88 16- 112-153/63-83 97-98 GENERAL: The patient is awake, alert, and fully oriented, in no acute distress. HEAD: Normal with no signs of trauma. EYES: PERRL, extraocular movements intact, sclera anicteric, conjunctiva clear. No ptosis. LUNGS: Breath sounds equal, clear to auscultation bilaterally, no wheezes, no crackles, no accessory muscle use. HEART: Regular rate and rhythm, S1, S2 without murmur, rub or gallop. ABDOMEN: Soft, nontender, nondistended, normoactive bowel sounds, no guarding, no rebound EXTREMITIES: 2+ pulses, warm, well-perfused, no edema. NEUROLOGICAL: Cranial nerves II through XII grossly intact. Normal speech, gait not observed. Laboratory Results - last 24 hr 05/14/17 05/18/17 05/18/17 14:45 05:00 05:00 WBC RBC Hgb Hct MCV MCH MCHC RDW Plt Count MPV Total Counted Neutrophils % Neutrophils % (Manual) Band Neuts % (Manual) Lymphocytes % Lymphocytes % (Manual) Monocytes % (Manual) Eosinophils % (Manual) Myelocytes % (Man) Nucleated RBC % Platelet Estimate Retic Count 1.53 H INR PTT (Actin FS) Fibrinogen Sodium 141 Potassium 3.7 Chloride 103 Carbon Dioxide 31 Anion Gap 7 L BUN 4 L D Creatinine 0.4 L Creat Clearance w eGFR > 60 Random Glucose 147 H Calcium 7.9 L Magnesium 2.0 Total Bilirubin 0.5 AST 29 ALT 25 D Alkaline Phosphatase 77 LD Total 430 H Total Protein 5.2 L Albumin 2.4 L Blood Type B NEGATIVE Antibody Screen Negative Direct Antiglob Test Crossmatch See Detail 05/18/17 05/18/17 05/18/17 05:00 06:00 06:00 WBC 7.8 D RBC 3.37 L Hgb 9.4 L Hct 28.4 L MCV 84.4 MCH 28.0 MCHC 33.2 RDW 19.0 H Plt Count 119 L MPV 9.1 Total Counted 100 Neutrophils % Y Neutrophils % (Manual) 13 L D Band Neuts % (Manual) 5 D Lymphocytes % Y Lymphocytes % (Manual) 48 H Monocytes % (Manual) 29 H* Eosinophils % (Manual) 2 Myelocytes % (Man) 3 H D Nucleated RBC % 1 H Platelet Estimate Decreased Retic Count INR 1.09 PTT (Actin FS) 24.3 L Fibrinogen 616.0 H Sodium Potassium Chloride Carbon Dioxide Anion Gap BUN Creatinine Creat Clearance w eGFR Random Glucose Calcium Magnesium Total Bilirubin AST ALT Alkaline Phosphatase LD Total Total Protein Albumin Blood Type Antibody Screen Direct Antiglob Test Negative Crossmatch Active Medications Generic Name Dose Route Start Last Admin Trade Name Freq PRN Reason Stop Dose Admin Acetaminophen 650 mg 05/15/17 08:25 05/15/17 19:42 Tylenol - PO 650 mg Q6H PRN Administration FEVER OR PAIN Albuterol Sulfate 2 puff 05/15/17 08:25 Ventolin Hfa Inhaler - IH Q4H PRN SHORT OF BREATH/WHEEZING Budesonide/Formoterol Fumarate 1 puff 05/15/17 10:00 05/17/17 10:30 Symbicort 160/4.5mcg - IH 1 puff DAILY [facility] Administration Diltiazem HCl 30 mg 05/15/17 17:00 05/18/17 09:20 Cardizem - PO 30 mg BID [facility]IP[facility]ANO Administration Enoxaparin Sodium 40 mg 05/15/17 10:00 05/18/17 09:21 Lovenox - SQ 40 mg DAILY [facility]O Administration Meropenem 1 gm/ Dextrose 100 mls @ 200 mls/hr 05/15/17 10:00 05/18/17 09:19 IVPB 200 mls/hr Q8H-IV [facility]ANO Administration Caspofungin 50 mg/ Sodium 250 mls @ 250 mls/hr 05/17/17 10:00 05/17/17 11:00 Chloride IVPB 250 mls/hr DAILY [facility]ANO Administration Sodium Chloride 1,000 mls @ 100 mls/hr 05/16/17 16:55 05/17/17 16:00 Normal Saline - IV 100 mls/hr ASDIR [facility]ANO Administration Ibuprofen 600 mg 05/15/17 20:07 05/18/17 09:21 Motrin - PO 600 mg Q8H PRN Administration FEVER Metoprolol Tartrate 25 mg 05/15/17 06:45 05/18/17 09:20 Lopressor - PO 25 mg BID [facility]O Administration Nystatin 1 applic 05/15/17 10:00 05/17/17 11:25 Nystop Powder - TP 1 applic DAILY [facility]O Administration Pantoprazole Sodium 40 mg 05/15/17 10:00 05/18/17 09:21 Protonix - PO 40 mg DAILY [facility] Administration Potassium Phos/Sodium Phos 1 packet 05/17/17 14:00 05/17/17 21:56 Phos-Nak Packet - PO 1 packet TID CIPRIANO Administration ASSESSMENT/PLAN 56 year-old female with a significant PMH of left breast cancer (01/2017) s/p dose-dense adriamycin/cytoxan, started weekly taxol 05/05. Admitted with febrile neutropenia. Hospital course complicated by episode of SVT/afib/aflutter. Left breast cancer --on taxol therapy Febrile neutropenia --WBC improved to 4.5k; ANC >1400 today --continuing to spike fevers --continue meropenem, caspofungin --oncology and ID following Anemia --chemotherapy-induced --transfused 2U PRBC on 05/15 --h/h stable SVT/afib/aflutter --presently in sinus rhythm --no events overnight on telemetry --continue metoprolol, diltiazem F/E/N Fluids: NS @ 100mL/hr Electrolytes: replete as indicated Nutrition: neutropenic diet with Ensure Enlive DVT prophylaxis: lovenox, oob, ambulation Dispo: continues to require ICU level care. Full Code. Visit type - Emergency Visit Emergency Visit: Yes ED Registration Date: 05/12/17 Care time: The patient presented to the Emergency Department on the above date and was hospitalized for further evaluation of their emergent condition. - New Patient This patient is new to me today: No - Critical Care Critical Care patient: Yes Total Critical Care Time (in minutes): 35 Critical Care Statement: The care of this patient involved high complexity decision making to prevent further life threatening deterioration of the patient 's condition and/or to evaluate & treat vital organ system(s) failure or risk of failure.
[2017-05-18] MEDS: BUDESONIDE/FORMETEROL FUMARATE 160/4.5 mcg INHALER IH SCH (10:00)
[2017-05-18] MEDS ORDERED: PANTOPRAZOLE 40 MG TABLET (FP) PO SCH (10:00)
[2017-05-18] MEDS: CASPOFUNGIN ACETATE 50 MG in SODIUM CHLORIDE 250 ML IVPB SCH (10:23)
[2017-05-18] MEDS: NYSTATIN POWDER 100,000 UNITS/GM - 15 GM TOPICAL POWDER TP SCH (10:23)
[2017-05-18] MEDS ORDERED: LEVOFLOXACIN 500 MG IVPB 100 ML IVPB SCH ×2 (10:45→15:00)
--- NOTE | 2017-05-18 11:14 | PN ---
Teaching Attending Note Name of Resident: Cesar Scanlon ATTENDING PHYSICIAN STATEMENT I saw and evaluated the patient. I reviewed the resident's note and discussed the case with the resident. I agree with the resident's findings and plan as documented. SUBJECTIVE: Pt seen and examined in the ICU. Intermittent fevers overnight. Denies shortness of breath, chest pain or palpitations. No arrhythmias noted. OBJECTIVE: Last Vital Signs Temp Pulse Resp BP Pulse Ox 99.6 F 76 20 144/75 97 05/18/17 10:00 05/18/17 10:59 05/18/17 10:59 05/18/17 10:59 05/18/17 10:00 Intake & Output 05/15/17 05/16/17 05/17/17 05/18/17 23:59 23:59 23:59 23:59 Intake Total 1490 2650 2990 Output Total 1 Balance 1489 2650 2990 Weight 253 lb Gen: NAD in chair Heart: RRR Lung: decreased breath sounds at the bases Abd: soft, nontender Ext: no edema CBC, BMP 05/18/17 06:00 05/18/17 05:00 Active Medications Acetaminophen (Tylenol -) 650 mg PO Q6H PRN PRN Reason: FEVER OR PAIN Last Admin: 05/15/17 19:42 Dose: 650 mg Albuterol Sulfate (Ventolin Hfa Inhaler -) 2 puff IH Q4H PRN PRN Reason: SHORT OF BREATH/WHEEZING Budesonide/Formoterol Fumarate (Symbicort 160/4.5mcg -) 1 puff IH DAILY [facility] Last Admin: 05/17/17 10:30 Dose: 1 puff Diltiazem HCl (Cardizem -) 30 mg PO BID [facility] Last Admin: 05/18/17 09:20 Dose: 30 mg Enoxaparin Sodium (Lovenox -) 40 mg SQ DAILY [facility] Last Admin: 05/18/17 09:21 Dose: 40 mg Caspofungin 50 mg/ Sodium (Chloride) 250 mls @ 250 mls/hr IVPB DAILY [facility] Last Admin: 05/18/17 10:23 Dose: 250 mls/hr Sodium Chloride (Normal Saline -) 1,000 mls @ 100 mls/hr IV ASDIR [facility] Last Admin: 05/17/17 16:00 Dose: 100 mls/hr Ibuprofen (Motrin -) 600 mg PO Q8H PRN PRN Reason: FEVER Last Admin: 05/18/17 09:21 Dose: 600 mg Metoprolol Tartrate (Lopressor -) 25 mg PO BID [facility] Last Admin: 05/18/17 09:20 Dose: 25 mg Nystatin (Nystop Powder -) 1 applic TP DAILY [facility] Last Admin: 05/18/17 10:23 Dose: 1 applic Pantoprazole Sodium (Protonix -) 40 mg PO DAILY [facility] Last Admin: 05/18/17 09:21 Dose: 40 mg Potassium Phos/Sodium Phos (Phos-Nak Packet -) 1 packet PO TID [facility] Last Admin: 05/17/17 21:56 Dose: 1 packet ASSESSMENT AND PLAN: SVT/Rapid Atrial Fibrillation/Flutter now in sinus rhythm Neutropenic Sepsis improving Breast Ca Lactic Acidosis resolved Anemia Asthma - continue antibiotics per ID - f/u cultures - IVF - continue metoprolol, cardizem - monitor CBC, ANC - DVT prophylaxis - can monitor on floor
--- NOTE | 2017-05-18 11:29 | PN ---
Progress Note, Physician Chief Complaint: Neutropenia History of Present Illness: No new complaints. Patient continues to spike fevers overnight (Tmax 101.2) which respond to Motrin. WBC counts continue to improve (7.8 today). Absolute neutrophil count is 1,400 today. - Current Medication List Current Medications: Active Medications Acetaminophen (Tylenol -) 650 mg PO Q6H PRN PRN Reason: FEVER OR PAIN Last Admin: 05/15/17 19:42 Dose: 650 mg Albuterol Sulfate (Ventolin Hfa Inhaler -) 2 puff IH Q4H PRN PRN Reason: SHORT OF BREATH/WHEEZING Budesonide/Formoterol Fumarate (Symbicort 160/4.5mcg -) 1 puff IH DAILY [facility] Last Admin: 05/17/17 10:30 Dose: 1 puff Diltiazem HCl (Cardizem -) 30 mg PO BID [facility] Last Admin: 05/18/17 09:20 Dose: 30 mg Enoxaparin Sodium (Lovenox -) 40 mg SQ DAILY [facility] Last Admin: 05/18/17 09:21 Dose: 40 mg Caspofungin 50 mg/ Sodium (Chloride) 250 mls @ 250 mls/hr IVPB DAILY [facility] Last Admin: 05/18/17 10:23 Dose: 250 mls/hr Sodium Chloride (Normal Saline -) 1,000 mls @ 100 mls/hr IV ASDIR [facility] Last Admin: 05/17/17 16:00 Dose: 100 mls/hr Ibuprofen (Motrin -) 600 mg PO Q8H PRN PRN Reason: FEVER Last Admin: 05/18/17 09:21 Dose: 600 mg Metoprolol Tartrate (Lopressor -) 25 mg PO BID [facility] Last Admin: 05/18/17 09:20 Dose: 25 mg Nystatin (Nystop Powder -) 1 applic TP DAILY [facility] Last Admin: 05/18/17 10:23 Dose: 1 applic Pantoprazole Sodium (Protonix -) 40 mg PO DAILY [facility] Last Admin: 05/18/17 09:21 Dose: 40 mg Potassium Phos/Sodium Phos (Phos-Nak Packet -) 1 packet PO TID [facility] Last Admin: 05/17/17 21:56 Dose: 1 packet - Objective Vital Signs: Vital Signs Temperature 99.6 F 05/18/17 10:00 Pulse Rate 76 05/18/17 10:59 Respiratory Rate 20 05/18/17 10:59 Blood Pressure 144/75 05/18/17 10:59 O2 Sat by Pulse Oximetry (%) 97 05/18/17 10:00 Constitutional: Yes: Well Nourished, No Distress, Calm HENT: Yes: Atraumatic, Normocephalic Neck: Yes: Supple, Trachea Midline Cardiovascular: Yes: Regular Rate and Rhythm, S1, S2. No: JVD, Gallop, Murmur, Rub Respiratory: Yes: Regular, CTA Bilaterally, Other (decreased breath sounds at bases) Gastrointestinal: Yes: Normal Bowel Sounds, Soft Neurological: Yes: Alert, Oriented, Cran Nerves II-XII Intact Psychiatric: Yes: Alert, Oriented Labs: CBC, BMP 05/18/17 06:00 05/18/17 05:00 INR, PTT INR 1.09 (0.82-1.09) 05/18/17 06:00 Fibrinogen 616.0 mg/dL (238-498) H 05/18/17 06:00 Problem List - Problems (1) Neutropenia Code(s): D70.9 - NEUTROPENIA, UNSPECIFIED Assessment/Plan 56 YO F w/ PMH breast ca s/p 2 rounds of chemo admitted for neutropenic fever. Patient transferred to the ICU w/ run of atrial flutter on the floors. Neuro: -A&Ox3 Pulmonary: -PMH asthma; controlled -standing and PRN nebs Cardio: -patient with run of Atrial flutter on the floors -lopressor 25 BID PO -cardizem 30 BID Prophylaxsis: -Protonix 40mg PO daily -patient on lovenox 40mg SQ Hematology: -Neutropenic fever; counts increasing -fevers likely 2/2 increasing white count -meropenem 1gm Q8H -caspofungin 50 mg daily FEN: -no indication for fluids at this time -monitor lytes -neutropenic diet Dispo: -Patient is stable for transfer to telemetry floor once hematology/oncology is in agreement -critical care time 35 mins
--- NOTE | 2017-05-18 12:06 | CONSULT ---
Consult - text type - Consultation Consultation Note: Cardiology currently asymptomatic, no specific symptoms PE: normal cardio-pulmonary exam abdomen soft no leg edema Impression: atrial flutter episode, changed to NSR with cardizem CI, digoxin, metoprolol IVP ; has stayed in NSR, borderline troponins stable NSR currently profound neutropenia s/p chemo breast cancer anemia, asthma Echocardiogram is unremarkably normal Rec: no need for A/C taper off cardizem and metoprolol, when general medical condition stabilizes
[2017-05-18] MEDS: NAPH,MB-DB/K PH,MBDB POWDER PACKET PO SCH ×2 (13:41→21:24)
[2017-05-18] MEDS: ACETAMINOPHEN 325 MG TABLET (FP) PO PRN (17:57)
--- NOTE | 2017-05-18 19:14 | PN ---
Progress Note (short form) - Note Progress Note: PAtient seen and examined Fever curve improved Feels better overall headache Last Vital Signs Temp Pulse Resp BP Pulse Ox 98.8 F 78 20 149/92 97 05/18/17 18:00 05/18/17 18:00 05/18/17 18:00 05/18/17 18:00 05/18/17 10:00 Cor: RSR, No murmurs, No gallops Lungs: Clear to P&A Abd: Soft, Normal bowel sounds, No organomegaly Ext:No significant edema Abnormal Lab Results 05/14/17 05/18/17 05/18/17 14:45 05:00 05:00 RBC Hgb Hct RDW Plt Count Neutrophils % (Manual) Lymphocytes % (Manual) Monocytes % (Manual) Myelocytes % (Man) Nucleated RBC % Retic Count 1.53 H PTT (Actin FS) Fibrinogen Anion Gap 7 L BUN 4 L D Creatinine 0.4 L Random Glucose 147 H Calcium 7.9 L LD Total 430 H Total Protein 5.2 L Albumin 2.4 L Crossmatch See Detail 05/18/17 05/18/17 06:00 06:00 RBC 3.37 L Hgb 9.4 L Hct 28.4 L RDW 19.0 H Plt Count 119 L Neutrophils % (Manual) 13 L D Lymphocytes % (Manual) 48 H Monocytes % (Manual) 29 H* Myelocytes % (Man) 3 H D Nucleated RBC % 1 H Retic Count PTT (Actin FS) 24.3 L Fibrinogen 616.0 H Anion Gap BUN Creatinine Random Glucose Calcium LD Total Total Protein Albumin Crossmatch A/P 56 y/o patient with triple negative, node + breast cancer , s/p ACx4 dose dense , started weekly taxol 05/05, comes in with severe neutropenia, fevers Febrile neutropenia --D14 after weekly taxol ANC slowly improving--now 1400 tapering antibiotics per ID team No obvious infectious source ?? Myeloid reconstitution fevers/cytokine related---improved fever curve d/c iv fluids physical therapy consult d/c planning
[2017-05-19 07:54] LABS: MCHC 33.3 g/dl (32.0-36.0); MEAN CELL VOLUME 84.1 fl (80-96); MEAN PLT VOLUME 9.1 fl (7.5-11.1); PLATELET COUNT 98 K/MM3 (134-434); RDW 19.1 % (11.6-15.6); WHITE BLOOD COUNT 6.3 K/mm3 (4.0-10.0)
[2017-05-19 08:19] LABS: ALBUMIN 2.3 g/dl (3.4-5.0); ALK PHOS 70 U/L (45-117); ANION GAP 7 (8-16); BILIRUBIN,TOTAL 0.5 mg/dL (0.2-1.0); CALCIUM 8.2 mg/dL (8.5-10.1); CO2 31 mmol/L (21-32); CREATININE 0.3 mg/dL (0.55-1.02); GLUCOSE,RANDOM 128 mg/dL (74-106); SGOT/AST 27 U/L (15-37); SGPT/ALT 28 U/L (12-78); TOT PROT 5.1 g/dl (6.4-8.2)
[2017-05-19] MEDS ORDERED: PT OWN MED DRAWER 7, Y5N ONE ×3 (08:58→09:14)
[2017-05-19] MEDS: dilTIAZem HCL 30 MG TABLET (FP) PO SCH (09:25)
[2017-05-19] MEDS: PANTOPRAZOLE 40 MG TABLET (FP) PO SCH (09:25)
[2017-05-19] MEDS: NYSTATIN POWDER 100,000 UNITS/GM - 15 GM TOPICAL POWDER TP SCH (09:25)
[2017-05-19] MEDS: METOPROLOL TARTRATE 25 MG TABLET (FP) PO SCH ×2 (09:25→21:22)
[2017-05-19] MEDS: BUDESONIDE/FORMETEROL FUMARATE 160/4.5 mcg INHALER IH SCH (09:26)
[2017-05-19] MEDS ORDERED: POTASSIUM CHLORIDE TABS 20 MEQ TABLET.ER (FP) PO SCH (09:30)
[2017-05-19 10:41] LABS: PLATELET ESTIMATE DECREASED (NORMAL)
[2017-05-19 10:43] LABS: BASOPHIL (MANUAL) 0 % (0-2.0); METAMYELOCYTE 2 % (0-2); REACTIVE LYMPHOCYTES 1 % (0-80)
[2017-05-19] MEDS ORDERED: LEVOFLOXACIN 500 MG TABLET (FP) PO SCH (11:00)
[2017-05-19] MEDS ORDERED: POTASSIUM CHLORIDE ORAL LIQUID 20 MEQ/15 ML PO ONE (11:10)
[2017-05-19] MEDS ORDERED: FUROSEMIDE 40 MG/4 ML INJECTABLE VIAL IVPUSH ONE (13:09)
--- NOTE | 2017-05-19 13:27 | PN ---
Physical Exam: SUBJECTIVE: Patient seen and examined. Offers new complaints except for a headache that she currently has. She denies cough, diarrhea, abdominal pain, dizziness and SOB. OBJECTIVE: Vital Signs Period Temp Pulse Resp BP Sys/Lerner Pulse Ox Last 24 Hr 98 F-99.1 F 60-82 18-21 123-149/71-92 88-88 GENERAL: The patient is awake, alert, and fully oriented, in no acute distress. HEAD: Normal with no signs of trauma. EYES: PERRL, extraocular movements intact, sclera anicteric, conjunctiva clear. No ptosis. ENT: Ears normal, nares patent, oropharynx clear without exudates, moist mucous membranes. NECK: supple. LUNGS: Breath sounds equal, clear to auscultation bilaterally, no wheezes, no crackles, no accessory muscle use. Heart: Regular rate and rhythm, S1, S2 without murmur, rub or gallop. ABDOMEN: Soft, nontender, nondistended, normoactive bowel sounds, no guarding, no rebound, no hepatosplenomegaly, no masses. EXTREMITIES: 2+ pulses, warm, well-perfused, B/L LE peripheral edema. PSYCH: Normal mood, normal affect. SKIN: Warm, dry, normal turgor, no rashes or lesions noted Laboratory Results - last 24 hr 05/18/17 05/19/17 05/19/17 05:00 07:45 07:45 WBC 6.3 RBC 2.97 L Hgb 8.3 L D Hct 25.0 L MCV 84.1 MCH 28.0 MCHC 33.3 RDW 19.1 H Plt Count 98 L MPV 9.1 Neutrophils % Y Neutrophils % (Manual) 30 L D Band Neuts % (Manual) 9 D Lymphocytes % Y Lymphocytes % (Manual) 25 D Monocytes % (Manual) 28 H* Eosinophils % (Manual) 5 H D Basophils % (Manual) 0 Platelet Estimate Decreased Platelet Comment No clumping noted Haptoglobin 399 H Sodium 143 Potassium 3.4 L Chloride 105 Carbon Dioxide 31 Anion Gap 7 L BUN 4 L Creatinine 0.3 L D Creat Clearance w eGFR > 60 Random Glucose 128 H Calcium 8.2 L Total Bilirubin 0.5 AST 27 ALT 28 Alkaline Phosphatase 70 Total Protein 5.1 L Albumin 2.3 L Active Medications Generic Name Dose Route Start Last Admin Trade Name Freq PRN Reason Stop Dose Admin Acetaminophen 650 mg 05/15/17 08:25 05/18/17 17:57 Tylenol - PO 650 mg Q6H PRN Administration FEVER OR PAIN Albuterol Sulfate 2 puff 05/15/17 08:25 Ventolin Hfa Inhaler - IH Q4H PRN SHORT OF BREATH/WHEEZING Budesonide/Formoterol Fumarate 1 puff 05/15/17 10:00 05/19/17 09:26 Symbicort 160/4.5mcg - IH 1 puff DAILY [facility]O Administration Diltiazem HCl 30 mg 05/15/17 17:00 05/19/17 09:25 Cardizem - PO 30 mg BID CIPRIANO Administration Ibuprofen 600 mg 05/15/17 20:07 05/18/17 09:21 Motrin - PO 600 mg Q8H PRN Administration FEVER Levofloxacin 500 mg 05/19/17 11:00 05/19/17 11:05 Levaquin - PO 500 mg DAILY@0600 CIP[facility]ANO Administration Metoprolol Tartrate 25 mg 05/15/17 06:45 05/19/17 09:25 Lopressor - PO 25 mg BID CIPRIANO Administration Nystatin 1 applic 05/15/17 10:00 05/19/17 09:25 Nystop Powder - TP 1 applic DAILY [facility]O Administration Pantoprazole Sodium 40 mg 05/15/17 10:00 05/19/17 09:25 Protonix - PO 40 mg DAILY [facility]IP[facility]O Administration ASSESSMENT/PLAN: Patient is 56 yo F with left sided breast cancer was sent by her oncologist and admitted because of a white blood cell count of 2, low-grade fever, urinary urgency and increased urinary frequency. 1) Neutropenia/Low Grade fever s/p chemo -neutropenia improved -d/c antibiotics -blood cultures negative Visit type - Emergency Visit Emergency Visit: Yes ED Registration Date: 05/12/17 Care time: The patient presented to the Emergency Department on the above date and was hospitalized for further evaluation of their emergent condition. - New Patient This patient is new to me today: No - Critical Care Critical Care patient: No
--- NOTE | 2017-05-19 15:39 | PN ---
Physical Exam: SUBJECTIVE: Patient seen and examined. Has had some SOB with walking. OBJECTIVE: Vital Signs Period Temp Pulse Resp BP Sys/Lerner Pulse Ox Last 24 Hr 98 F-99.1 F 60-82 18-20 133-149/68-92 88-88 GENERAL: The patient is awake, alert, and fully oriented, in no acute distress. HEAD: Normal with no signs of trauma. EYES: PERRL, extraocular movements intact, sclera anicteric, conjunctiva clear. No ptosis. LUNGS: Breath sounds equal, clear to auscultation bilaterally, no wheezes, no crackles, no accessory muscle use. HEART: Regular rate and rhythm, S1, S2 without murmur, rub or gallop. ABDOMEN: Soft, nontender, nondistended, normoactive bowel sounds, no guarding, no rebound EXTREMITIES: 2+ pulses, warm, well-perfused, 1+ bilateral edema from knees to feet NEUROLOGICAL: Cranial nerves II through XII grossly intact. Normal speech, gait not observed. Laboratory Results - last 24 hr 05/18/17 05/19/17 05/19/17 05:00 07:45 07:45 WBC 6.3 RBC 2.97 L Hgb 8.3 L D Hct 25.0 L MCV 84.1 MCH 28.0 MCHC 33.3 RDW 19.1 H Plt Count 98 L MPV 9.1 Neutrophils % Y Neutrophils % (Manual) 30 L D Band Neuts % (Manual) 9 D Lymphocytes % Y Lymphocytes % (Manual) 25 D Monocytes % (Manual) 28 H* Eosinophils % (Manual) 5 H D Basophils % (Manual) 0 Platelet Estimate Decreased Platelet Comment No clumping noted Haptoglobin 399 H Sodium 143 Potassium 3.4 L Chloride 105 Carbon Dioxide 31 Anion Gap 7 L BUN 4 L Creatinine 0.3 L D Creat Clearance w eGFR > 60 Random Glucose 128 H Calcium 8.2 L Total Bilirubin 0.5 AST 27 ALT 28 Alkaline Phosphatase 70 Total Protein 5.1 L Albumin 2.3 L Active Medications Generic Name Dose Route Start Last Admin Trade Name Freq PRN Reason Stop Dose Admin Acetaminophen 650 mg 05/15/17 08:25 05/18/17 17:57 Tylenol - PO 650 mg Q6H PRN Administration FEVER OR PAIN Albuterol Sulfate 2 puff 05/15/17 08:25 Ventolin Hfa Inhaler - IH Q4H PRN SHORT OF BREATH/WHEEZING Budesonide/Formoterol Fumarate 1 puff 05/15/17 10:00 05/19/17 09:26 Symbicort 160/4.5mcg - IH 1 puff DAILY [facility] Administration Diltiazem HCl 30 mg 05/15/17 17:00 05/19/17 09:25 Cardizem - PO 30 mg BID CIPRIANO Administration Ibuprofen 600 mg 05/15/17 20:07 05/18/17 09:21 Motrin - PO 600 mg Q8H PRN Administration FEVER Levofloxacin 500 mg 05/19/17 11:00 05/19/17 11:05 Levaquin - PO 500 mg DAILY@0600 CIP[facility]ANO Administration Metoprolol Tartrate 25 mg 05/15/17 06:45 05/19/17 09:25 Lopressor - PO 25 mg BID CIPRIANO Administration Nystatin 1 applic 05/15/17 10:00 05/19/17 09:25 Nystop Powder - TP 1 applic DAILY [facility]O Administration Pantoprazole Sodium 40 mg 05/15/17 10:00 05/19/17 09:25 Protonix - PO 40 mg DAILY [facility] Administration ASSESSMENT/PLAN 56 year-old female with a significant PMH of left breast cancer (01/2017) s/p dose-dense adriamycin/cytoxan, started weekly taxol 05/05/17. Admitted with febrile neutropenia. Hospital course complicated by episode of SVT/afib/ aflutter. Left breast cancer --on taxol therapy Febrile neutropenia --WBC improved to 6.3; ANC >2400 today --afebrile for 24 hours --meropenem and caspofungin d/c'd; start levofloxacin --oncology and ID following Anemia --chemotherapy-induced --transfused 2U PRBC on 05/15 --h/h stable Thrombocytopenia --discussed with Dr. Ch, will continue to monitor counts Hypoxia Bilateral lower extremity edema --satting 88% on room air and bilateral lower extremity edema --suspect volume overload from IV fluids --start Lasix IV 40mg daily --f/u CXR --pre post SVT/afib/aflutter, resolved Mild hypertension --presently in sinus rhythm --continue metoprolol, diltiazem for now --diuresis may help with BP F/E/N Fluids: PO intake adequate Electrolytes: replete as indicated Nutrition: neutropenic diet with Ensure Enlive DVT prophylaxis: lovenox stopped by heme/onc; oob, ambulation; walked 80 feet with PT Dispo: continues to require inpatient treatment. Full code. Visit type - Emergency Visit Emergency Visit: Yes ED Registration Date: 05/12/17 Care time: The patient presented to the Emergency Department on the above date and was hospitalized for further evaluation of their emergent condition. - New Patient This patient is new to me today: No - Critical Care Critical Care patient: No
--- NOTE | 2017-05-19 16:24 | PN ---
Teaching Attending Note Name of Resident: Johnny Reich ATTENDING PHYSICIAN STATEMENT I saw and evaluated the patient. I reviewed the resident's note and discussed the case with the resident. I agree with the resident's findings and plan as documented. SUBJECTIVE: Doing well Afebrile WBC improved ANC approx 2400 OBJECTIVE: OOB in chair cor S1S2 lungs clear + pedal edema ASSESSMENT AND PLAN: Febrile Neutropenia-resolved Breast ca Cultures negative D/C antibiotics Observe
--- NOTE | 2017-05-19 18:39 | CONSULT ---
Consult - text type - Consultation Consultation Note: Cardiology currently asymptomatic, no specific symptoms PE: normal cardio-pulmonary exam abdomen soft +2 leg edema Impression: atrial flutter episode, changed to NSR with cardizem CI, digoxin, metoprolol IVP ; has stayed in NSR, borderline troponins stable NSR currently profound neutropenia s/p chemo; recovering breast cancer anemia, asthma Echocardiogram is unremarkably normal Rec: no need for A/C taper off cardizem and metoprolol
[2017-05-19] MEDS ORDERED: ACETAMINOPHEN 325 MG TABLET (FP) PO ONE (19:00)
[2017-05-19] MEDS ORDERED: oxyCODONE HCL 5 MG TABLET PO ONE (19:00)
[2017-05-19] MEDS: ENOXAPARIN NA (PORCINE) 40 MG/0.4 ML DISP.SYRIN SQ SCH (19:01)
[2017-05-19] MEDS ORDERED: ALBUTEROL SO4 6.7 GM HFA INHALER IH PRN ×2 (21:49→22:11)
[2017-05-19] MEDS ORDERED: ACETAMINOPHEN 325 MG TABLET (FP) PO PRN (22:11)
--- NOTE | 2017-05-19 22:34 | PN ---
Progress Note (short form) - Note Progress Note: PAtient seen and examined Fever curve improved Feels better overall headache Last Vital Signs Temp Pulse Resp BP Pulse Ox 98.8 F 77 20 113/62 88 L 05/19/17 18:13 05/19/17 18:13 05/19/17 18:13 05/19/17 18:13 05/19/17 09:00 Cor: RSR, No murmurs, No gallops Lungs: Clear to P&A Abd: Soft, Normal bowel sounds, No organomegaly Ext: 1+ edema b/l Abnormal Lab Results 05/18/17 05/19/17 05/19/17 05:00 07:45 07:45 RBC 2.97 L Hgb 8.3 L D Hct 25.0 L RDW 19.1 H Plt Count 98 L Neutrophils % (Manual) 30 L D Monocytes % (Manual) 28 H* Eosinophils % (Manual) 5 H D Haptoglobin 399 H Potassium 3.4 L Anion Gap 7 L BUN 4 L Creatinine 0.3 L D Random Glucose 128 H Calcium 8.2 L Total Protein 5.1 L Albumin 2.3 L A/P 56 y/o patient with triple negative, node + breast cancer , s/p ACx4 dose dense , started weekly taxol 05/05, comes in with severe neutropenia, fevers Febrile neutropenia --D14 after weekly taxol ANC recovered tapering antibiotics per ID team No obvious infectious source hypoxia--? mild fluid overload d/c iv fluids lasix cxr physical therapy consult d/c planning discussed with hospitalist team
[2017-05-20 07:27] LABS: MCH 28.1 pg (25.7-33.7); MCHC 33.4 g/dl (32.0-36.0); MEAN CELL VOLUME 84.1 fl (80-96); MEAN PLT VOLUME 9.1 fl (7.5-11.1); PLATELET COUNT 110 K/MM3 (134-434); RDW 19.3 % (11.6-15.6); WHITE BLOOD COUNT 5.7 K/mm3 (4.0-10.0)
[2017-05-20] MEDS: NAPH,MB-DB/K PH,MBDB POWDER PACKET PO SCH (07:44)
[2017-05-20 07:53] LABS: ALBUMIN 2.6 g/dl (3.4-5.0); ANION GAP 9 (8-16); BILIRUBIN,TOTAL 0.7 mg/dL (0.2-1.0); CALCIUM 8.1 mg/dL (8.5-10.1); CO2 31 mmol/L (21-32); CREATININE 0.4 mg/dL (0.55-1.02); GLUCOSE,RANDOM 131 mg/dL (74-106); MAGNESIUM 2.1 mg/dL (1.8-2.4); SGOT/AST 24 U/L (15-37); SGPT/ALT 25 U/L (12-78)
[2017-05-20 07:54] LABS: ALK PHOS 74 U/L (45-117); TOT PROT 5.8 g/dl (6.4-8.2)
[2017-05-20 08:09] LABS: PLATELET ESTIMATE DECREASED (NORMAL)
[2017-05-20 08:10] LABS: BASOPHIL (MANUAL) 0 % (0-2.0); METAMYELOCYTE 8 % (0-2); MYELOCYTE 3 % (0-2); NUCLEATED RED BLOOD CELL 1 % (0-0)
[2017-05-20] MEDS ORDERED: METOPROLOL TARTRATE 25 MG TABLET (FP) PO SCH (10:00)
[2017-05-20] MEDS ORDERED: BUDESONIDE/FORMETEROL FUMARATE 160/4.5 mcg INHALER IH SCH ×2 (10:00)
[2017-05-20] MEDS ORDERED: NYSTATIN POWDER 100,000 UNITS/GM - 15 GM TOPICAL POWDER TP SCH (10:00)
[2017-05-20] MEDS ORDERED: PANTOPRAZOLE 40 MG TABLET (FP) PO SCH (10:00)
[2017-05-20 10:01] VITALS: TEMP 98.1
[2017-05-20] MEDS: ENOXAPARIN NA (PORCINE) 40 MG/0.4 ML DISP.SYRIN SQ SCH (10:35)
--- NOTE | 2017-05-20 12:39 | PN ---
Progress Note (short form) - Note Progress Note: PAtient seen and examined Fevers resolved No shortness of breath Last Vital Signs Temp Pulse Resp BP Pulse Ox 98.1 F 93 H 20 131/81 92 L 05/20/17 10:00 05/20/17 11:41 05/20/17 10:00 05/20/17 10:00 05/20/17 11:41 Cor: RSR, No murmurs, No gallops Lungs: Clear to P&A Abd: Soft, Normal bowel sounds, No organomegaly Ext: 1+ edema b/l Abnormal Lab Results 05/20/17 05/20/17 06:00 06:00 RBC 3.03 L Hgb 8.5 L Hct 25.5 L RDW 19.3 H Plt Count 110 L Neutrophils % (Manual) 34 L Myelocytes % (Man) 3 H Nucleated RBC % 1 H Potassium 3.3 L Creatinine 0.4 L D Random Glucose 131 H Calcium 8.1 L Total Protein 5.8 L Albumin 2.6 L A/P 56 y/o patient with triple negative, node + breast cancer , s/p ACx4 dose dense , started weekly taxol 05/05, came in with severe neutropenia, fevers Neutropenic fever --D15 after weekly taxol ANC recovered--2400 Fevers resolved stopped antibiotics No obvious infectious source CXr --mild congestion/edema -- improved with lasix replets potasium Sinus tach vs aflutter -- resolved HAs been taken off cardizem To f/u with cardiology as outpatient to continue metoprolol Thrombocytopenia; improved HIT --neg. d/c planning f/u in the office on Tuesday
--- NOTE | 2017-05-20 13:00 | HP ---
CHIEF COMPLAINT: PCP: HISTORY OF PRESENT ILLNESS: ER course was notable for: (1) (2) (3) Recent Travel: PAST MEDICAL HISTORY: PAST SURGICAL HISTORY: Social History: Smoking: Alcohol: Drugs: Family History: Allergies No Known Allergies Allergy (Verified 03/08/17 07:58) HOME MEDICATIONS: Home Medications Medication Instructions Recorded Loratadine [Claritin] 10 mg PO DAILY 03/01/17 Albuterol Sulfate [Proventil HFA 1 - 2 inh PO TID PRN 03/03/17 Inhaler -] Levofloxacin 500 mg Ivpb [Levaquin 100 ml IVPB DAILY bag 03/14/17 500 mg Premixed Ivpb -] Sennosides [Senna -] 2 tab PO HS PRN #0 tablet 03/14/17 Compazine 10 mg PO ASDIR 04/09/17 Budesonide/Formeterol Fumarate 2 puff IH DAILY 05/12/17 [SYMBICORT 160/4.5mcg -] Docusate Sodium [Colace -] 100 mg PO BID 05/12/17 Paclitaxel [Taxol] 0 mg IVDRIP WEEKLY 05/12/17 Pantoprazole Sodium 40 mg PO DAILY 05/12/17 REVIEW OF SYSTEMS CONSTITUTIONAL: Absent: fever, chills, diaphoresis, generalized weakness, malaise, loss of appetite, weight change HEENT: Absent: rhinorrhea, nasal congestion, throat pain, throat swelling, difficulty swallowing, mouth swelling, ear pain, eye pain, visual changes CARDIOVASCULAR: Absent: chest pain, syncope, palpitations, irregular heart rate, lightheadedness , peripheral edema RESPIRATORY: Absent: cough, shortness of breath, dyspnea with exertion, orthopnea, wheezing, stridor, hemoptysis GASTROINTESTINAL: Absent: abdominal pain, abdominal distension, nausea, vomiting, diarrhea, constipation, melena, hematochezia GENITOURINARY: Absent: dysuria, frequency, urgency, hesitancy, hematuria, flank pain, genital pain MUSCULOSKELETAL: Absent: myalgia, arthralgia, joint swelling, back pain, neck pain SKIN: Absent: rash, itching, pallor HEMATOLOGIC/IMMUNOLOGIC: Absent: easy bleeding, easy bruising, lymphadenopathy, frequent infections ENDOCRINE: Absent: unexplained weight gain, unexplained weight loss, heat intolerance, cold intolerance NEUROLOGIC: Absent: headache, focal weakness or paresthesias, dizziness, unsteady gait, seizure, mental status changes, bladder or bowel incontinence PSYCHIATRIC: Absent: anxiety, depression, suicidal or homicidal ideation, hallucinations. PHYSICAL EXAMINATION Vital Signs - 24 hr 05/19/17 05/19/17 05/19/17 13:46 18:13 21:00 Temperature 99 F 98.8 F Pulse Rate 76 77 Respiratory 20 20 Rate Blood Pressure 143/68 113/62 O2 Sat by Pulse 95 Oximetry (%) 05/19/17 05/20/17 05/20/17 22:00 00:52 06:00 Temperature 98.8 F 98.1 F 98.4 F Pulse Rate 82 68 Respiratory 20 20 Rate Blood Pressure 128/65 125/60 O2 Sat by Pulse Oximetry (%) 05/20/17 05/20/17 05/20/17 09:00 10:00 11:40 Temperature 98.1 F Pulse Rate 65 92 H Respiratory 20 Rate Blood Pressure 131/81 O2 Sat by Pulse 96 92 L Oximetry (%) 05/20/17 11:41 Temperature Pulse Rate 93 H Respiratory Rate Blood Pressure O2 Sat by Pulse 92 L Oximetry (%) GENERAL: Awake, alert, and fully oriented, in no acute distress. HEAD: Normal with no signs of trauma. EYES: Pupils equal, round and reactive to light, extraocular movements intact, sclera anicteric, conjunctiva clear. No lid lag. EARS, NOSE, THROAT: Ears normal, nares patent, oropharynx clear without exudates. Moist mucous membranes. NECK: Normal range of motion, supple without lymphadenopathy, JVD, or masses. LUNGS: Breath sounds equal, clear to auscultation bilaterally. No wheezes, and no crackles. No accessory muscle use. HEART: Regular rate and rhythm, normal S1 and S2 without murmur, rub or gallop. ABDOMEN: Soft, nontender, not distended, normoactive bowel sounds, no guarding, no rebound, no masses. No hepatomegaly or splenomegaly. MUSCULOSKELETAL: Normal range of motion at all joints. No bony deformities or tenderness. No CVA tenderness. UPPER EXTREMITIES: 2+ pulses, warm, well-perfused. No cyanosis. No clubbing. No peripheral edema. LOWER EXTREMITIES: 2+ pulses, warm, well-perfused. No calf tenderness. No peripheral edema. NEUROLOGICAL: Cranial nerves II-XII intact. Normal speech. Normal gait. PSYCHIATRIC: Cooperative. Good eye contact. Appropriate mood and affect. SKIN: Warm, dry, normal turgor, no rashes or lesions noted, normal capillary refill. Laboratory Results - last 24 hr 05/18/17 05/20/17 05/20/17 05:00 06:00 06:00 WBC 5.7 RBC 3.03 L Hgb 8.5 L Hct 25.5 L MCV 84.1 MCH 28.1 MCHC 33.4 RDW 19.3 H Plt Count 110 L MPV 9.1 Neutrophils % Y Neutrophils % (Manual) 34 L Band Neuts % (Manual) 9 Lymphocytes % Y Lymphocytes % (Manual) 36 D Monocytes % (Manual) 8 Eosinophils % (Manual) 2 Basophils % (Manual) 0 Myelocytes % (Man) 3 H Nucleated RBC % 1 H Platelet Estimate Decreased Platelet Comment No clumping noted Sodium 141 Potassium 3.3 L Chloride 101 Carbon Dioxide 31 Anion Gap 9 BUN 7 D Creatinine 0.4 L D Creat Clearance w eGFR > 60 Random Glucose 131 H Calcium 8.1 L Magnesium 2.1 Total Bilirubin 0.7 D AST 24 ALT 25 Alkaline Phosphatase 74 Total Protein 5.8 L Albumin 2.6 L Hep-Induced Plt Ab Rapid 0.272 ASSESSMENT/PLAN:
--- NOTE | 2017-05-20 13:09 | DS ---
Physical Exam: SUBJECTIVE: Patient seen and examined. SOB with walking, and lower extremity edema, both improved after lasix. OBJECTIVE: Vital Signs Period Temp Pulse Resp BP Sys/Lerner Pulse Ox Last 24 Hr 98.1 F-99 F 65-93 20-20 113-143/60-81 92-96 PHYSICAL EXAM GENERAL: The patient is awake, alert, and fully oriented, in no acute distress. HEAD: Normal with no signs of trauma. EYES: PERRL, extraocular movements intact, sclera anicteric, conjunctiva clear. No ptosis. LUNGS: Breath sounds equal, clear to auscultation bilaterally, no wheezes, no crackles, no accessory muscle use. HEART: Regular rate and rhythm, S1, S2 without murmur, rub or gallop. ABDOMEN: Soft, nontender, nondistended, normoactive bowel sounds, no guarding, no rebound EXTREMITIES: 2+ pulses, warm, well-perfused, 1+ bilateral edema from knees to feet NEUROLOGICAL: Cranial nerves II through XII grossly intact. Normal speech, gait not observed. Laboratory Results - last 24 hr 05/18/17 05/20/17 05/20/17 05:00 06:00 06:00 WBC 5.7 RBC 3.03 L Hgb 8.5 L Hct 25.5 L MCV 84.1 MCH 28.1 MCHC 33.4 RDW 19.3 H Plt Count 110 L MPV 9.1 Neutrophils % Y Neutrophils % (Manual) 34 L Band Neuts % (Manual) 9 Lymphocytes % Y Lymphocytes % (Manual) 36 D Monocytes % (Manual) 8 Eosinophils % (Manual) 2 Basophils % (Manual) 0 Myelocytes % (Man) 3 H Nucleated RBC % 1 H Platelet Estimate Decreased Platelet Comment No clumping noted Sodium 141 Potassium 3.3 L Chloride 101 Carbon Dioxide 31 Anion Gap 9 BUN 7 D Creatinine 0.4 L D Creat Clearance w eGFR > 60 Random Glucose 131 H Calcium 8.1 L Magnesium 2.1 Total Bilirubin 0.7 D AST 24 ALT 25 Alkaline Phosphatase 74 Total Protein 5.8 L Albumin 2.6 L Hep-Induced Plt Ab Rapid 0.272 HOSPITAL COURSE: Date of Admission:05/12/17 Date of Discharge: 05/20/17 56 year-old female with a significant PMH of left breast cancer (01/2017) s/p dose-dense adriamycin/cytoxan, started weekly taxol 05/05/17. Admitted with febrile neutropenia. Hospital course complicated by single episode of SVT/afib/ aflutter. Left breast cancer --on taxol therapy --will follow up with Dr. Ch next Tuesday Febrile neutropenia --WBC improved to 6.3; ANC >2400 today --afebrile for >48 hours --treated with meropenem, caspofungin, and levofloxacin; off all antibiotics at time of discharge --oncology and ID following Anemia --chemotherapy-induced --transfused 2U PRBC on 05/15 --h/h stable Thrombocytopenia --improving Hypoxia, resolved Bilateral lower extremity edema, improved --suspect volume overload from IV fluids --started Lasix IV 40mg daily x2 days with improvement --d/c with low dose lasix and potassium supplement; will follow up with Dr. Ch SVT/afib/aflutter, resolved Mild hypertension --presently in sinus rhythm --was treated with diltiazem and metoprolol; diltiazem d/c'd; remain on metoprolol for 1-2 weeks and then will follow up with cardiology for possible taper Minutes to complete discharge: 35 Discharge Summary Reason For Visit: BREAST CANCER Current Active Problems Asthma exacerbation (Acute) Breast cancer, left (Acute) Neutropenia (Acute) Condition: Improved - Instructions Diet, Activity, Other Instructions: It is important you follow up with Dr. Billingsley on Tuesday. In the meantime , be sure to take your new prescription medications as directed. Prescriptions have been sent to your pharmacy for metoprolol, lasix, and potassium. Return to the emergency department for any new or worsening symptoms. Referrals: Jing Billingsley MD [Staff Physician] - 05/24/17 10:00 am Disposition: HOME - Home Medications Comprehensive Discharge Medication List: Ambulatory Orders Loratadine [Claritin] 10 mg PO DAILY 03/01/17 Albuterol Sulfate [Proventil HFA Inhaler -] 1 - 2 inh PO TID PRN 03/03/17 Sennosides [Senna -] 2 tab PO HS PRN #0 tablet 03/14/17 Compazine 10 mg PO ASDIR 04/09/17 Budesonide/Formeterol Fumarate [SYMBICORT 160/4.5mcg -] 2 puff IH DAILY Docusate Sodium [Colace -] 100 mg PO BID 05/12/17 Paclitaxel [Taxol] 0 mg IVDRIP WEEKLY 05/12/17 Pantoprazole Sodium 40 mg PO DAILY 05/12/17 Furosemide [Lasix] 20 mg PO DAILY #14 tablet 05/20/17 Metoprolol Tartrate [Lopressor -] 25 mg PO BID #28 tablet 05/20/17 Potassium Chloride 10 meq PO DAILY #14 capsule.er 05/20/17 This patient is new to me today: No Emergency Visit: Yes ED Registration Date: 05/12/17 Care time: The patient presented to the Emergency Department on the above date and was hospitalized for further evaluation of their emergent condition. Critical Care patient: No - Discharge Referral Referred to [facility] Med P.C.: No
[2017-05-20 13:31] VITALS: BP 131/75; PULSE 67
[2017-05-20] MEDS ORDERED: FUROSEMIDE 40 MG/4 ML INJECTABLE VIAL IVPUSH SCH (13:45)
[2017-05-20] MEDS ORDERED: POTASSIUM CHLORIDE TABS 20 MEQ TABLET.ER (FP) PO ONE (13:45)
[2017-05-21 08:07] LABS: HIGH DOSE HEPARIN SRA 1 % (0-20); LOW DOSE HEPARIN SRA 1 % (0-20)
== END 2017-05-20 16:00 | disposition home or self-care (01) | DRG 809 ==
LOC: JONCCHEMO 08:00 → J7W 11:39 → JONCCHEMO 11:40 → JICU 05-15 05:15 → J7W 05-18 15:35
PROVIDERS: ADMIT Internal Medicine Hematology & Oncology; ATTEND Nurse Practitioner Acute Care
PROC: 30233N1 Transfusion of Nonautologous Red Blood Cells into Peripheral Vein, Percutaneous Approach (ICD-10-PCS; principal; 2017-05-15)
DX: D70.1 Agranulocytosis secondary to cancer chemotherapy (principal); I47.1 Supraventricular tachycardia; I48.92 Unspecified atrial flutter; J45.901 Unspecified asthma with (acute) exacerbation; E87.2 Acidosis; Z68.41 Body mass index [BMI] 40.0-44.9, adult; D64.9 Anemia, unspecified; D69.6 Thrombocytopenia, unspecified; I48.91 Unspecified atrial fibrillation; I10 Essential (primary) hypertension; E87.70 Fluid overload, unspecified; R09.02 Hypoxemia; R60.9 Edema, unspecified; E87.6 Hypokalemia; C50.912 Malignant neoplasm of unspecified site of left female breast; Z87.891 Personal history of nicotine dependence; E66.9 Obesity, unspecified; R50.81 Fever presenting with conditions classified elsewhere
CPT/HCPCS: 36415; 36430; 71010-TC; 71020-TC; 80053; 80076; 81003; 82542; 83010; 83605; 83615; 83735; 84100; 84484; 85025; 85027; 85044; 85384; 85610; 85730; 86022; 86850; 86880; 86900; 86901; 86922; 87040; 87086; 93005; 93010; 93306-TC; 94761; 97116-GP; 97161-GP; G0480; J0637; J1447; P9038; P9058

== ENCOUNTER 2017-06-09 07:06 | Day surgery (SDC) | payer OTHER, BC ==
--- NOTE | 2017-06-07 14:14 | HP ---
Admitting History and Physical - Primary Care Physician PCP: Ramy Vivar - Admission Chief Complaint: left breast cancer History of Present Illness: 56 yo female S/P neoadjuvant chemo for a triple negative poorly differentiated invasive ductal CA and positive axillary lymph node is now presenting for a left breast WE with NL, axillary lymph node NL, snbx and lympho. MRI done 2016 showed good response to the chemo with some residual enhancement noted at the site of the patient's known cancer. Patient will also undergo left mastopexy reduction. History Source: Patient Limitations to Obtaining History: No Limitations - Past Medical History Pulmonary: Yes: Asthma Gastrointestinal: Yes: Other (achalasia) - Past Surgical History Past Surgical History: Yes: Hysterectomy Additional Past Surgical History: esophageal dilatation x 2 pilonidal cyst excision myomectomy - Smoking History Smoking history: Former smoker Have you smoked in the past 12 months: No If you are a former smoker, when did you quit?: 15 YEARS AGO - Alcohol/Substance Use Hx Alcohol Use: No History of Substance Use: reports: None - Social History ADL: Independent History of Recent Travel: No Home Medications - Allergies Allergies/Adverse Reactions: Allergies Allergy/AdvReac Type Severity Reaction Status Date / Time No Known Allergies Allergy Verified 06/06/17 14:41 - Home Medications Home Medications: Ambulatory Orders Loratadine [Claritin] 10 mg PO DAILY 03/01/17 Albuterol Sulfate [Proventil HFA Inhaler -] 1 - 2 inh PO TID PRN 03/03/17 Budesonide/Formeterol Fumarate [SYMBICORT 160/4.5mcg -] 2 puff IH DAILY Pantoprazole Sodium 40 mg PO DAILY 05/12/17 Family Disease History - Family Disease History Family Disease History: CA: Grandparent (breast cancer 60s), Father (colon cancer at 86) Other Family History: paternal GM-breast 50s Review of Systems - Review of Systems Cardiovascular: reports: No Symptoms Respiratory: reports: No Symptoms Physical Examination Constitutional: Yes: Well Nourished, Calm Breast(s): Yes: Other (Moderately ptotic D-cup breasts noted. No palpable masses or adenopathy noted in the left breast. No other suspicious masses noted in the right.) Problem List - Problems (1) Breast cancer, left Code(s): C50.912 - MALIGNANT NEOPLASM OF UNSPECIFIED SITE OF LEFT FEMALE BREAST Qualifiers: Breast location: upper inner quadrant of breast Patient sex: female Assessment/Plan Left breast WE with NL, axillary LN bx with NL, snbx, lympho, possible andx and reconstruction
[2017-06-09 07:32] VITALS: BMI 41.1
[2017-06-09] MEDS ORDERED: LIDOCAINE HCL 1%, 10 MG/ML (20ML VIAL) ONE (11:48)
[2017-06-09] MEDS ORDERED: PROPOFOL 20 ML ONE ×2 (12:42→13:11)
[2017-06-09] MEDS ORDERED: MIDAZOLAM HCL 2 MG/2 ML SINGLE DOSE VIAL ONE (12:43)
[2017-06-09] MEDS ORDERED: ceFAZolin SODIUM 1 GM VIAL ONE (13:00)
[2017-06-09] MEDS ORDERED: DEXAMETHASONE SOD PHOSPHATE 4 MG/1 ML VIAL ONE (13:08)
[2017-06-09] MEDS ORDERED: ONDANSETRON 4 MG/2 ML VIAL ONE ×2 (13:08→14:59)
[2017-06-09] MEDS ORDERED: HYDROmorphone HCL/PF 1 MG/ML VIAL (FOR PYXIS CHARGING ONLY) ONE ×2 (13:46→14:29)
[2017-06-09] MEDS ORDERED: KETOROLAC TROMETHAMINE 30 MG/1 ML VIAL IVPUSH PRN (14:13)
[2017-06-09] MEDS ORDERED: ONDANSETRON 4 MG/2 ML VIAL IVPB PRN (14:13)
[2017-06-09] MEDS ORDERED: DEXTROSE 5%-0.45% SALINE 1,000 ML IV SCH (14:15)
[2017-06-09] MEDS ORDERED: ALBUTEROL SO4 6.7 GM HFA INHALER IH PRN (15:26)
[2017-06-09] MEDS ORDERED: LACTATED RINGERS SOLUTION 1,000 ML IV SCH (15:30)
[2017-06-09] MEDS ORDERED: ACETAMINOPHEN 1000 MG/100 ML VIAL (NON FORMULARY) IVPB ONE (15:30)
[2017-06-09] MEDS ORDERED: ACETAMINOPHEN INJECTION 100 ML IVPB ONE (15:30)
[2017-06-09] MEDS ORDERED: HYDROmorphone HCL CARPU-JECT 1 MG/1 ML DISP.SYRIN IVPUSH PRN (15:30)
[2017-06-09] MEDS ORDERED: HYDROmorphone *PCA* 10MG/50ML DISP.SYRIN PCA SCH (15:45)
[2017-06-09] MEDS ORDERED: PROMETHAZINE HCL 25 MG/1 ML VIAL IVPUSH PRN (16:03)
[2017-06-09] MEDS ORDERED: PROMETHAZINE HCL 25 MG/1 ML VIAL ONE (16:35)
--- NOTE | 2017-06-09 17:55 | OP ---
DATE OF OPERATION: 06/09/2017 PREOPERATIVE DIAGNOSIS: Left breast cancer, upper inner quadrants status post neoadjuvant chemotherapy. POSTOPERATIVE DIAGNOSIS: Left breast cancer, upper inner quadrants status post neoadjuvant chemotherapy. PROCEDURE: Left breast partial mastectomy with needle localization as well as left axillary sentinel lymph node biopsy with needle localization, followed by axillary lymph node dissection, and a mastopexy/reduction. ANESTHESIA: General endotracheal. PRIMARY SURGEON: Paty Redmond MD RESIDENT MEDICAL OFFICER: CHRISTINA Mcdonough PRIMARY SURGEON: For the reduction/mastopexy operation is Paty Delaney MD, with his seed analysis laboratory assistant CHRISTINA Garcia. COMPLICATIONS: None. Briefly, the patient is a 56-year-old G1, P1, postmenopausal white female with [place], [place], [place] descent. She has a family history of breast cancer with her maternal and paternal grandmothers who had breast cancer. Her father and maternal grandfather had colon cancer. The patient was found to have a density in the upper inner aspect of the left breast and underwent a mammography and ultrasound in January 2017, showing a spiculated mass measuring about 2.1 cm on ultrasound. She also had a suspicious left axillary lymph node. Core biopsies of the breast mass and axillary node came back positive for breast cancer which was an infiltrating ductal cancer which was triple negative with a Ki-67 of 40%. MRI showed localized disease. The patient underwent neoadjuvant chemotherapy with ACT and had some difficulty finishing the Taxotere. MRI after neoadjuvant chemotherapy showed a significant reduction in the size of the cancer, now measuring only 1.1 cm with the axillary lymph node with significant reduction, measuring about 0.8 mm. She had fairly ptotic D cup breasts and was advised undergoing a partial mastectomy and sentinel lymph node biopsy with possible axillary lymph node dissection. She was seen by Plastic Surgery preoperatively and chose to have a reduction mastopexy at the same sitting. She was brought in for the procedure on June 09, 2017. She underwent lymphoscintigraphy and needle localization of both the breast cancer and axillary lymph node and then was brought to the holding area at [facility]. In the holding area, site verification was made, and informed consent was obtained. She was marked preoperatively by the plastic surgeon. DESCRIPTION OF PROCEDURE: She was brought into the operating room and laid on the OR table in the supine position. Venodynes were placed on the lower extremities prior to induction. She received a gram of Ancef prior to incision. She was given general endotracheal anesthesia. Next, 3 mL of Lymhozeran blue were injected peritumorally and intradermally over the needle localization site. She had had a significant clinical response where the cancer was no longer palpable after chemotherapy. The left axillary sentinel lymph node biopsy was first performed. An incision was made just below the hair-bearing area of the left axilla, and dissection was undertaken and the breast tissue was completely removed from around the wire. The radioactive dye did not travel well into the left axilla, and there was no blue lymphatics seen either. The specimen was radiographed, and the clip was easily seen in the previous positive axillary lymph node. This node was dissected free from the surrounding fatty tissue and sent for frozen section and came back positive still for metastatic cancer in the axillary lymph node. The separate specimen was sent as lower axillary lymph nodes. At this point, the wide excision was undertaken using a reduction pattern incision which was made by Plastic Surgery. We were able to undermine the skin over the cancer and completely do a wide excision in the upper inner aspect of the left breast with widely free margins given the reduction at the same sitting. The specimen was taken all the way down to the pectoralis major muscle and removed intact with the wire in the middle of the specimen. The specimen was oriented with a long lateral/short superior suture, and specimen radiographs showed removal of the clip in question. Separate margins were then taken on the superior, inferior, medial, lateral, deep, and anterior margins with sutures marking the biopsy cavity sides, and these were all sent separately as margins. At this point, hemostasis was achieved, and the wound was copiously irrigated. At this point, Dr. Delaney performed the reduction mastopexy which will be dictated separately by Plastic Surgery. He did place a drain in the mastopexy wound. We decided to perform a lower axillary lymph node dissection given that she had neoadjuvant chemotherapy and still had positive nodes. We did a lower axillary dissection up to the axillary vein as the superior border of dissection, pectoral minor as the medial border, and the latissimus as the lateral border, and the nodes were completely clear out of the lower left axillary region. These nodes were sent separately as higher left axillary lymph nodes as specimen. Hemostasis was achieved, and the wound was copiously irrigated. The thoracodorsal and long thoracic nerves were identified and spared. The intercostal brachial nerve was also identified and spared. A separate drain was placed in the left axilla, and the axillary wound was closed using interrupted 2-0 plain suture, then interrupted 3-0 deep dermal Vicryl suture, and a running 4-0 subcuticular Biosyn suture. After the reduction mastopexy, the patient was extubated and will be recovered and admitted postoperatively for a 23-hour admit for postoperative pain and drain management. The patient will be discharged home tomorrow. All sponge and needle counts were correct at the end of the case, and estimated blood loss was about 40 mL. PATY REDMOND M.D. [id number]
[2017-06-10 06:14] VITALS: BP 143/76; PULSE 82; TEMP 98.4
[2017-06-10] MEDS ORDERED: PT OWN MED DRAWER 7, Y5N ONE (09:15)
[2017-06-10] MEDS ORDERED: BUDESONIDE/FORMETEROL FUMARATE 160/4.5 mcg INHALER IH SCH (10:00)
--- NOTE | 2017-06-10 10:44 | PN ---
Progress Note (short form) - Note Progress Note: S: Pt. resting comfortably O: VAS 3/10 A/P: pod#1 s/p left breast wide excision and sentinel node biopsy 1. Pain well controlled, nausea resolved. Continue pain meds as ordered 2. no apparent anesthetic cx
--- NOTE | 2017-06-15 13:09 | PATH ---
Surgical Pathology Report Patient Name: SHANNON SCHMITT [facility]. Rec. #: [id number] /Age/Gender: 1960 (Age: 56) / F Account: [id number] Location: [facility] Taken: 06/09/2017 Received: 06/09/2017 Reported: 06/15/2017 Physicians: Ramy Vivar M.D. Specimen(s) Received A: LEFT AXILLARY SENTINEL NODE. FS #1 B: ADDITIONAL LEFT AXILLARY LYMPH NODE CONTENTS C: LEFT BREAST WIDE EXCISION D: LEFT BREAST SUPERIOR MARGIN E: LEFT BREAST INFERIOR MARGIN F: LEFT BREAST MEDIAL MARGIN G: LEFT BREAST LATERAL MARGIN H: LEFT BREAST DEEP MARGIN I: LEFT BREAST ANTERIOR MARGIN J: LEFT HIGHER AXILLARY CONTENTS Clinical History Invasive Ca Partial mastectomy after neoadjuvant chemotherapy Intraoperative Consult Diagnosis Left axillary sentinel lymph node, frozen section: Positive for metastatic carcinoma. Tracee Centeno M.D., 06/09/17 Final Diagnosis A. AXILLARY SENTINEL LYMPH NODE, LEFT, EXCISION (FS): METASTATIC CARCINOMA INVOLVING ONE OF ONE LYMPH NODE (1/1). THE FOCUS OF METASTATIC CARCINOMA MEASURES 7 MM IN GREATEST DIMENSION (MACROMETASTASIS), AND IS PRESENT IN A BACKGROUND OF TREATMENT-RELATED CHANGES. EXTRANODAL EXTENSION IS IDENTIFIED. B. ADDITIONAL LEFT AXILLARY LYMPH NODE, EXCISION: ONE LYMPH NODE, NEGATIVE FOR METASTATIC CARCINOMA (0/1). C. BREAST, LEFT, WIDE EXCISION: INVASIVE DUCTAL CARCINOMA, POORLY DIFFERENTIATED (TUBULE SCORE: 3/3, NUCLEAR GRADE: 3/3, MITOTIC SCORE: 2/3; TOTAL JEAN SCORE: 8/9), MEASURING 1.0 CM IN GREATEST DIMENSION, MICROSCOPICALLY. (SEE NOTE) INVASIVE CARCINOMA IS PRESENT IN A BACKGROUND OF, AND WITH SURROUNDING AREAS OF DENSE FIBROSIS, CONSISTENT WITH TUMOR BED WITH PARTIAL TREATMENT-RELATED CHANGES. INVASIVE CARCINOMA COMPRISES APPROXIMATELY 50% OF THE TUMOR BED TISSUE. FOCAL DUCTAL CARCINOMA IN SITU (DCIS), CRIBRIFORM TYPE, HIGH NUCLEAR GRADE IS PRESENT ADMIXED WITH INVASIVE CARCINOMA. SURGICAL MARGINS ARE UNINVOLVED BY CARCINOMA; CARCINOMA IS AT 1.3 CM FROM THE CLOSEST (ANTERIOR) MARGIN. SEE SPECIMENS D-I FOR FINAL MARGINS. NO LYMPHOVASCULAR INVASION IS IDENTIFIED. PATHOLOGIC STAGE (ypTNM): ypT1b ypN1a. SEE ALSO INVASIVE CARCINOMA CHECKLIST BELOW. Note: The carcinoma exhibits prominent cytologic treatment-related changes including marked increase in cell size with increased cytoplasmic volume, nuclear enlargement with hyperchromasia and multinucleation along with bizarre mitotic figures. D. BREAST, LEFT, SUPERIOR MARGIN, EXCISION: BENIGN BREAST TISSUE. E. BREAST, LEFT, INFERIOR MARGIN, EXCISION: BENIGN BREAST TISSUE. F. BREAST, LEFT, MEDIAL MARGIN, EXCISION: BENIGN BREAST TISSUE. G. BREAST, LEFT, LATERAL MARGIN, EXCISION: BENIGN BREAST TISSUE. H. BREAST, LEFT, DEEP MARGIN, EXCISION: BENIGN FIBROFATTY TISSUE. I. BREAST, LEFT, ANTERIOR MARGIN, EXCISION: BENIGN FIBROFATTY TISSUE. J. HIGHER AXILLARY CONTENTS, LEFT, EXCISION: METASTATIC CARCINOMA INVOLVING ONE OF FOUR LYMPH NODES (1/4). THE FOCUS OF METASTATIC CARCINOMA MEASURES 8 MM IN GREATEST DIMENSION (MACROMETASTASIS) AND IS PRESENT IN A BACKGROUND OF TREATMENT-RELATED CHANGES. EXTRANODAL EXTENSION IS PRESENT. Comments Breast Invasive Carcinoma: Surgical Pathology Cancer Case Summary Based on AJCC/UICC TNM, 7th edition Procedure _X_ Excision with image-guided localization Lymph Node Sampling _X_ [place] lymph node(s) _X_ Axillary dissection Specimen Laterality _X_ Left Tumor Size: Size of Largest Invasive Carcinoma: 1 cm Tumor Focality _X_ Single focus of invasive carcinoma Macroscopic and Microscopic Extent of Tumor Nipple _X_ Not applicable (excisions less than total mastectomy) Ductal Carcinoma In Situ (DCIS) _X_ DCIS is present _X_ as a minor component (< 25% of tumor) Histologic Type of Invasive Carcinoma : _X_ Invasive carcinoma of no special type (ductal, not otherwise specified) Histologic Grade: ([place] Histologic Score) Tubular Differentiation _X_ Score 3 Nuclear Pleomorphism _X_ Score 3 Mitotic Rate _X_ Score 2 Overall Grade _X_ Grade 3: scores of 8 or 9 (poorly differentiated) Margins _X_ Margins uninvolved by invasive carcinoma Distance from closest margin: 1.3 cm from closest anterior margin in wide excision C. Final anterior margin I is negative for carcinoma. _X_ Margins uninvolved by DCIS Distance from closest margin: 2.0 cm from closest anterior margin in wide excision C. Final anterior margin I is negative for DCIS. Lymph-Vascular Invasion _X_ Not identified Lymph Nodes Total number of lymph nodes examined (sentinel and nonsentinel): 6 Number of sentinel lymph nodes examined: 1 Number of lymph nodes with macrometastases ( > 2 mm): 2 Number of lymph nodes with micrometastases (>0.2 mm to 2 mm and/or >200cells):0 Number of lymph nodes with isolated tumor cells (=0.2 mm and =200 cells): 0 Size of largest metastatic deposit: 8 mm Extranodal Extension _X_ Not applicable Pathologic Staging (pTNM) Primary Tumor (Invasive Carcinoma): ypT1b Regional Lymph Nodes (pN): ypN1a Biomarker Studies Results of ER and NY studies performed on this specimen (block C1) at [facility] are as follows: ER (clone [id number] mouse monoclonal antibody by [employer]): 0 % nuclear staining intensity (Negative). NY (clone16 mouse monoclonal antibody by [employer]): 0 % nuclear staining (Negative). Results of Her2 (IHC) & Ki-67 studies performed on this specimen (block C1) at [place], [place] ( [id number]) are as follows: Her2 IHC (EP3 from [employer], formerly known as [id number], using [employer] Polymer Refine detection kit): 0 (Negative). Ki67: 25-30% (Intermediate). Positive and negative controls (internal if applicable) show appropriate results. Formalin fixation and cold ischemic times are within current ASCO/CAP recommendations for ER, NY and Her2 testing. Electronically Signed Jessica Centeno M.D. Gross Description A. Received fresh labeled "left axillary sentinel lymph node," is a 1.0 x 0.8 x 0.5 cm lymph node with attached fatty tissue. The lymph node is bisected and a frozen section is performed on the lymph node. The frozen section residue is entirely submitted in one cassette. B. Received in formalin labeled "additional left axillary lymph node," is a 5.0 x 3.7 x 1.5 cm portion of yellow, lobulated adipose tissue. Sectioning reveals a 1.0 x 0.5 x 0.5 cm monsviais, irregular lymph node. The lymph node is bisected and entirely submitted in one cassette. C. Received in formalin, labeled "left breast wide excision," is a 7.5 x 5.6 x 3.8 cm. monsivais-yellow, irregular, portion of fibroadipose tissue with a needle localization wire present. There is a short suture marking the superior aspect and a long suture marking the lateral aspect, per the surgeon. There is no skin present. The specimen is inked as follows: superior and lateral blue; inferior green; medial yellow; anterior red; deep black. The specimen is serially sectioned from superior to inferior. Sectioning reveals a 1.2 x 1.0 x 0.9 cm area of firm fibrous tissue with focal hemorrhage, possibly consistent with a previous biopsy site. The focus is 1.0 cm from the anterior margin and 1.0 cm from the inferior margin. The remaining margins appear widely clear of the mass. The remaining breast parenchyma displays multifocal dense white fibrous tissue. Schedule Planning Manager sections are submitted in 11 cassettes as follows: 1-3-focus of firm fibrous tissue with anterior margin; 2-2-kzcdnbob margin; 6-7-deep margin; 8-9-fibrous tissue with lateral margin; 10-medial margin; 11-superior margin. Time to formalin fixation: 47 minutes Total formalin fixation time: Approximately 28 hours. D. Formalin labeled "left breast superior margin," is a 2.2 x 1.8 x 0.7 cm irregular portion of fibroadipose tissue with a suture marking the biopsy cavity side, per the surgeon. The new margin is inked blue and the specimen is serially sectioned. The specimen is entirely submitted in 2 cassettes. E. Received in formalin labeled "left breast inferior margin," is a 3.1 x 2.1 x 0.5 cm irregular portion of fibroadipose tissue with a suture marking the biopsy cavity side, per the surgeon. The new margin is inked blue and the specimen is serially sectioned. The specimen is entirely submitted in 3 cassettes. F. Received in formalin labeled "left breast medial margin," is a 3.0 x 2.0 x 1.2 cm irregular portion of fibroadipose tissue with a suture marking the biopsy cavity side, per the surgeon. The new margin is inked blue and the specimen is serially sectioned. The specimen is entirely submitted in 3 cassettes. G. Received in formalin labeled "left breast lateral margin," is a 2.0 x 1.8 x 0.4 cm irregular portion of fibroadipose tissue with a suture marking the biopsy cavity side, per the surgeon. The new margin is inked blue and the specimen is serially sectioned. The specimen is entirely submitted in 3 cassettes. H. Received in formalin labeled "left breast deep margin," is a 2.5 x 2.4 x 0.4 cm irregular portion of fibroadipose tissue with a suture marking the biopsy cavity side, per the surgeon. The new margin is inked blue and the specimen is serially sectioned. The specimen is entirely submitted in 3 cassettes. I. Received in formalin labeled "left breast anterior margin," is a 2.8 x 1.8 x 1.0 cm irregular portion of fibroadipose tissue with a suture marking the biopsy cavity side, per the surgeon. The new margin is inked blue and the specimen is serially sectioned. The specimen is entirely submitted in 3 cassettes. J. Received in formalin labeled "left higher axillary contents," is a 5.0 x 4.5 x 1.8 cm aggregate of yellow, lobulated adipose tissue. Sectioning reveals 4 monsivais, irregular lymph nodes ranging from 0.7 x 0.5 x 0.4 cm to 2.5 x 1.0 x 0.6 cm. The lymph nodes are bisected and entirely submitted in 4 cassettes. 06/10/2017 [facility]06/10/2017
--- NOTE | 2017-06-15 17:13 | OP ---
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 OPERATIVE PROCEDURE: Left breast reconstruction with other technique. OPERATIVE INDICATION: The patient is a woman who was brought to the operating room by Dr. Paty Vivar for left breast mastectomy and lymph node dissection. The risks and benefits of surgical versus nonsurgical alternatives as well as complications of reconstruction with other technique were described to the patient on multiple occasions preoperatively. She agreed with the planned procedure. OPERATIVE PROCEDURE IN DETAIL: The patient was taken to the operating room and placed in the supine position on the operating room table. The markings which were made in the standing position preoperative for outline of the reconstruction and tissue rearrangement were discussed with the patient previously and had been marked in the standing position. These areas were reconfirmed and outlined again on the chest wall for the reconstructive purposes. After all prepping and draping was carried out, Dr. Vivar and I turned to the left breast. I began the operation by incising circumferentially around the nipple areolar complex with a No. 42 nipple areolar cutter and then made incision according to the patterns which was drawn in the standing position for elevation of the tissues for reconstructive purposes. A circumferential incision was made around the nipple areolar complex and then down according to the pattern removing of skin for exposure. At this point the incision was continued by Dr. Vivar using electrocautery down through the skin to the subcutaneous tissue and the dictation will be covered by him at this point. Upon completion of the tissue removal and lymph node dissection, the area which had been removed was reconstructed. Making large incisions in the lower and superior portions of the breast rotational flap with inferior pedicle technique was carried out. The inferior pedicle area was de-epithelized according to the pattern and flaps raised in the usual fashion similar to breast reduction. Then, the pedicle and rotated tissue was rotated into the anatomic defect. Copious irrigation of the wound was performed. Hemostasis was meticulously obtained throughout the pocket and then a 15 Josemanuel drain was brought through a separate stab wound laterally to exit with wound for drainage. The tissue was then advanced and close upon itself in a rotation advancement fashion creating reconstruction of the breast itself. Multiple sutures using 2-0 Vicryl sutures in the deep fascia connecting the tissue from above and below to correct the defect were carried out. Approximately 4 layers of suture were placed into the deep tissues. The skin and subcutaneous tissue was advanced and closed upon itself with a vertical and horizontal component inferiorly. All wounds were closed using 3-0 Monocryl and 4-0 Monocryl suture in a circumferentially and interrupted fashion. Once these wounds were closed Dermabond and Steri-Strips were placed over the wounds themselves. The patient was awakened, extubated and transferred to the recovery room in a [facility]. The patient tolerated the procedure well. PATY DELANEY M.D. AILEEN/[id number]
== END 2017-06-10 10:45 | disposition home or self-care (01) ==
LOC: FASU 07:06 → FM/S 14:13 → FASU 06-10 10:45
PROVIDERS: ATTEND Surgery Surgical Oncology
PROC: 0HBU0ZZ Excision of Left Breast, Open Approach (ICD-10-PCS; principal; 2017-06-09 12:47)
PROC: 07T60ZZ Resection of Left Axillary Lymphatic, Open Approach (ICD-10-PCS; 2017-06-09 12:47)
PROC: 0HRU07Z Replacement of Left Breast with Autologous Tissue Substitute, Open Approach (ICD-10-PCS; 2017-06-09 12:47)
DX: C50.212 Malignant neoplasm of upper-inner quadrant of left female breast (principal); C77.3 Secondary and unspecified malignant neoplasm of axilla and upper limb lymph nodes
CPT/HCPCS: 19281; 19286; 78195-TC; 88307-TC; 88331-TC; 88342-TC; 94760; A9541

== ENCOUNTER → 2017-07-05 | Day surgery (SDC) | payer OTHER ==
[~2017-07-05] MED LIST changes: +DEXAMETHASONE INJECTION 20 MG in SODIUM CHLORIDE 50 ML IVPB ONE; +DIPHENHYDRAMINE IVPB ONE; +ONDANSETRON IVPB ONE; +PACLITAXEL IVPB ONE; -PEGFILGRASTIM 6 MG/0.6 ML DISP.SYRIN SQ ONE; +RANITIDINE IVPB ONE; +SODIUM CHLORIDE 500 ML IV ONE; +SODIUM CHLORIDE IVPB ONE; +[UNRECOGNIZED DRUG - OTHER] IVPB ONE
[2017-07-05 09:56] VITALS: BP 160/90; PULSE 93; TEMP 98.5
[2017-07-05 10:12] LABS: EOSINOPHIL 4.5 % (0-4.5); MCH 28.3 pg (25.7-33.7); MCHC 33.1 g/dl (32.0-36.0); MEAN CELL VOLUME 85.6 fl (80-96); MEAN PLT VOLUME 8.3 fl (7.5-11.1); NEUTROPHILS 63.6 % (42.8-82.8); PLATELET COUNT 236 K/MM3 (134-434)
[2017-07-05 10:29] LABS: ALBUMIN 3.8 g/dl (3.4-5.0); ANION GAP 11 (8-16); BILIRUBIN,DIRECT 0.1 mg/dL (0.0-0.2); CALCIUM 9.3 mg/dL (8.5-10.1); CO2 27 mmol/L (21-32); CREATININE 0.6 mg/dL (0.55-1.02); GLUCOSE,RANDOM 122 mg/dL (74-106); SGOT/AST 24 U/L (15-37); SGPT/ALT 35 U/L (12-78)
[2017-07-05 10:31] LABS: ALK PHOS 96 U/L (45-117); BILIRUBIN,TOTAL 0.5 mg/dL (0.2-1.0)
== END | disposition home or self-care (01) ==
LOC: JONCCHEMO 07:35
PROVIDERS: ATTEND Internal Medicine Hematology & Oncology
PROC: 3E043GC Introduction of Other Therapeutic Substance into Central Vein, Percutaneous Approach (ICD-10-PCS; principal; 2017-07-05)
DX: Z53.8 Procedure and treatment not carried out for other reasons (principal)
CPT/HCPCS: 36415; 80053; 80076; 83735; 85025

== ENCOUNTER 2017-07-12 07:16 | Day surgery (SDC) | payer OTHER ==
[2017-07-12] MEDS ORDERED: DEXAMETHASONE INJECTION 20 MG in SODIUM CHLORIDE 50 ML IVPB ONE (10:00)
[2017-07-12] MEDS ORDERED: SODIUM CHLORIDE 500 ML IV ONE (10:00)
[2017-07-12] MEDS ORDERED: [UNRECOGNIZED DRUG - OTHER] IVPB ONE (10:00)
[2017-07-12] MEDS ORDERED: RANITIDINE IVPB ONE (10:00)
[2017-07-12] MEDS ORDERED: ONDANSETRON IVPB ONE (10:00)
[2017-07-12] MEDS ORDERED: DIPHENHYDRAMINE IVPB ONE (10:00)
[2017-07-12 10:05] LABS: BASOPHIL 0.9 % (0-2.0); EOSINOPHIL 5.3 % (0-4.5); MCH 28.2 pg (25.7-33.7); MCHC 33.4 g/dl (32.0-36.0); MEAN CELL VOLUME 84.6 fl (80-96); MEAN PLT VOLUME 8.2 fl (7.5-11.1); NEUTROPHILS 65.1 % (42.8-82.8); PLATELET COUNT 252 K/MM3 (134-434); WHITE BLOOD COUNT 7.2 K/mm3 (4.0-10.0)
[2017-07-12] MEDS ORDERED: PACLITAXEL 144 MG in SODIUM CHLORIDE 250 ML IVPB ONE (10:30)
[2017-07-12 10:34] LABS: ALBUMIN 3.7 g/dl (3.4-5.0); ALK PHOS 105 U/L (45-117); ANION GAP 7 (8-16); BILIRUBIN,DIRECT 0.1 mg/dL (0.0-0.2); BILIRUBIN,TOTAL 0.4 mg/dL (0.2-1.0); CALCIUM 8.7 mg/dL (8.5-10.1); CO2 29 mmol/L (21-32); CREATININE 0.6 mg/dL (0.55-1.02); GLUCOSE,RANDOM 124 mg/dL (74-106); MAGNESIUM 1.8 mg/dL (1.8-2.4); SGOT/AST 30 U/L (15-37); SGPT/ALT 41 U/L (12-78)
[2017-07-12] MEDS ORDERED: SODIUM CHLORIDE 250 ML IV ONE (12:00)
--- NOTE | 2017-07-12 13:17 | RAPID ---
Physical Examination Vital Signs: Vital Signs Temperature 99.0 F 07/12/17 09:45 Pulse Rate 86 07/12/17 09:45 Respiratory Rate 14 07/12/17 09:45 Blood Pressure 120/60 07/12/17 09:45 O2 Sat by Pulse Oximetry (%) Constitutional: Yes: Anxious HENT: No: Nasal Congestion, Pharyngeal Erythema Neck: Yes: Supple Cardiovascular: Yes: Regular Rate and Rhythm Respiratory: Yes: CTA Bilaterally Gastrointestinal: Yes: Abdomen, Obese Neurological: Yes: Alert, Oriented Psychiatric: Yes: Alert, Oriented Labs: CBC, BMP 07/12/17 09:47 07/12/17 09:47 Rapid Response - Rapid Response Assessment: Called to see a patient who was receiving paclitaxel and developed a drug reaction. Patient was said to have turned red, with flushing of her face and difficulty breathing. This was the patient's second use of paclitaxel. The paclitaxel was stopped. solumedrol 125 iv was given Benadryl 50 iv was given Normal saline at 900ml/hr was given Patient was put on oxygen via nasal cannular and was sating at 95% Was able to talk, the flushing improved Blood pressure was 167/53 Patient will received a CXCR stat and will be monitored further Outcome: Improved Recommendations/Interventions: Follow up Stat CXR
[2017-07-12] MEDS ORDERED: DEXAMETHASONE SOD PHOSPHATE 10 MG/1 ML VIAL ONE (13:19)
[2017-07-12] MEDS ORDERED: ALBUTEROL SO4 0.042% IH SOL 1.25 MG/3 ML VIAL.NEB NEB ONE (13:33)
[2017-07-12] MEDS ORDERED: ALBUTEROL SO4 0.042% IH SOL 1.25 MG/3 ML VIAL.NEB NEB PRN (13:34)
[2017-07-12] MEDS ORDERED: ALBUTEROL SO4 0.083% IH SOL 2.5 MG/3 ML VIAL.NEB. NEB ONE (13:35)
[2017-07-12] MEDS ORDERED: methylPREDNISolone NA SUCC 125 MG/2 ML VIAL IVPB ONE (14:45)
[2017-07-12] MEDS ORDERED: FAMOTIDINE 20 MG/50 ML IVPB 50 ML IVPB ONE (15:45)
[2017-07-12] MEDS ORDERED: DEXAMETHASONE SOD PHOSPHATE 20 MG/5 ML VIAL IVPB SCH (15:45)
--- NOTE | 2017-07-12 16:19 | HP ---
Satellite H - Chief Complaint Chief Complaint: sob History Source: Patient Limitations to Obtaining History: No Limitations - Past Medical History Allergies/Adverse Reactions: Allergies Allergy/AdvReac Type Severity Reaction Status Date / Time No Known Allergies Allergy Verified 06/09/17 07:28 Pulmonary: Yes: Asthma Gastrointestinal: Yes: Other (achalasia) - Current Medications Current Medications: Home Medications Medication Instructions Recorded Loratadine [Claritin] 10 mg PO DAILY 03/01/17 Albuterol Sulfate [Proventil HFA 1 - 2 inh PO TID PRN 03/03/17 Inhaler -] Budesonide/Formeterol Fumarate 2 puff IH DAILY 05/12/17 [SYMBICORT 160/4.5mcg -] Pantoprazole Sodium 40 mg PO DAILY 05/12/17 Oxycodone HCl/Acetaminophen 1 - 2 tab PO Q6H #30 tablet MDD 6 06/09/17 [Percocet 5-325 mg Tablet -] Satellite Physical Exam - Physical Examination Vital Signs: Vital Signs Period Temp Pulse Resp BP Sys/Lerner Pulse Ox Last 24 Hr 98.9 F-99.0 F 80-86 14-20 120-150/60-95 General Appearance: Well Nourished, Well Developed, Alert & Oriented x3, Moderate Distress, Other (erythematous appearing face and chest, no hives noted) ENT: No Discharge Lung: Other (bilateral wheezing present) Heart: Other (tachycardic) Abdomen: Soft, No tenderness Extremities: No edema Satellite Impression/Plan - Impression/Plan Impression: Stage III TNBC s/p surgery, here for adjuvant taxol. Taxol reaction this am: Severe with flushing, SOB, wheezing, hypoxia . Did not need epi. Stopped infusion, given solumedrol, dex , benadryl and anti histamine. Re- abstract checker 2hrs after the episode again, was completely asymptomatic, no further wheezing. will watch her for 24hrs ,will need stay over night. f/u as an OP upon d/c
[2017-07-12] MEDS ORDERED: methylPREDNISolone NA SUCC 125 MG/2 ML VIAL IM ONE (17:30)
[2017-07-12] MEDS ORDERED: SODIUM CHLORIDE 1,000 ML IV SCH (18:15)
[2017-07-12] MEDS ORDERED: ZOLPIDEM TARTRATE 5 MG TABLET PO PRN (21:31)
[2017-07-12] MEDS ORDERED: ACETAMINOPHEN 325 MG TABLET (FP) PO PRN (21:34)
[2017-07-13 07:40] LABS: BASOPHIL 0.2 % (0-2.0); MCHC 33.1 g/dl (32.0-36.0); MEAN CELL VOLUME 84.7 fl (80-96); MEAN PLT VOLUME 8.9 fl (7.5-11.1); NEUTROPHILS 86.1 % (42.8-82.8); PLATELET COUNT 248 K/MM3 (134-434); RDW 14.5 % (11.6-15.6); WHITE BLOOD COUNT 12.2 K/mm3 (4.0-10.0)
[2017-07-13 08:01] LABS: ALBUMIN 3.8 g/dl (3.4-5.0); GLUCOSE,RANDOM 192 mg/dL (74-106); SGOT/AST 18 U/L (15-37); SGPT/ALT 41 U/L (12-78)
[2017-07-13 08:05] LABS: ALK PHOS 94 U/L (45-117); ANION GAP 10 (8-16); BILIRUBIN,TOTAL 0.7 mg/dL (0.2-1.0); CALCIUM 9.5 mg/dL (8.5-10.1); CO2 26 mmol/L (21-32); CREATININE 0.6 mg/dL (0.55-1.02); TOT PROT 6.8 g/dl (6.4-8.2)
[2017-07-13] MEDS ORDERED: PANTOPRAZOLE 40 MG TABLET (FP) PO ONE ×2 (08:30→10:00)
--- NOTE | 2017-07-13 09:57 | DS ---
Physical Examination Vital Signs: Vital Signs Temperature 97.8 F 07/13/17 05:33 Pulse Rate 93 H 07/13/17 05:33 Respiratory Rate 18 07/13/17 05:33 Blood Pressure 134/85 07/13/17 05:33 O2 Sat by Pulse Oximetry (%) Constitutional: Yes: Well Nourished, No Distress, Calm Eyes: Yes: Conjunctiva Clear HENT: Yes: Atraumatic, Normocephalic Neck: Yes: Supple, Trachea Midline Cardiovascular: Yes: Regular Rate and Rhythm Respiratory: Yes: Regular, CTA Bilaterally Gastrointestinal: Yes: Normal Bowel Sounds, Soft Edema: No Labs: CBC, BMP 07/13/17 06:00 07/13/17 06:00 Discharge Summary Reason For Visit: BREAST CANCER Current Active Problems Asthma exacerbation (Acute) Breast cancer, left (Acute) Neutropenia (Acute) Hospital Course: was watched post taxol severe reaction. no issues after the reaction yesterday feeling normal today blood glucose high in the setting of receiving steroids , asked to monitor norvasc given for htn. given instruction in case there might be delyed. she will rtc on next tuesday. Condition: Good - Instructions Disposition: HOME - Home Medications Comprehensive Discharge Medication List: Ambulatory Orders Loratadine [Claritin] 10 mg PO DAILY 03/01/17 Albuterol Sulfate [Proventil HFA Inhaler -] 1 - 2 inh PO TID PRN 03/03/17 Budesonide/Formeterol Fumarate [SYMBICORT 160/4.5mcg -] 2 puff IH DAILY Pantoprazole Sodium 40 mg PO DAILY 05/12/17 Oxycodone HCl/Acetaminophen [Percocet 5-325 mg Tablet -] 1 - 2 tab PO Q6H #30 tablet MDD 6 06/09/17
[2017-07-13] MEDS ORDERED: amLODIPine BESYLATE 5 MG TABLET (FP) PO ONE (10:00)
[2017-07-13] MEDS ORDERED: INSULIN (NOVOLOG) ASPART 100 UNITS/ML 10ML VIAL SQ ONE (12:59)
[2017-07-13 13:24] VITALS: BP 141/78; PULSE 86; TEMP 98
== END 2017-07-13 13:43 | disposition home or self-care (01) ==
LOC: JONCCHEMO 07:16 → J7W 10:41 → JONCCHEMO 07-13 13:43
PROVIDERS: ATTEND Internal Medicine Hematology & Oncology
PROC: 3E04305 Introduction of Other Antineoplastic into Central Vein, Percutaneous Approach (ICD-10-PCS; principal; 2017-07-12)
PROC: 3E013VG Introduction of Insulin into Subcutaneous Tissue, Percutaneous Approach (ICD-10-PCS; 2017-07-12)
DX: Z51.11 Encounter for antineoplastic chemotherapy (principal); C50.919 Malignant neoplasm of unspecified site of unspecified female breast; R73.9 Hyperglycemia, unspecified; T45.1X5A Adverse effect of antineoplastic and immunosuppressive drugs, initial encounter; Y92.538 Other ambulatory health services establishments as the place of occurrence of the external cause; J45.901 Unspecified asthma with (acute) exacerbation
CPT/HCPCS: 36415; 71010-TC; 80053; 80076; 83735; 85025; 94640; 96367; 96372; 96375; 96409; 96413; J8540

== ENCOUNTER 2017-07-28 07:06 | Day surgery (SDC) | payer OTHER ==
[2017-07-28] MEDS ORDERED: SODIUM CHLORIDE IVPB ONE (10:30)
[2017-07-28] MEDS ORDERED: PACLITAXEL PROTEIN BOUND IVPB ONE (10:30)
[2017-07-28 10:48] LABS: MCH 27.8 pg (25.7-33.7); MCHC 33.3 g/dl (32.0-36.0); MEAN CELL VOLUME 83.5 fl (80-96); MEAN PLT VOLUME 8.8 fl (7.5-11.1); PLATELET COUNT 242 K/MM3 (134-434); RDW 14.5 % (11.6-15.6); WHITE BLOOD COUNT 12.6 K/mm3 (4.0-10.0)
[2017-07-28 11:15] LABS: ALBUMIN 3.9 g/dl (3.4-5.0); ALK PHOS 142 U/L (45-117); ANION GAP 9 (8-16); BILIRUBIN,DIRECT < 0.2 mg/dL (0.0-0.2); BILIRUBIN,TOTAL 0.3 mg/dL (0.2-1.0); CALCIUM 9.5 mg/dL (8.5-10.1); CO2 24 mmol/L (21-32); CREATININE 0.8 mg/dL (0.55-1.02); GLUCOSE,RANDOM 179 mg/dL (74-106); MAGNESIUM 2.2 mg/dL (1.8-2.4); SGOT/AST 18 U/L (15-37); SGPT/ALT 40 U/L (12-78); TOT PROT 7.1 g/dl (6.4-8.2)
[2017-07-28 11:44] VITALS: BP 120/69; PULSE 81; TEMP 98.8
[2017-07-28 11:45] LABS: METAMYELOCYTE 1 % (0-2); MYELOCYTE 5 % (0-2); PLATELET ESTIMATE ADEQUATE (NORMAL); TOTAL CELLS COUNTED 100
[2017-07-28] MEDS ORDERED: PORTA CATH FLUSH 10 ML IVPUSH ONE (11:46)
[2017-07-28] MEDS ORDERED: DEXAMETHASONE IVPB ONE (12:00)
[2017-07-28] MEDS ORDERED: RANITIDINE IVPB ONE (12:00)
[2017-07-28] MEDS ORDERED: DIPHENHYDRAMINE IVPB ONE (12:00)
[2017-07-28] MEDS ORDERED: [UNRECOGNIZED DRUG - OTHER] IVPB ONE (12:00)
== END 2017-07-28 14:35 | disposition home or self-care (01) ==
LOC: JONCCHEMO 07:06 → J7W 11:31 → JONCCHEMO 14:35
PROVIDERS: ATTEND Internal Medicine Hematology & Oncology
DX: Z51.11 Encounter for antineoplastic chemotherapy (principal); C50.919 Malignant neoplasm of unspecified site of unspecified female breast
CPT/HCPCS: 36415; 80053; 80076; 83735; 85025; 96367; 96375; 96413; J9264

== ENCOUNTER 2017-08-16 07:12 | Day surgery (SDC) | payer OTHER, BC ==
[2017-08-16 09:53] LABS: MCH 27.4 pg (25.7-33.7); MCHC 33.1 g/dl (32.0-36.0); MEAN PLT VOLUME 8.7 fl (7.5-11.1); PLATELET COUNT 199 K/MM3 (134-434); RDW 15.1 % (11.6-15.6); WHITE BLOOD COUNT 6.6 K/mm3 (4.0-10.0)
[2017-08-16] MEDS ORDERED: SODIUM CHLORIDE IVPB ONE (10:00)
[2017-08-16] MEDS ORDERED: PACLITAXEL PROTEIN BOUND IVPB ONE (10:00)
[2017-08-16 10:25] LABS: ALBUMIN 3.7 g/dl (3.4-5.0); ALK PHOS 131 U/L (45-117); ANION GAP 9 (8-16); BILIRUBIN,DIRECT < 0.2 mg/dL (0.0-0.2); BILIRUBIN,TOTAL 0.5 mg/dL (0.2-1.0); CALCIUM 8.7 mg/dL (8.5-10.1); CO2 28 mmol/L (21-32); CREATININE 0.6 mg/dL (0.55-1.02); GLUCOSE,RANDOM 183 mg/dL (74-106); MAGNESIUM 1.8 mg/dL (1.8-2.4); SGOT/AST 17 U/L (15-37); SGPT/ALT 47 U/L (12-78); TOT PROT 6.5 g/dl (6.4-8.2)
[2017-08-16] MEDS ORDERED: DEXAMETHASONE IVPB ONE (11:30)
[2017-08-16] MEDS ORDERED: DIPHENHYDRAMINE IVPB ONE (11:30)
[2017-08-16] MEDS ORDERED: RANITIDINE IVPB ONE (11:30)
[2017-08-16] MEDS ORDERED: [UNRECOGNIZED DRUG - OTHER] IVPB ONE (11:30)
[2017-08-16 12:32] VITALS: TEMP 98.3
[2017-08-16] MEDS ORDERED: PORTA CATH FLUSH 10 ML IVPUSH ONE ×2 (12:32→12:56)
[2017-08-16 12:58] VITALS: BP 139/90; PULSE 85
[2017-08-16 15:20] LABS: PLATELET ESTIMATE ADEQUATE; TOTAL CELLS COUNTED 100
== END 2017-08-16 12:45 | disposition home or self-care (01) ==
LOC: JONCCHEMO 07:12 → J7W 10:50 → JONCCHEMO 12:45
PROVIDERS: ATTEND Internal Medicine Hematology & Oncology
DX: Z51.11 Encounter for antineoplastic chemotherapy (principal); C50.212 Malignant neoplasm of upper-inner quadrant of left female breast
CPT/HCPCS: 36415; 80053; 80076; 83735; 85025; 96367; 96413; J9264

== ENCOUNTER 2017-09-01 07:22 | Day surgery (SDC) | payer OTHER ==
[2017-09-01] MEDS ORDERED: ONDANSETRON IVPB ONE (08:00)
[2017-09-01] MEDS ORDERED: DEXAMETHASONE IVPB ONE (08:00)
[2017-09-01] MEDS ORDERED: DIPHENHYDRAMINE IVPB ONE (08:00)
[2017-09-01] MEDS ORDERED: [UNRECOGNIZED DRUG - OTHER] IVPB ONE (08:00)
[2017-09-01] MEDS ORDERED: SODIUM CHLORIDE IVPB ONE (08:30)
[2017-09-01] MEDS ORDERED: PACLITAXEL PROTEIN BOUND IVPB ONE (08:30)
[2017-09-01] MEDS ORDERED: SODIUM CHLORIDE 1,000 ML IV SCH (15:00)
[2017-09-01 15:25] LABS: BASOPHIL 0.2 % (0-2.0); EOSINOPHIL 0.9 % (0-4.5); MCHC 33.5 g/dl (32.0-36.0); MEAN CELL VOLUME 83.7 fl (80-96); MEAN PLT VOLUME 9.1 fl (7.5-11.1); NEUTROPHILS 85.1 % (42.8-82.8); PLATELET COUNT 221 K/MM3 (134-434); RDW 17.1 % (11.6-15.6); WHITE BLOOD COUNT 16.7 K/mm3 (4.0-10.0)
[2017-09-01] MEDS ORDERED: DEXAMETHASONE SOD PHOSPHATE 4 MG/1 ML VIAL IVPB ONE (15:35)
[2017-09-01 15:49] LABS: ALBUMIN 3.8 g/dl (3.4-5.0); ANION GAP 8 (8-16); BILIRUBIN,TOTAL 0.3 mg/dL (0.2-1.0); CALCIUM 8.5 mg/dL (8.5-10.1); CO2 27 mmol/L (21-32); CREATININE 0.7 mg/dL (0.55-1.02); GLUCOSE,RANDOM 154 mg/dL (74-106); MAGNESIUM 2.1 mg/dL (1.8-2.4); SGOT/AST 11 U/L (15-37); SGPT/ALT 32 U/L (12-78); TOT PROT 6.7 g/dl (6.4-8.2)
[2017-09-01 15:50] LABS: ALK PHOS 112 U/L (45-117)
[2017-09-01 17:13] VITALS: TEMP 98.4
[2017-09-01 18:46] VITALS: BP 117/65; PULSE 83
== END 2017-09-01 18:47 | disposition home or self-care (01) ==
LOC: JONCCHEMO 07:22 → J7W 14:40 → JONCCHEMO 18:47
PROVIDERS: ATTEND Internal Medicine Hematology & Oncology
PROC: 3E04305 Introduction of Other Antineoplastic into Central Vein, Percutaneous Approach (ICD-10-PCS; principal; 2017-09-01)
PROC: 3E0437Z Introduction of Electrolytic and Water Balance Substance into Central Vein, Percutaneous Approach (ICD-10-PCS; 2017-09-01)
PROC: 3E043GC Introduction of Other Therapeutic Substance into Central Vein, Percutaneous Approach (ICD-10-PCS; 2017-09-01)
DX: Z51.11 Encounter for antineoplastic chemotherapy (principal); C50.212 Malignant neoplasm of upper-inner quadrant of left female breast
CPT/HCPCS: 96361; 96365; 96413; J9267; 36415; 80053; 83735; 85025; 96367; 96375; J9264

== ENCOUNTER 2017-09-08 07:28 | Day surgery (SDC) | payer OTHER ==
[2017-09-08] MEDS ORDERED: DEXAMETHASONE IVPB ONE (08:00)
[2017-09-08] MEDS ORDERED: DIPHENHYDRAMINE IVPB ONE (08:00)
[2017-09-08] MEDS ORDERED: [UNRECOGNIZED DRUG - OTHER] IVPB ONE (08:00)
[2017-09-08] MEDS ORDERED: ONDANSETRON IVPB ONE (08:00)
[2017-09-08] MEDS ORDERED: PACLITAXEL PROTEIN BOUND IVPB ONE (08:30)
[2017-09-08] MEDS ORDERED: SODIUM CHLORIDE IVPB ONE (08:30)
[2017-09-08 10:33] LABS: MCH 27.9 pg (25.7-33.7); MCHC 33.2 g/dl (32.0-36.0); MEAN CELL VOLUME 84.1 fl (80-96); MEAN PLT VOLUME 8.5 fl (7.5-11.1); PLATELET COUNT 261 K/MM3 (134-434)
[2017-09-08 11:05] LABS: ALBUMIN 3.6 g/dl (3.4-5.0); ANION GAP 7 (8-16); BILIRUBIN,DIRECT < 0.2 mg/dL (0.0-0.2); CALCIUM 9.3 mg/dL (8.5-10.1); CO2 29 mmol/L (21-32); CREATININE 0.6 mg/dL (0.55-1.02); GLUCOSE,RANDOM 117 mg/dL (74-106); MAGNESIUM 1.9 mg/dL (1.8-2.4); SGOT/AST 10 U/L (15-37); SGPT/ALT 37 U/L (12-78)
[2017-09-08 11:07] LABS: ALK PHOS 102 U/L (45-117); BILIRUBIN,TOTAL 0.6 mg/dL (0.2-1.0); TOT PROT 6.5 g/dl (6.4-8.2)
[2017-09-08] MEDS ORDERED: DEXAMETHASONE SOD PHOSPHATE 4 MG/1 ML VIAL IVPB ONE (11:15)
[2017-09-08 12:54] LABS: TOTAL CELLS COUNTED 100
[2017-09-08 12:55] LABS: METAMYELOCYTE 1 % (0-2); PLATELET ESTIMATE ADEQUATE
[2017-09-08 17:05] VITALS: BP 128/70; PULSE 79; TEMP 98.6
[2017-09-08] MEDS ORDERED: PORTA CATH FLUSH 10 ML IVPUSH ONE (17:09)
== END 2017-09-08 12:50 | disposition home or self-care (01) ==
LOC: JONCCHEMO 07:28 → J7W 11:13 → JONCCHEMO 12:50
PROVIDERS: ATTEND Internal Medicine Hematology & Oncology
DX: Z51.11 Encounter for antineoplastic chemotherapy (principal); C50.212 Malignant neoplasm of upper-inner quadrant of left female breast
CPT/HCPCS: 36415; 80053; 80076; 83735; 85025; 96367; 96375; 96413; J9264

== ENCOUNTER 2017-09-15 07:28 | Day surgery (SDC) | payer OTHER ==
[2017-09-15] MEDS ORDERED: DEXAMETHASONE IVPB ONE (08:00)
[2017-09-15] MEDS ORDERED: [UNRECOGNIZED DRUG - OTHER] IVPB ONE (08:00)
[2017-09-15] MEDS ORDERED: ONDANSETRON IVPB ONE (08:00)
[2017-09-15] MEDS ORDERED: PACLITAXEL PROTEIN BOUND IVPB ONE (08:30)
[2017-09-15] MEDS ORDERED: SODIUM CHLORIDE IVPB ONE (08:30)
[2017-09-15 10:03] LABS: MCHC 33.2 g/dl (32.0-36.0); MEAN CELL VOLUME 84.4 fl (80-96); MEAN PLT VOLUME 8.3 fl (7.5-11.1); PLATELET COUNT 258 K/MM3 (134-434); RDW 17.4 % (11.6-15.6); WHITE BLOOD COUNT 7.4 K/mm3 (4.0-10.0)
[2017-09-15 10:28] LABS: ALBUMIN 3.7 g/dl (3.4-5.0); ALK PHOS 114 U/L (45-117); ANION GAP 7 (8-16); BILIRUBIN,DIRECT 0.2 mg/dL (0.0-0.2); BILIRUBIN,TOTAL 0.6 mg/dL (0.2-1.0); CO2 27 mmol/L (21-32); CREATININE 0.6 mg/dL (0.55-1.02); GLUCOSE,RANDOM 159 mg/dL (74-106); MAGNESIUM 1.9 mg/dL (1.8-2.4); SGOT/AST 21 U/L (15-37); SGPT/ALT 56 U/L (12-78); TOT PROT 6.5 g/dl (6.4-8.2)
[2017-09-15] MEDS ORDERED: DEXAMETHASONE SOD PHOSPHATE 4 MG/1 ML VIAL IVPB ONE (11:00)
[2017-09-15 12:01] LABS: ANISOCYTOSIS 0; HYPOCHROMIA 0; MACROCYTOSIS 0; METAMYELOCYTE 0 % (0-2); MICROCYTOSIS 1+; MYELOCYTE 1 % (0-2); PLATELET ESTIMATE NORMAL; POIKILOCYTOSIS 0; POLYCHROMASIA 0; REACTIVE LYMPHOCYTES 5 % (0-80)
[2017-09-15 13:41] VITALS: TEMP 98.2
[2017-09-15 13:46] VITALS: BP 134/78; PULSE 85
[2017-09-15] MEDS ORDERED: PORTA CATH FLUSH 10 ML IVPUSH ONE (13:46)
== END 2017-09-15 12:55 | disposition home or self-care (01) ==
LOC: JONCCHEMO 07:28 → J7W 11:03 → JONCCHEMO 12:55
PROVIDERS: ATTEND Internal Medicine Hematology & Oncology
DX: Z51.11 Encounter for antineoplastic chemotherapy (principal); C50.212 Malignant neoplasm of upper-inner quadrant of left female breast
CPT/HCPCS: 36415; 80053; 80076; 83735; 85025; 96367; 96375; 96413; J9264

== ENCOUNTER 2017-09-29 07:49 | Day surgery (SDC) | payer OTHER ==
[2017-09-29] MEDS ORDERED: [UNRECOGNIZED DRUG - OTHER] IVPB ONE (10:00)
[2017-09-29] MEDS ORDERED: DIPHENHYDRAMINE IVPB ONE (10:00)
[2017-09-29] MEDS ORDERED: ONDANSETRON IVPB ONE (10:00)
[2017-09-29] MEDS ORDERED: DEXAMETHASONE IVPB ONE (10:00)
[2017-09-29 10:18] LABS: BASO % 0.8 % (0-2.0); EOS % 1.3 % (0-4.5); HEMATOCRIT 37.7 % (32.4-45.2); HEMOGLOBIN 12.4 GM/dL (10.7-15.3); LYMPH % 15.5 % (8-40); MCH 27.8 pg (25.7-33.7); MCHC 32.8 g/dl (32.0-36.0); MEAN CELL VOLUME 84.6 fl (80-96); MONO % 10.8 % (3.8-10.2); NEUT % 71.6 % (42.8-82.8); PLATELET COUNT 198 K/MM3 (134-434); RBC 4.46 M/mm3 (3.60-5.2); RDW 18.4 % (11.6-15.6); WHITE BLOOD COUNT 6.8 K/mm3 (4.0-10.0)
[2017-09-29 10:24] LABS: ALBUMIN 3.6 g/dl (3.4-5.0); ALK PHOS 97 U/L (45-117); ANION GAP 10 (8-16); BILIRUBIN,DIRECT 0.2 mg/dL (0.0-0.2); BILIRUBIN,TOTAL 0.6 mg/dL (0.2-1.0); BLOOD UREA NITROGEN 11 mg/dL (7-18); CALCIUM 8.8 mg/dL (8.5-10.1); CHLORIDE 107 mmol/L (98-107); CO2 23 mmol/L (21-32); CREATININE 0.7 mg/dL (0.55-1.02); GLUCOSE,RANDOM 229 mg/dL (74-106); POTASSIUM 3.7 mmol/L (3.5-5.1); SGOT/AST 14 U/L (15-37); SGPT/ALT 37 U/L (12-78); SODIUM 140 mmol/L (136-145); TOT PROT 6.5 g/dl (6.4-8.2)
[2017-09-29] MEDS ORDERED: DEXAMETHASONE 4 MG TABLET (FP) PO ONE (11:00)
[2017-09-29] MEDS ORDERED: SODIUM CHLORIDE IVPB ONE ×2 (11:00)
[2017-09-29] MEDS ORDERED: PACLITAXEL PROTEIN BOUND IVPB ONE ×2 (11:00)
[2017-09-29 11:11] VITALS: TEMP 98.1
[2017-09-29] MEDS ORDERED: PORTA CATH FLUSH 10 ML IVPUSH ONE (13:00)
[2017-09-29 13:19] VITALS: BP 127/81; PULSE 83
== END 2017-09-29 13:10 | disposition home or self-care (01) ==
LOC: JONCCHEMO 07:49 → J7W 10:20 → JONCCHEMO 13:10
PROVIDERS: ATTEND Internal Medicine Hematology & Oncology
DX: Z51.11 Encounter for antineoplastic chemotherapy (principal); C50.212 Malignant neoplasm of upper-inner quadrant of left female breast
CPT/HCPCS: 36415; 80053; 80076; 83735; 85025; 96367; 96375; 96413; J9264

== ENCOUNTER 2017-10-06 07:46 | Day surgery (SDC) | payer OTHER, BC ==
[2017-10-06] MEDS ORDERED: DIPHENHYDRAMINE IVPB ONE (10:00)
[2017-10-06] MEDS ORDERED: [UNRECOGNIZED DRUG - OTHER] IVPB ONE (10:00)
[2017-10-06] MEDS ORDERED: DEXAMETHASONE IVPB ONE (10:00)
[2017-10-06] MEDS ORDERED: ONDANSETRON IVPB ONE (10:00)
[2017-10-06] MEDS ORDERED: PACLITAXEL PROTEIN BOUND IVPB ONE (10:30)
[2017-10-06] MEDS ORDERED: SODIUM CHLORIDE IVPB ONE (10:30)
[2017-10-06 13:07] LABS: HEMATOCRIT 36.4 % (32.4-45.2); HEMOGLOBIN 11.8 GM/dL (10.7-15.3); MCH 27.6 pg (25.7-33.7); MCHC 32.6 g/dl (32.0-36.0); MEAN CELL VOLUME 84.9 fl (80-96); MEAN PLT VOLUME 8.5 fl (7.5-11.1); PLATELET COUNT 285 K/MM3 (134-434); RBC 4.28 M/mm3 (3.60-5.2); RDW 18.4 % (11.6-15.6); WHITE BLOOD COUNT 13.3 K/mm3 (4.0-10.0)
[2017-10-06 13:38] LABS: ALBUMIN 3.6 g/dl (3.4-5.0); ALK PHOS 107 U/L (45-117); ANION GAP 11 (8-16); BILIRUBIN,TOTAL 0.5 mg/dL (0.2-1.0); BLOOD UREA NITROGEN 10 mg/dL (7-18); CALCIUM 9.1 mg/dL (8.5-10.1); CHLORIDE 103 mmol/L (98-107); CO2 27 mmol/L (21-32); CREATININE 0.5 mg/dL (0.55-1.02); GLUCOSE,RANDOM 111 mg/dL (74-106); POTASSIUM 3.8 mmol/L (3.5-5.1); SGOT/AST 21 U/L (15-37); SGPT/ALT 40 U/L (12-78); SODIUM 141 mmol/L (136-145); TOT PROT 6.8 g/dl (6.4-8.2)
[2017-10-06 14:04] LABS: ANISOCYTOSIS 3+; MACROCYTOSIS 0; PLATELET ESTIMATE NORMAL
[2017-10-06 16:01] VITALS: BP 119/70; PULSE 81; TEMP 97.9
== END 2017-10-06 16:01 | disposition home or self-care (01) ==
LOC: JONCCHEMO 07:46 → J7W 12:34 → JONCCHEMO 16:01
PROVIDERS: ATTEND Internal Medicine Hematology & Oncology
DX: Z51.11 Encounter for antineoplastic chemotherapy (principal); C50.212 Malignant neoplasm of upper-inner quadrant of left female breast
CPT/HCPCS: 36415; 80053; 85025; 96367; 96375; 96413; J1100; J9264

== ENCOUNTER 2017-10-13 07:27 | Day surgery (SDC) | payer OTHER, BC ==
[2017-10-13] MEDS ORDERED: [UNRECOGNIZED DRUG - OTHER] IVPB ONE (10:00)
[2017-10-13] MEDS ORDERED: ONDANSETRON IVPB ONE (10:00)
[2017-10-13] MEDS ORDERED: DIPHENHYDRAMINE IVPB ONE (10:00)
[2017-10-13] MEDS ORDERED: DEXAMETHASONE IVPB ONE (10:00)
[2017-10-13 10:07] LABS: HEMOGLOBIN 12.3 GM/dL (10.7-15.3); MCH 28.2 pg (25.7-33.7); MCHC 33.2 g/dl (32.0-36.0); MEAN CELL VOLUME 84.8 fl (80-96); MEAN PLT VOLUME 8.4 fl (7.5-11.1); PLATELET COUNT 259 K/MM3 (134-434); RBC 4.36 M/mm3 (3.60-5.2); RDW 18.2 % (11.6-15.6); WHITE BLOOD COUNT 8.8 K/mm3 (4.0-10.0)
[2017-10-13] MEDS ORDERED: SODIUM CHLORIDE IVPB ONE (10:30)
[2017-10-13] MEDS ORDERED: PACLITAXEL PROTEIN BOUND IVPB ONE (10:30)
[2017-10-13 10:35] LABS: ALBUMIN 3.7 g/dl (3.4-5.0); ANION GAP 10 (8-16); BLOOD UREA NITROGEN 10 mg/dL (7-18); CALCIUM 9.2 mg/dL (8.5-10.1); CHLORIDE 104 mmol/L (98-107); CO2 27 mmol/L (21-32); CREATININE 0.6 mg/dL (0.55-1.02); GLUCOSE,RANDOM 168 mg/dL (74-106); SGOT/AST 17 U/L (15-37); SGPT/ALT 43 U/L (12-78); SODIUM 141 mmol/L (136-145)
[2017-10-13 10:38] LABS: ALK PHOS 106 U/L (45-117); BILIRUBIN,TOTAL 0.7 mg/dL (0.2-1.0); TOT PROT 6.8 g/dl (6.4-8.2)
[2017-10-13 12:44] LABS: ANISOCYTOSIS 1+; MACROCYTOSIS 0; PLATELET ESTIMATE NORMAL
[2017-10-13 15:41] VITALS: TEMP 98.4
[2017-10-13 15:49] VITALS: BP 131/71; PULSE 85
[2017-10-13] MEDS ORDERED: PORTA CATH FLUSH 10 ML IVPUSH ONE (15:49)
== END 2017-10-13 13:00 | disposition home or self-care (01) ==
LOC: JONCCHEMO 07:27 → J7W 11:38 → JONCCHEMO 13:00
PROVIDERS: ATTEND Internal Medicine Hematology & Oncology
DX: Z51.11 Encounter for antineoplastic chemotherapy (principal); C50.212 Malignant neoplasm of upper-inner quadrant of left female breast
CPT/HCPCS: 36415; 80053; 83735; 85025; 96367; 96375; 96413; J9264

== ENCOUNTER 2017-10-27 07:34 | Day surgery (SDC) | payer OTHER, BC ==
[2017-10-27] MEDS ORDERED: ONDANSETRON IVPB ONE (08:00)
[2017-10-27] MEDS ORDERED: DEXAMETHASONE IVPB ONE (08:00)
[2017-10-27] MEDS ORDERED: DIPHENHYDRAMINE IVPB ONE (08:00)
[2017-10-27] MEDS ORDERED: [UNRECOGNIZED DRUG - OTHER] IVPB ONE (08:00)
[2017-10-27] MEDS ORDERED: PACLITAXEL PROTEIN BOUND IVPB ONE (08:30)
[2017-10-27] MEDS ORDERED: SODIUM CHLORIDE IVPB ONE (08:30)
[2017-10-27 10:12] LABS: BASO % 1.2 % (0-2.0); EOS % 2.2 % (0-4.5); HEMATOCRIT 37.8 % (32.4-45.2); HEMOGLOBIN 12.5 GM/dL (10.7-15.3); LYMPH % 17.2 % (8-40); MCH 28.3 pg (25.7-33.7); MCHC 33.2 g/dl (32.0-36.0); MEAN CELL VOLUME 85.3 fl (80-96); MEAN PLT VOLUME 8.8 fl (7.5-11.1); MONO % 11.3 % (3.8-10.2); NEUT % 68.1 % (42.8-82.8); PLATELET COUNT 242 K/MM3 (134-434); RBC 4.43 M/mm3 (3.60-5.2); RDW 17.5 % (11.6-15.6); WHITE BLOOD COUNT 7.3 K/mm3 (4.0-10.0)
[2017-10-27 10:37] LABS: ALBUMIN 3.8 g/dl (3.4-5.0); ANION GAP 9 (8-16); BILIRUBIN,DIRECT 0.2 mg/dL (0.0-0.2); BILIRUBIN,TOTAL 0.8 mg/dL (0.2-1.0); BLOOD UREA NITROGEN 10 mg/dL (7-18); CALCIUM 8.6 mg/dL (8.5-10.1); CHLORIDE 104 mmol/L (98-107); CO2 26 mmol/L (21-32); CREATININE 0.6 mg/dL (0.55-1.02); GLUCOSE,RANDOM 164 mg/dL (74-106); MAGNESIUM 1.8 mg/dL (1.8-2.4); POTASSIUM 3.9 mmol/L (3.5-5.1); SGOT/AST 20 U/L (15-37); SGPT/ALT 48 U/L (12-78); SODIUM 139 mmol/L (136-145); TOT PROT 6.5 g/dl (6.4-8.2)
[2017-10-27 10:38] LABS: ALK PHOS 96 U/L (45-117)
[2017-10-27 12:33] VITALS: BP 121/75; PULSE 80; TEMP 98.2
[2017-10-27] MEDS ORDERED: PORTA CATH FLUSH 10 ML IVPUSH ONE ×2 (12:33→18:23)
== END 2017-10-27 13:45 | disposition home or self-care (01) ==
LOC: JONCCHEMO 07:34 → J7W 11:31 → JONCCHEMO 13:45
PROVIDERS: ATTEND Internal Medicine Hematology & Oncology
DX: Z51.11 Encounter for antineoplastic chemotherapy (principal); C50.212 Malignant neoplasm of upper-inner quadrant of left female breast
CPT/HCPCS: 36415; 80053; 80076; 83735; 85025; 96367; 96375; 96413; J1100; J9264

== ENCOUNTER 2018-01-17 11:27 | Day surgery (SDC) | payer OTHER, BC ==
--- NOTE | 2018-01-09 11:00 | HP ---
Admitting History and Physical - Primary Care Physician PCP: Ramy Vivar - Admission Chief Complaint: left breast cancer History of Present Illness: Patient is a 57 yo female s/p left breast WE and axillary node dissection (2016), completion of radiation tx (last dose 01/02/2018) and chemo, who is now presenting for removal of infusaport. History Source: Patient Limitations to Obtaining History: No Limitations - Past Medical History Pulmonary: Yes: Asthma Gastrointestinal: Yes: Other (achalasia) Heme/Onc: Yes: Cancer (left breast cancer 01/2017) - Past Surgical History Past Surgical History: Yes: Hysterectomy Additional Past Surgical History: esophageal dilation x 2 pilonidal cyst excision 1981 myomectomy at 46 yrs old - Smoking History Smoking history: Former smoker Have you smoked in the past 12 months: No If you are a former smoker, when did you quit?: 15 YEARS AGO - Alcohol/Substance Use Hx Alcohol Use: No History of Substance Use: reports: None - Social History ADL: Independent History of Recent Travel: No Home Medications - Allergies Allergies/Adverse Reactions: Allergies Allergy/AdvReac Type Severity Reaction Status Date / Time paclitaxel [From Taxol] Allergy Verified 08/31/17 15:07 taxol Allergy Unknown Uncoded 08/31/17 15:07 - Home Medications Home Medications: Ambulatory Orders Loratadine [Claritin] 10 mg PO DAILY 03/01/17 Albuterol Sulfate [Proventil HFA Inhaler -] 1 - 2 inh PO TID PRN 03/03/17 Budesonide/Formeterol Fumarate [SYMBICORT 160/4.5mcg -] 2 puff IH DAILY Pantoprazole Sodium 40 mg PO DAILY 05/12/17 Norvasc - 09/01/17 Prednisone 09/01/17 Family Disease History - Family Disease History Family Disease History: CA: Grandparent (maternal and paternal GM breast cancer 60s), Father (colon cancer at 86) Other Family History: maternal GF-colon cancer at 86 Review of Systems - Review of Systems Constitutional: reports: No Symptoms Cardiovascular: reports: No Symptoms Respiratory: reports: No Symptoms Physical Examination Constitutional: Yes: Well Nourished Breast(s): Yes: Other (Left breast well healed incisions. No palpable masses or adenopathy noted bilaterally.) Problem List - Problems (1) Breast cancer, left Code(s): C50.912 - MALIGNANT NEOPLASM OF UNSPECIFIED SITE OF LEFT FEMALE BREAST Qualifiers: Breast location: upper inner quadrant of breast Patient sex: female Assessment/Plan lifeport removal
[2018-01-10 16:34] VITALS: BMI 43.6
[2018-01-17] MEDS ORDERED: PROPOFOL 20 ML ONE ×3 (13:11→13:40)
[2018-01-17] MEDS ORDERED: MIDAZOLAM HCL 2 MG/2 ML SINGLE DOSE VIAL ONE ×2 (13:11→13:50)
[2018-01-17] MEDS ORDERED: LIDOCAINE HCL/PF 2% SDV 5ML VIAL ONE (13:12)
[2018-01-17] MEDS ORDERED: LIDOCAINE HCL 1%, 10 MG/ML (20ML VIAL) ONE (13:25)
[2018-01-17] MEDS ORDERED: ONDANSETRON 4 MG/2 ML VIAL ONE (13:55)
[2018-01-17] MEDS ORDERED: DEXAMETHASONE SOD PHOSPHATE 4 MG/1 ML VIAL ONE (13:55)
[2018-01-17] MEDS ORDERED: KETOROLAC TROMETHAMINE 30 MG/1 ML VIAL IVPUSH PRN (14:14)
[2018-01-17] MEDS ORDERED: ONDANSETRON 4 MG/2 ML VIAL IVPUSH PRN ×2 (14:14→14:19)
[2018-01-17] MEDS ORDERED: DEXTROSE 5%-0.45% SALINE 1,000 ML IV SCH (14:15)
[2018-01-17] MEDS ORDERED: ACETAMINOPHEN 325 MG TABLET (FP) PO PRN (14:19)
[2018-01-17] MEDS ORDERED: LACTATED RINGERS SOLUTION 1,000 ML IV SCH (14:30)
[2018-01-17] MEDS ORDERED: KETOROLAC TROMETHAMINE 30 MG/1 ML VIAL ONE (15:28)
[2018-01-17] MEDS ORDERED: ACETAMINOPHEN 325 MG TABLET (FP) ONE (15:37)
[2018-01-17 15:57] VITALS: BP 128/70; PULSE 81; TEMP 98
--- NOTE | 2018-01-17 18:55 | OP ---
DATE OF OPERATION: 01/17/2018 PREOPERATIVE DIAGNOSIS: Left breast cancer status post chemotherapy, radiation. POSTOPERATIVE DIAGNOSIS: Left breast cancer status post chemotherapy, radiation. PROCEDURE: Removal of a right sided internal jugular single-lumen Port-A-Cath. ANESTHESIA: General laryngeal mask airway anesthesia. PRIMARY SURGEON: Paty Vivar M.D. LOCOMOTIVE ENGINEER: Jorge Mcdonough COMPLICATIONS: There were no complications. Briefly, the patient is a 56-year-old post menopausal female with Meryl, English, and Serbian descent who was diagnosed with a left breast cancer back in January 2017. Core biopsy showed a 2.1-cm cancer in the left breast, and she had positive nodes at that time. The cancer is poorly differentiated, triple negative breast cancer. She underwent neoadjuvant chemotherapy and then underwent a left breast partial mastectomy with mastopexy and axillary lymph node dissection in May of 2017. She ended up still having positive nodes and underwent an axillary lymph node dissection. She required more chemotherapy with postoperatively and had radiation to the left breast. Chemotherapy was delivered to a right sided single lumen Port-A-Cath, and she now comes in for removal. The patient was brought in through ambulatory surgery on January 17, 2018. In the holding area, site verification was made. Informed consent was obtained. She was brought into the operating room and laid down on the OR table in the supine position. Venodynes were placed on the lower extremities. She did not receive any antibiotics given the small nature of the excision. The upper right chest wall was sterilely prepped and draped in the usual fashion. She was just given IV sedation at first, and we gave her local anesthesia with 1% lidocaine. The previous Port-A-Cath scar was excised and dissection is undertaken around the Port-A-Cath. The patient had some issues and was moving a fair amount at this point and could not be more sedated given some likely undiagnosed sleep apnea. Laryngeal mask airway tube was used, and she did well for the rest of the procedure using general anesthesia. The Port-A-Cath chamber was completely removed with the catheter intact and sent to pathology as specimen. The capsule around the catheter was removed as well. Hemostasis was achieved. The wound was then closed using interrupted 3-0 deep dermal Vicryl suture and a running 4-0 subcuticular Biosyn suture. Dermabond and sterile dressing was applied over the wound. She tolerated the procedure well without difficulty. Laryngeal mask airway tip was removed at the end of the case, and she was brought back to the recovery room where she will be recovered and discharged home the same day. All sponge, needle counts were correct at the end of the case, and estimated blood loss was minimal. PATY VIVAR M.D. [id number]
--- NOTE | 2018-01-19 11:37 | PATH ---
Surgical Pathology Report Patient Name: SHANNON SCHMITT [facility]. Rec. #: [id number] /Age/Gender: 1960 (Age: 57) / F Account: [id number] Location: [facility] Taken: 01/17/2018 Received: 01/17/2018 Reported: 01/19/2018 Physicians: Ramy Vivar M.D. Specimen(s) Received EXPLANTED PORTACATH Clinical History Left breast cancer Final Diagnosis PORT-A-CATH, EXPLANTATION: PORT-A-CATH. MACROSCOPIC DIAGNOSIS. Electronically Signed Bel Briggs M.D. Gross Description Received fresh labeled "explanted Port-A-Cath" is a 2.7 x 2.5 x 1.5 cm purple, triangular device, consistent with a Port-A-Cath. The port displays a 23 cm in length portion of white tubing extending from one aspect. No soft tissue is present. No sections are submitted, gross only. /01/18/2018 [place]/01/18/2018
== END 2018-01-17 16:00 | disposition home or self-care (01) ==
LOC: FASU 11:27
PROVIDERS: ATTEND Surgery Surgical Oncology
PROC: 0JPT3WZ Removal of Totally Implantable Vascular Access Device from Trunk Subcutaneous Tissue and Fascia, Percutaneous Approach (ICD-10-PCS; principal; 2018-01-17 13:39)
DX: Z45.2 Encounter for adjustment and management of vascular access device (principal); C50.212 Malignant neoplasm of upper-inner quadrant of left female breast; Z92.21 Personal history of antineoplastic chemotherapy; Z92.3 Personal history of irradiation; J45.909 Unspecified asthma, uncomplicated; Z90.710 Acquired absence of both cervix and uterus; Z87.891 Personal history of nicotine dependence
CPT/HCPCS: 82962; 88300-TC; 94760

== ENCOUNTER → 2018-12-11 | Day surgery (SDC) | payer OTHER, BC ==
--- NOTE | 2018-12-12 18:12 | PATH ---
Cytology Non-Gynecological Report Patient Name: SHANNON SCHMITT [facility]. Rec. #: [id number] /Age/Gender: 1960 (Age: 58) / F Account: [id number] Location: RADIOLOGY INTER Taken: 12/11/2018 Received: 12/11/2018 Reported: 12/12/2018 Physicians: Sudeep Rojo M.D. Specimen(s) Received RIGHT THYROID FNA Clinical History Right thyroid nodule, 1.60 x 1.31 x 0.91 cm Final Diagnosis THYROID, RIGHT, FINE NEEDLE ASPIRATION: SATISFACTORY FOR EVALUATION. B[place] CLASS II: BENIGN. CYTOLOGIC FINDINGS ARE CONSISTENT WITH A BENIGN FOLLICULAR NODULE. FOLLICULAR CELLS, RARE MACROPHAGES, AND COLLOID PRESENT. Electronically Signed Bel Briggs M.D. Gross Description Received are eight direct smears, four of which are air-dried and Diff-Quik stained, and four of which are alcohol fixed and Pap stained. Also received is 20 ml of bloody formalin from which one cellblock is prepared.
== END | disposition home or self-care (01) ==
LOC: JRADIR 09:10
PROVIDERS: ATTEND Internal Medicine Endocrinology, Diabetes & Metabolism
PROC: 0G9H3ZX Drainage of Right Thyroid Gland Lobe, Percutaneous Approach, Diagnostic (ICD-10-PCS; principal; 2018-12-11)
DX: E04.1 Nontoxic single thyroid nodule (principal)
CPT/HCPCS: 76942; 88173; 88305-TC

== ENCOUNTER 2020-09-25 08:18 | Emergency (ER) | payer OTHER ==
[2020-09-25 08:28] VITALS: BMI 38.6
[2020-09-25] MEDS ORDERED: BAMLANIVIMAB 700 MG in SODIUM CHLORIDE 180 ML IVPB ONE (09:09)
[2020-09-25 09:35] LABS: BASO % 0.5 % (0-2.0); EOS % 3.4 % (0-4.5); HEMATOCRIT 39.6 % (32.4-45.2); LYMPH % 34.9 % (8-40); MCH 29.5 pg (25.7-33.7); MEAN CELL VOLUME 89.4 fl (80-96); MEAN PLT VOLUME 8.2 fl (7.5-11.1); MONO % 11.4 % (3.8-10.2); NEUT % 49.8 % (42.8-82.8); PLATELET COUNT 395 K/MM3 (134-434); RBC 4.43 M/mm3 (3.60-5.2); RDW 14.5 % (11.6-15.6); WHITE BLOOD COUNT 6.4 K/mm3 (4.0-10.0)
[2020-09-25 09:51] LABS: POTASSIUM 4.2 mmol/L (3.5-5.1)
[2020-09-25 09:52] LABS: CALCIUM 9.4 mg/dL (8.5-10.1)
[2020-09-25 09:53] LABS: ALBUMIN 3.9 g/dl (3.4-5.0); BLOOD UREA NITROGEN 10.2 mg/dL (7-18)
[2020-09-25 09:56] LABS: CREATININE 0.6 mg/dL (0.55-1.3)
[2020-09-25 09:58] LABS: BILIRUBIN,TOTAL 0.4 mg/dL (0.2-1)
[2020-09-25 12:01] VITALS: BP 107/78; PULSE 80; TEMP 99.1
== END 2020-09-25 13:04 | disposition home or self-care (01) ==
LOC: JER 08:18
DX: U07.1 COVID-19 (principal)
CPT/HCPCS: 36415; 80053; 85025; 99284-25; M0239; Q0239

== ENCOUNTER 2022-11-22 04:29 | Day surgery (SDC) | payer OTHER ==
[2022-11-18 16:19] VITALS: BMI 35.2
[2022-11-22] MEDS ORDERED: KETAMINE HCL 500 MG/10 ML VIAL ONE (07:15)
[2022-11-22 08:43] VITALS: RESP 18
[2022-11-22 09:30] VITALS: BP 136/72; PULSE 62; TEMP 98
== END 2022-11-22 10:00 | disposition home or self-care (01) ==
LOC: JASU-ENDO 04:29
PROVIDERS: ATTEND Internal Medicine Gastroenterology
PROC: 0DBN8ZX Excision of Sigmoid Colon, Via Natural or Artificial Opening Endoscopic, Diagnostic (ICD-10-PCS; 2022-11-22)
PROC: 0DBP8ZX Excision of Rectum, Via Natural or Artificial Opening Endoscopic, Diagnostic (ICD-10-PCS; principal; 2022-11-22 08:00)
DX: Z12.11 Encounter for screening for malignant neoplasm of colon (principal); K62.1 Rectal polyp; K63.5 Polyp of colon; K64.8 Other hemorrhoids; Z80.0 Family history of malignant neoplasm of digestive organs
CPT/HCPCS: 82962; 88305-TC